=== PATIENT | male | born 1955 | race Asian ===

== ENCOUNTER 2016-10-31 08:32 | Inpatient (IN) | payer OTHER ==
[2016-10-31] VITALS (22 sets, daily range): BP systolic 95–140; BP diastolic 56–82; PULSE 71–86; RESP 16–27; Ht 165.1 cm; Wt 58.0 kg
[~2016-10-31] VITALS: Ht 165.1 cm; Wt 58.0 kg
[~2016-10-31 08:32] MED LIST: SOD CHLORIDE 0.9% 1,000 ML IV SCH
[2016-10-31 09:41] LABS: BASOPHILS % 0.4 % (0.0-2.0); EOSINOPHILS # 0.1 10^3/ul (0.0-0.5); EOSINOPHILS % 1.8 % (0.0-7.0); HEMATOCRIT 47.9 % (42.0-52.0); HEMOGLOBIN 15.4 g/dl (14.0-18.0); LYMPHOCYTES # 2.4 10^3/ul (0.8-2.9); LYMPHOCYTES % 34.6 % (15.0-51.0); MEAN CORPUSCULAR HEMOGLOBIN 28.5 pg (29.0-33.0); MEAN CORPUSCULAR HGB CONC 32.2 g/dl (32.0-37.0); MEAN CORPUSCULAR VOLUME 88.7 fl (82.0-101.0); MEAN PLATELET VOLUME 9.3 fl (7.4-10.4); MONOCYTE # 0.6 10^3/ul (0.3-0.9); MONOCYTES % 8.2 % (0.0-11.0); NEUTROPHILS % 54.6 % (39.0-77.0); PLATELET COUNT 173 10^3/UL (140-415); RED CELL DISTRIBUTION WIDTH 13.2 % (11.5-14.5); WHITE BLOOD COUNT 6.8 10^3/ul (4.8-10.8)
[2016-10-31] MEDS ORDERED: LIDOCAINE 1% (MDV) 20 ML INJ ONE (09:53)
[2016-10-31] MEDS ORDERED: IODIXANOL LOCM 100 ML BTL ONE (09:53)
[2016-10-31] MEDS ORDERED: FENTAnyl 50 MCG/ML VIAL ONE (09:53)
[2016-10-31] MEDS ORDERED: HEPARIN 1000 UNITS/ML 10 ML INJ ONE (09:53)
[2016-10-31] MEDS ORDERED: HEPARIN 1000 UNITS/NS (A-LINE) 1,000 ML ONE (09:53)
[2016-10-31] MEDS ORDERED: MIDAZOLAM 1 MG/ML 2 ML INJ ONE (09:53)
[2016-10-31] MEDS ORDERED: NITROGLYCERIN (IC) 100 MCG/ML INJ ONE (09:54)
[2016-10-31] MEDS ORDERED: VERAPAMIL 5 MG INJ ONE (09:54)
[2016-10-31 09:56] LABS: INR 0.91; PROTIME 12.2 Sec (12.2-14.2)
[2016-10-31 10:03] LABS: CALCIUM 9.4 mg/dl (8.4-10.2); CREATININE 0.82 mg/dl (0.61-1.24); POTASSIUM 4.6 mmol/L (3.5-5.1)
--- NOTE | 2016-10-31 11:10 | OPR ---
Date/Time of Note Date/Time of Note DATE: 10/31/16 TIME: 11:09 Operative Report Free Text/Dictation DATE OF PROCEDURE: 10/31/16 ASSISTANT DIRECTOR: Jeffrey Watson MD PROCEDURES PERFORMED: 1. Left heart catheterization. PREINTERVENTION DIAGNOSIS: 1. Shortness of breath, Positive Stress Echo POSTINTERVENTION DIAGNOSES: 1. Obstructive coronary artery disease with left main involvement SEDATION: Conscious sedation with fentanyl 50 mcg IV and Versed 2.5 mg IV. DESCRIPTION OF PROCEDURE: The patient placed on youth nutritional monitor, pulse oximetry and supplemental oxygen as necessary. The right groin wrist was prepped and draped in a sterile fashion and infiltrated with 1% lidocaine. Via the Seldinger technique, the right radial artery was accessed. A 5-Scottish sheath was inserted and through this the right coronary catheter and left coronary catheter and pigtail were advanced into the right coronary artery and left coronary artery and the left ventricle. Placement confirmed by fluoroscopy and hemodynamics. CATHETERIZATION FINDINGS: 1. Left main: distal 80-90% disease 2. LAD: Large caliber vessel with proximal 30-40% plaque 3. Circumflex: Medium caliber vessel mid 90-95% disease 4. Obtuse marginal1: small to medium caliber vessel with ostial 70% disease 5. Obtuse marginal2: small to medium caliber vessel with ostial 60-70% disease 5. RCA: Large dominant vessel with distal 60% plaque HEMODYNAMICS: LVEDP 12 mm Hg. No significant aortic valve gradient on pigtail pullback. TOTAL CONTRAST: 25cc FLUOROSCOPY TIME: 1.4 minutes. COMPLICATIONS: None. FINAL RESULTS: Multi-vessel obstructive coronary artery disease with left main involvement. RECOMMENDATIONS: 1. Admission for CABG evaluation (Dr. Oleary notified) 2. 2D echo 3. Carotid duplex 4. Check HgbA1c, Fasting lipids 5. ASA 81mg daily 6. Atorvastatin 40mg daily 7. Metoprolol 25mg BID JEFFREY WATSON Oct 31, 2016 11:10 balloon to nominal pressures x []. Repeat angiogram at this time revealed ERIS 3 flow. The stent was then placed across the lesion and successfully deployed at [] atmospheres. Post-stent dilatation was performed with the noncompliant balloon. Final coronary angiogram revealed adequate stent expansion, ERIS 3 flow, and no dissection. TOTAL CONTRAST: [] FLUOROSCOPY TIME: [] minutes. COMPLICATIONS: None. FINAL RESULTS: Successful balloon angioplasty and stent placement of the [] with drug-eluting stent []. Pre-intervention stenosis 99%, post-intervention stenosis less than 5%. RECOMMENDATIONS: 1. Continue aspirin 81 mg daily indefinitely. 2. Continue Plavix 75 mg daily for a minimum of 1 year. 3. [place] aggressive medical therapy with aspirin, statin, beta robe. JEFFREY WATSON Oct 31, 2016 11:10
--- NOTE | 2016-10-31 12:41 | CONS ---
DATE OF ADMISSION: 10/31/2016 DATE OF CONSULTATION: 10/31/2016 REASON FOR CONSULTATION: Evaluation for coronary artery bypass grafting. Thank you, Dr. Devries, for asking me to see this patient. HISTORY OF PRESENT ILLNESS: A 61-year-old male with a history of shortness of breath, admitted to undergo cardiac catheterization, which was done today, which shows 80 percent to 90 percent left main disease, 30 percent to 40 percent LAD disease, in addition to a 90 percent circumflex disease and a 50 percent to 60 percent right coronary artery disease, in addition to 60 percent to 70 percent disease in the obtuse marginal 1 and obtuse marginal 2. The patient currently does not have chest pain. PAST MEDICAL HISTORY: Hypertension, hyperlipidemia. MEDICATIONS: Include: 1. Metoprolol. 2. Atorvastatin. 3. Aspirin. PAST SURGICAL HISTORY: None. ALLERGIES: NONE. SOCIAL HISTORY: No smoking, drinking, or drug use. PHYSICAL EXAMINATION: VITAL SIGNS: Blood pressure is 110/60, pulse is 80, respirations 18. HEART: Regular rate and rhythm. No murmurs. ABDOMEN: Soft. EXTREMITIES: Warm. LABORATORY: Hemoglobin 15.4, white count 6.8, platelet count 173. Normal coagulation factors. A creatinine of 0.82. IMPRESSION: Coronary artery disease involving left main. RECOMMENDATIONS: Patient will need coronary artery bypass grafting. We will admit for observation. We will also get a CT, carotid duplex. Discussed with the patient and Dr. Devries. Dictated By: Hayden Oleary MD /laura/jennifer /Document#: [id number]
[2016-10-31] MEDS ORDERED: SOD CHLORIDE 0.9% 1,000 ML IV SCH (13:30)
--- NOTE | 2016-10-31 15:29 | RADRPT ---
Vent Rate: 81 bpm RR Interval: 0 msec VT Interval: 152 msec QRS Duration: 78 msec QT Interval: 370 msec QTC Interval: 429 msec P-R-T [place]: 72 - 80 - 93 degrees Sinus rhythm with occasional premature ventricular complexes ST abnormality, possible digitalis effect Abnormal ECG Electronically Signed By: Michael Alatorre [id number]
--- NOTE | 2016-10-31 16:51 | HP ---
Date/Time of Note Date/Time of Note DATE: 10/31/16 TIME: 16:50 Assessment/Plan VTE Prophylaxis VTE Prophylaxis Intervention: SCD's Lines/Catheters IV Catheter Type (from Nrsg): Peripheral IV Assessment/Plan Assessment/Plan 61 yo M with CAD admitted for CABG eval after [facility] today revealed sig L main disease PLAN cards/CT surg following TTE and carotid dopplers ordered statin, bb, antiplatelet agent (plavix as pt with alleged asa allergy) diet as per cards and CT surgery a1c, lipids with AM labs DVT prophx HPI/ROS Admit Date/Time Admit Date/Time Oct 31, 2016 at 11:41 Hx of Present Illness 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 Cath today as above. Pt currently without chest pain, SOB or leg swelling PMH/Family/Social Social History lives in the community Smoking Status: Never smoker Exam/Review of Systems Vital Signs Vitals Vital Signs Date Time Temp Pulse Resp B/P Pulse Ox O2 Delivery O2 Flow Rate FiO2 10/31/16 16:13 77 10/31/16 15:21 98.4 18 136/80 100 10/31/16 12:39 Room Air Exam Exam nad MMM EOMI lungs clear abd soft no rashes no le edema [facility] report reviewed Labs Result Diagram: 10/31/16 0930 10/31/16 0930 Medications Medications Current Medications Enoxaparin Sodium (Lovenox) 40 mg DAILY SC ; Start 11/01/16 at 09:00 GLENN PHAN MD Oct 31, 2016 16:51
[2016-10-31] MEDS ORDERED: NACL 0.9% 3 ML SYG IV SCH (17:00)
--- NOTE | 2016-10-31 17:45 | RADRPT ---
PROCEDURE: US carotid arteries. CLINICAL INDICATION: Preoperative for CABG. TECHNIQUE: Multiple sonographic images of the carotid arteries and vertebral arteries were obtaine d utilizing manzano scale, duplex, and color-flow imaging. The images were reviewed on a PACS workstati on. COMPARISON: No prior studies are available for comparison. FINDINGS: Evaluation of the right carotid bifurcation region reveals mild atherosclerotic disease. Evaluation of the left carotid bifurcation region reveals mild atherosclerotic disease. There is antegrade flow within the vertebral arteries bilaterally. RIGHT CAROTID MEASUREMENTS: Common Carotid [id number] (cm/sec) Internal Carotid Artery 79 (cm/sec) External Carotid Artery 108 (cm/sec) Vertebral Artery 58 (cm/sec) Internal Carotid/Common Carotid1.2 LEFT CAROTID MEASUREMENTS: Common Carotid [id number] (cm/sec) Internal Carotid Artery 87 (cm/sec) External Carotid Artery 86 (cm/sec) Vertebral Artery 76 (cm/sec) Internal Carotid/Common Carotid1.0 Validated velocity measurements with angiographic measurements. Velocity criteria are extrapolated f rom diameter data as defined by the Society of Radiologists in Ultrasound Consensus Conference. Radi ology 2003; 229;340-346. This study does indirectly reference the measurement of the distal ICA chloe meter as the denominator for stenosis measurement. IMPRESSION: 1. Less than 50% stenosis bilaterally in the internal carotid arteries. 2. Normal antegrade flow in the vertebral arteries bilaterally. RPTAT: QQ SRU Consensus Conference Criteria for the Diagnosis of Carotid Artery Stenosis* Degree of Stenosis, % ICA PSV, cm/sec Plaque Estimate, % ICA/CCA PSV Ratio Normal <125 None <2.0 <50 <125 <50 <2.0 50 69 125-230 >50 2.0-4.0 >70 but less than near occlusion >230 >50 <4.0 Near occlusion High, low, or undetectable Visible Variable Total occlusion Undetectable Visible, no detectable lumen Not applicable *Cartoid artery stenosis: manzano-scale and Doppler US diagnosis. Society of Radiologists in Ultrasound Consensus Conference. Radiology 2003; 229: 340-346 .Juma Ryder MD, Date Time Electronically viewed and signed by .Juma Ryder MD, on 10/31/2016 17:45 .R/
[2016-10-31] MEDS: ATORVASTATIN 40 MG TAB PO SCH (20:50)
[2016-10-31] MEDS: METOPROLOL 25 MG TAB PO SCH (20:50)
[2016-11-01] VITALS (12 sets, daily range): BP systolic 95–133; BP diastolic 54–71; PULSE 50–63; RESP 18–20
--- NOTE | 2016-11-01 08:23 | CONS ---
Date/Time of Note Date/Time of Note DATE: 11/01/16 TIME: 08:20 Assessment/Plan Assessment/Plan Chief Complaint/Hosp Course Impression: Obstructive coronary artery disease with left main involvement Positive stress echo Premature ventricular contractions Recommendation/plan: 1. CABG evaluation (Dr. Oleary notified) 2. 2D echo 3. Carotid duplex 4. Check HgbA1c, Fasting lipids 5. ASA 81mg daily (patient with questionable allergy; will give test dose in house) 6. NO PLAVIX prior to CABG (did not receive any dose, order d/c'd) 6. Atorvastatin 40mg daily 7. Metoprolol 25mg BID Problems: Consultation Date/Type/Reason Admit Date/Time Oct 31, 2016 at 11:41 Initial Consult Date Type of Consultation: Cardiology 24 HR Interval Summary Free Text/Dictation no chest pain or shortness of breath Exam/Review of Systems Vital Signs Vitals Vital Signs Date Time Temp Pulse Resp B/P Pulse Ox O2 Delivery O2 Flow Rate FiO2 11/01/16 04:42 97.9 20 129/71 100 11/01/16 04:09 50 10/31/16 12:39 Room Air Intake and Output 10/31/16 10/31/16 11/01/16 14:59 22:59 06:59 Intake Total 400 ml 450 ml Balance 400 ml 450 ml Exam Constitutional: alert, oriented, well developed Psych: nl mood/affect, no complaints Head: atraumatic, normocephalic Eyes: EOMI, PERRL, nl conjunctiva, nl lids, nl sclera ENMT: nl external ears & nose, nl lips & teeth, nl nasal mucosa & septum Neck: non-tender, supple Respiratory: clear to auscultation, normal air movement Cardiovascular: nl pulses, regular rate and rhythm Gastrointestinal: nl liver, spleen, non-tender, soft Musculoskeletal: nl extremities to inspection, nl gait and stance Extremities: normal pulses Neurological: DUDE RANCH MANAGER II-XII 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, nl mental status, nl speech, nl strength Skin: nl turgor, No rash or lesions Lymph: nl lymph nodes Results Result Diagram: 10/31/1630 10/31/1630 Results 24 hrs Laboratory Tests Test 10/31/16 09:30 White Blood Count 6.8 Red Blood Count 5.40 Hemoglobin 15.4 Hematocrit 47.9 Mean Corpuscular Volume 88.7 Mean Corpuscular Hemoglobin 28.5 L Mean Corpuscular Hemoglobin Concent 32.2 Red Cell Distribution Width 13.2 Platelet Count 173 Mean Platelet Volume 9.3 Neutrophils % 54.6 Lymphocytes % 34.6 Monocytes % 8.2 Eosinophils % 1.8 Basophils % 0.4 Nucleated Red Blood Cells % 0.0 Neutrophils # (Manual) 3.7 Lymphocytes # 2.4 Monocytes # 0.6 Eosinophils # 0.1 Basophils # 0.0 Nucleated Red Blood Cells # 0.0 Prothrombin Time 12.2 Prothrombin Time Ratio 1.0 INR International Normalized Ratio 0.91 Sodium Level 142 Potassium Level 4.6 Chloride Level 104 Carbon Dioxide Level 29 Anion Gap 14 Blood Urea Nitrogen 13 Creatinine 0.82 Glucose Level 93 Calcium Level 9.4 Medications Medications Current Medications Enoxaparin Sodium (Lovenox) 40 mg DAILY SC ; Start 11/01/16 at 09:00 Atorvastatin Calcium (Lipitor) 40 mg HS PO Last administered on 10/31/16 20:50 ; Admin Dose 40 MG; Start 10/31/16 at 21:00 Clopidogrel Bisulfate (plaVIX) 75 mg DAILY PO ; Start 11/01/16 at 09:00 Metoprolol Tartrate (Lopressor) 25 mg BID PO Last administered on 10/31/16 20: 50; Admin Dose 25 MG; Start 10/31/16 at 21:00 NEHEMIAS WATSON Nov 01, 2016 08:23
[2016-11-01 08:57] LABS: BASOPHILS % 0.6 % (0.0-2.0); EOSINOPHILS # 0.1 10^3/ul (0.0-0.5); EOSINOPHILS % 1.7 % (0.0-7.0); HEMATOCRIT 52.3 % (42.0-52.0); HEMOGLOBIN 16.3 g/dl (14.0-18.0); LYMPHOCYTES # 1.8 10^3/ul (0.8-2.9); LYMPHOCYTES % 27.4 % (15.0-51.0); MEAN CORPUSCULAR HEMOGLOBIN 28.2 pg (29.0-33.0); MEAN CORPUSCULAR HGB CONC 31.2 g/dl (32.0-37.0); MEAN CORPUSCULAR VOLUME 90.3 fl (82.0-101.0); MEAN PLATELET VOLUME 9.8 fl (7.4-10.4); MONOCYTE # 0.5 10^3/ul (0.3-0.9); MONOCYTES % 7.1 % (0.0-11.0); NEUTROPHILS % 62.9 % (39.0-77.0); PLATELET COUNT 154 10^3/UL (140-415); RED BLOOD COUNT 5.79 10^6/ul (4.70-6.10); RED CELL DISTRIBUTION WIDTH 13.6 % (11.5-14.5); WHITE BLOOD COUNT 6.6 10^3/ul (4.8-10.8)
[2016-11-01] MEDS ORDERED: METOPROLOL (XL) 25 MG TAB PO SCH (09:00)
[2016-11-01] MEDS ORDERED: ASPIRIN 81 MG TAB PO SCH (09:00)
[2016-11-01] MEDS ORDERED: CLOPIDOGREL 75 MG TAB PO SCH (09:00)
[2016-11-01 09:23] LABS: ALBUMIN 4.4 g/dl (3.3-4.9); ALBUMIN/GLOBULIN RATIO 1.25; CALCIUM 9.3 mg/dl (8.4-10.2); CHOL/HDL RATIO 3.3 RATIO; CREATININE 0.8 mg/dl (0.61-1.24); POTASSIUM 4.8 mmol/L (3.5-5.1); TOTAL PROTEIN 7.9 g/dl (6.1-8.1)
[2016-11-01] MEDS: ASPIRIN 81 MG TAB PO SCH (10:33)
[2016-11-01] MEDS: ENOXAPARIN 40 MG/0.4 ML SYG SC SCH (10:34)
[2016-11-01] MEDS: METOPROLOL 25 MG TAB PO SCH ×2 (10:34→20:46)
--- NOTE | 2016-11-01 14:39 | PN ---
Date/Time of Note Date/Time of Note DATE: 11/01/16 TIME: 14:36 Assessment/Plan VTE Prophylaxis VTE Prophylaxis Intervention: other Lines/Catheters IV [facility] Central line still needed: No Urinary Cath still in place: No Assessment/Plan Assessment/Plan IMPRESSION: Coronary artery disease involving left main. RECOMMENDATIONS: Patient will need coronary artery bypass grafting. We will admit for observation. Carotid dupplex 1. Less than 50% stenosis bilaterally in the internal carotid arteries. 2. Normal antegrade flow in the vertebral arteries bilaterally. Carotid dupplex Plan for CABG on Thursday Subjective 24 Hr Interval Summary Gastrointestinal: no complaints Genitourinary: no complaints Musculoskeletal: no complaints Skin: no complaints Exam/Review of Systems Vital Signs Vitals Vital Signs Date Time Temp Pulse Resp B/P Pulse Ox O2 Delivery O2 Flow Rate FiO2 11/01/16 12:15 54 11/01/16 12:00 97.7 20 133/67 96 10/31/16 12:39 Room Air Intake and Output 10/31/16 10/31/16 11/01/16 15:00 23:00 07:00 Intake Total 400 ml 450 ml Balance 400 ml 450 ml Exam ENMT: nl external ears & nose, nl lips & teeth, nl nasal mucosa & septum Neck: non-tender, supple Respiratory: clear to auscultation, normal air movement Cardiovascular: nl pulses, regular rate and rhythm Results Result Diagram: 11/01/16 0821 11/01/16 0819 Results 24 hrs Laboratory Tests Test 11/01/16 08:19 11/01/16 08:21 Sodium Level 141 Potassium Level 4.8 Chloride Level 105 Carbon Dioxide Level 28 Anion Gap 13 Blood Urea Nitrogen 15 Creatinine 0.80 Glucose Level 80 Hemoglobin A1c 5.5 Calcium Level 9.3 Total Bilirubin 1.0 Direct Bilirubin 0.00 Indirect Bilirubin 1.0 Aspartate Amino Transf (AST/SGOT) 39 Alanine Aminotransferase (ALT/SGPT) 34 Alkaline Phosphatase 51 Total Protein 7.9 Albumin 4.4 Globulin 3.50 H Albumin/Globulin Ratio 1.25 Triglycerides Level 64 Cholesterol Level 205 H LDL Cholesterol, Calculated 131 HDL Cholesterol 61 Cholesterol/HDL Ratio 3.3 White Blood Count 6.6 Red Blood Count 5.79 Hemoglobin 16.3 Hematocrit 52.3 H Mean Corpuscular Volume 90.3 Mean Corpuscular Hemoglobin 28.2 L Mean Corpuscular Hemoglobin Concent 31.2 L Red Cell Distribution Width 13.6 Platelet Count 154 Mean Platelet Volume 9.8 Neutrophils % 62.9 Lymphocytes % 27.4 Monocytes % 7.1 Eosinophils % 1.7 Basophils % 0.6 Nucleated Red Blood Cells % 0.0 Neutrophils # (Manual) 4.2 Lymphocytes # 1.8 Monocytes # 0.5 Eosinophils # 0.1 Basophils # 0.0 Nucleated Red Blood Cells # 0.0 Medications Medications Current Medications Enoxaparin Sodium (Lovenox) 40 mg DAILY SC Last administered on 11/01/16 10:34 ; Admin Dose 40 MG; Start 11/01/16 at 09:00 Atorvastatin Calcium (Lipitor) 40 mg HS PO Last administered on 10/31/16 20:50 ; Admin Dose 40 MG; Start 10/31/16 at 21:00 Metoprolol Tartrate (Lopressor) 25 mg BID PO Last administered on 11/01/16 10: 34; Admin Dose 25 MG; Start 10/31/16 at 21:00 Aspirin (Aspirin) 81 mg DAILY PO Last administered on 11/01/16 10:33; Admin Dose 81 MG; Start 11/01/16 at 09:00 SHLOMO HUGHES MD Nov 01, 2016 14:39
--- NOTE | 2016-11-01 15:19 | PN ---
Date/Time of Note Date/Time of Note DATE: 11/01/16 TIME: 15:17 Assessment/Plan VTE Prophylaxis VTE Prophylaxis Intervention: SCD's Lines/Catheters Urinary Cath still in place: No Assessment/Plan Assessment/Plan 61 yo M with CAD admitted for CABG eval after [facility] today revealed sig L main disease PLAN cards/CT surg following TTE ordered; carotid Doppler complete statin, bb, defer antiplatelet agent pre op as per cards re diet as per cards and CT surgery LDL 130s, a1c 5.5 DVT prophx CABG tentatively scheduled for Thursday Subjective 24 Hr Interval Summary Free Text/Dictation No complaints Exam/Review of Systems Vital Signs Vitals Vital Signs Date Time Temp Pulse Resp B/P Pulse Ox O2 Delivery O2 Flow Rate FiO2 11/01/16 12:15 54 11/01/16 12:00 97.7 20 133/67 96 10/31/16 12:39 Room Air Intake and Output 10/31/16 10/31/16 11/01/16 15:00 23:00 07:00 Intake Total 400 ml 450 ml Balance 400 ml 450 ml Exam no mrg lungs clear abd soft no rashes no edema EKG with PVCs Results Result Diagram: 11/01/16 0821 11/01/16 0819 Results 24 hrs Laboratory Tests Test 11/01/16 08:19 11/01/16 08:21 Sodium Level 141 Potassium Level 4.8 Chloride Level 105 Carbon Dioxide Level 28 Anion Gap 13 Blood Urea Nitrogen 15 Creatinine 0.80 Glucose Level 80 Hemoglobin A1c 5.5 Calcium Level 9.3 Total Bilirubin 1.0 Direct Bilirubin 0.00 Indirect Bilirubin 1.0 Aspartate Amino Transf (AST/SGOT) 39 Alanine Aminotransferase (ALT/SGPT) 34 Alkaline Phosphatase 51 Total Protein 7.9 Albumin 4.4 Globulin 3.50 H Albumin/Globulin Ratio 1.25 Triglycerides Level 64 Cholesterol Level 205 H LDL Cholesterol, Calculated 131 HDL Cholesterol 61 Cholesterol/HDL Ratio 3.3 White Blood Count 6.6 Red Blood Count 5.79 Hemoglobin 16.3 Hematocrit 52.3 H Mean Corpuscular Volume 90.3 Mean Corpuscular Hemoglobin 28.2 L Mean Corpuscular Hemoglobin Concent 31.2 L Red Cell Distribution Width 13.6 Platelet Count 154 Mean Platelet Volume 9.8 Neutrophils % 62.9 Lymphocytes % 27.4 Monocytes % 7.1 Eosinophils % 1.7 Basophils % 0.6 Nucleated Red Blood Cells % 0.0 Neutrophils # (Manual) 4.2 Lymphocytes # 1.8 Monocytes # 0.5 Eosinophils # 0.1 Basophils # 0.0 Nucleated Red Blood Cells # 0.0 Medications Medications Current Medications Enoxaparin Sodium (Lovenox) 40 mg DAILY SC Last administered on 11/01/16 10:34 ; Admin Dose 40 MG; Start 11/01/16 at 09:00 Atorvastatin Calcium (Lipitor) 40 mg HS PO Last administered on 10/31/16 20:50 ; Admin Dose 40 MG; Start 10/31/16 at 21:00 Metoprolol Tartrate (Lopressor) 25 mg BID PO Last administered on 11/01/16 10: 34; Admin Dose 25 MG; Start 10/31/16 at 21:00 Aspirin (Aspirin) 81 mg DAILY PO Last administered on 11/01/16 10:33; Admin Dose 81 MG; Start 11/01/16 at 09:00 GLENN PHAN MD Nov 01, 2016 15:19
[2016-11-01] MEDS: ATORVASTATIN 40 MG TAB PO SCH (20:46)
[2016-11-02] VITALS (11 sets, daily range): BP systolic 106–128; BP diastolic 58–78; PULSE 53–63; RESP 17–19
[2016-11-02 07:56] LABS: BASOPHILS % 0.6 % (0.0-2.0); EOSINOPHILS # 0.1 10^3/ul (0.0-0.5); HEMATOCRIT 51.9 % (42.0-52.0); HEMOGLOBIN 16.4 g/dl (14.0-18.0); LYMPHOCYTES # 2.4 10^3/ul (0.8-2.9); LYMPHOCYTES % 34.2 % (15.0-51.0); MEAN CORPUSCULAR HEMOGLOBIN 28.1 pg (29.0-33.0); MEAN CORPUSCULAR HGB CONC 31.6 g/dl (32.0-37.0); MEAN PLATELET VOLUME 9.5 fl (7.4-10.4); MONOCYTE # 0.5 10^3/ul (0.3-0.9); MONOCYTES % 6.5 % (0.0-11.0); NEUTROPHILS % 56.4 % (39.0-77.0); PLATELET COUNT 173 10^3/UL (140-415); RED BLOOD COUNT 5.83 10^6/ul (4.70-6.10); RED CELL DISTRIBUTION WIDTH 13.6 % (11.5-14.5)
[2016-11-02 08:18] LABS: ALBUMIN 4.4 g/dl (3.3-4.9); ALBUMIN/GLOBULIN RATIO 1.22; BILIRUBIN,INDIRECT 0.9 mg/dl (0-1.1); BILIRUBIN,TOTAL 0.9 mg/dl (0.2-1.3); CALCIUM 9.6 mg/dl (8.4-10.2); CREATININE 0.77 mg/dl (0.61-1.24); POTASSIUM 4.5 mmol/L (3.5-5.1)
[2016-11-02] MEDS: ENOXAPARIN 40 MG/0.4 ML SYG SC SCH (08:51)
[2016-11-02] MEDS: ASPIRIN 81 MG TAB PO SCH (08:52)
[2016-11-02] MEDS: METOPROLOL 25 MG TAB PO SCH ×2 (08:53→21:00)
--- NOTE | 2016-11-02 12:05 | CONS ---
Date/Time of Note Date/Time of Note DATE: 11/02/16 TIME: 12:03 Assessment/Plan Assessment/Plan Chief Complaint/Hosp Course Impression: Obstructive coronary artery disease with left main involvement Positive stress echo Abnormal EKG Premature ventricular contractions Recommendation/plan: 1. CABG evaluation; for OR Thursday per Dr. Oleary 2. ASA 81mg daily (not true allergy, tolerating fine) 3. Atorvastatin 40mg daily 4. Metoprolol 25mg BID Problems: Consultation Date/Type/Reason Admit Date/Time Oct 31, 2016 at 11:41 Type of Consultation: Cardiology 24 HR Interval Summary Free Text/Dictation no chest pain or shortness of breath Exam/Review of Systems Vital Signs Vitals Vital Signs Date Time Temp Pulse Resp B/P Pulse Ox O2 Delivery O2 Flow Rate FiO2 11/02/16 08:14 58 11/02/16 07:54 98.0 18 115/64 98 10/31/16 12:39 Room Air Intake and Output 11/01/16 11/01/16 11/02/16 15:00 23:00 07:00 Intake Total 1020 ml 60 ml Balance 1020 ml 60 ml Exam Constitutional: alert, oriented, well developed Psych: nl mood/affect, no complaints Head: atraumatic, normocephalic Eyes: EOMI, PERRL, nl conjunctiva, nl lids, nl sclera ENMT: nl external ears & nose, nl lips & teeth, nl nasal mucosa & septum Neck: non-tender, supple Respiratory: clear to auscultation, normal air movement Cardiovascular: nl pulses, regular rate and rhythm Gastrointestinal: nl liver, spleen, non-tender, soft Musculoskeletal: nl extremities to inspection, nl gait and stance Extremities: normal pulses Neurological: PROP DRAWER II-XII intact, nl mental status, nl speech, nl strength Skin: nl turgor, No rash or lesions Lymph: nl lymph nodes Results Result Diagram: 11/02/16 0730 11/02/16 0724 Results 24 hrs Laboratory Tests Test 11/02/16 07:24 11/02/16 07:30 Sodium Level 140 Potassium Level 4.5 Chloride Level 104 Carbon Dioxide Level 28 Anion Gap 13 Blood Urea Nitrogen 16 Creatinine 0.77 Glucose Level 78 Calcium Level 9.6 Total Bilirubin 0.9 Direct Bilirubin 0.00 Indirect Bilirubin 0.9 Aspartate Amino Transf (AST/SGOT) 30 Alanine Aminotransferase (ALT/SGPT) 40 Alkaline Phosphatase 60 Total Protein 8.0 Albumin 4.4 Globulin 3.60 H Albumin/Globulin Ratio 1.22 White Blood Count 7.0 Red Blood Count 5.83 Hemoglobin 16.4 Hematocrit 51.9 Mean Corpuscular Volume 89.0 Mean Corpuscular Hemoglobin 28.1 L Mean Corpuscular Hemoglobin Concent 31.6 L Red Cell Distribution Width 13.6 Platelet Count 173 Mean Platelet Volume 9.5 Neutrophils % 56.4 Lymphocytes % 34.2 Monocytes % 6.5 Eosinophils % 2.0 Basophils % 0.6 Nucleated Red Blood Cells % 0.0 Neutrophils # (Manual) 3.9 Lymphocytes # 2.4 Monocytes # 0.5 Eosinophils # 0.1 Basophils # 0.0 Nucleated Red Blood Cells # 0.0 Medications Medications Current Medications Enoxaparin Sodium (Lovenox) 40 mg DAILY SC Last administered on 11/01/16 10:34 ; Admin Dose 40 MG; Start 11/01/16 at 09:00 Atorvastatin Calcium (Lipitor) 40 mg HS PO Last administered on 11/01/16 20:46 ; Admin Dose 40 MG; Start 10/31/16 at 21:00 Metoprolol Tartrate (Lopressor) 25 mg BID PO Last administered on 11/02/16 08: 53; Admin Dose 25 MG; Start 10/31/16 at 21:00 Aspirin (Aspirin) 81 mg DAILY PO Last administered on 11/02/16 08:52; Admin Dose 81 MG; Start 11/01/16 at 09:00 NEHEMIAS WATSON Nov 02, 2016 12:05
--- NOTE | 2016-11-02 16:31 | PN ---
Date/Time of Note Date/Time of Note DATE: 11/02/16 TIME: 16:30 Assessment/Plan VTE Prophylaxis VTE Prophylaxis Intervention: SCD's Lines/Catheters IV Catheter Type (from Nrsg): Peripheral IV Urinary Cath still in place: No Assessment/Plan Assessment/Plan 61 yo M with CAD admitted for CABG eval after [facility] revealed sig L main disease PLAN cards/CT surg following TTE ordered; carotid Doppler complete statin, bb, asa diet as per cards and CT surgery a1c 5.5 DVT prophx CABG tentatively scheduled for Thursday Subjective 24 Hr Interval Summary Free Text/Dictation sitting in chair, no complaints Exam/Review of Systems Vital Signs Vitals Vital Signs Date Time Temp Pulse Resp B/P Pulse Ox O2 Delivery O2 Flow Rate FiO2 11/02/16 16:14 97.0 80 18 110/78 98 10/31/16 12:39 Room Air Intake and Output 11/01/16 11/01/16 11/02/16 15:00 23:00 07:00 Intake Total 1020 ml 60 ml Balance 1020 ml 60 ml Exam using his phone resp nonlabored no gross abd distension no rashes no edema Results Result Diagram: 11/02/16 0730 11/02/16 0724 Results 24 hrs Laboratory Tests Test 11/02/16 07:24 11/02/16 07:30 Sodium Level 140 Potassium Level 4.5 Chloride Level 104 Carbon Dioxide Level 28 Anion Gap 13 Blood Urea Nitrogen 16 Creatinine 0.77 Glucose Level 78 Calcium Level 9.6 Total Bilirubin 0.9 Direct Bilirubin 0.00 Indirect Bilirubin 0.9 Aspartate Amino Transf (AST/SGOT) 30 Alanine Aminotransferase (ALT/SGPT) 40 Alkaline Phosphatase 60 Total Protein 8.0 Albumin 4.4 Globulin 3.60 H Albumin/Globulin Ratio 1.22 White Blood Count 7.0 Red Blood Count 5.83 Hemoglobin 16.4 Hematocrit 51.9 Mean Corpuscular Volume 89.0 Mean Corpuscular Hemoglobin 28.1 L Mean Corpuscular Hemoglobin Concent 31.6 L Red Cell Distribution Width 13.6 Platelet Count 173 Mean Platelet Volume 9.5 Neutrophils % 56.4 Lymphocytes % 34.2 Monocytes % 6.5 Eosinophils % 2.0 Basophils % 0.6 Nucleated Red Blood Cells % 0.0 Neutrophils # (Manual) 3.9 Lymphocytes # 2.4 Monocytes # 0.5 Eosinophils # 0.1 Basophils # 0.0 Nucleated Red Blood Cells # 0.0 Medications Medications Current Medications Enoxaparin Sodium (Lovenox) 40 mg DAILY SC Last administered on 11/01/16 10:34 ; Admin Dose 40 MG; Start 11/01/16 at 09:00 Atorvastatin Calcium (Lipitor) 40 mg HS PO Last administered on 11/01/16 20:46 ; Admin Dose 40 MG; Start 10/31/16 at 21:00 Metoprolol Tartrate (Lopressor) 25 mg BID PO Last administered on 11/02/16 08: 53; Admin Dose 25 MG; Start 10/31/16 at 21:00 Aspirin (Aspirin) 81 mg DAILY PO Last administered on 11/02/16 08:52; Admin Dose 81 MG; Start 11/01/16 at 09:00 GLENN PHAN MD Nov 02, 2016 16:30
[2016-11-02] MEDS: ATORVASTATIN 40 MG TAB PO SCH (21:09)
[2016-11-03] VITALS (11 sets, daily range): BP systolic 96–127; BP diastolic 51–66; PULSE 54–96; RESP 17–20
[2016-11-03 07:45] LABS: BASOPHILS % 0.3 % (0.0-2.0); EOSINOPHILS # 0.2 10^3/ul (0.0-0.5); EOSINOPHILS % 2.7 % (0.0-7.0); HEMATOCRIT 47.9 % (42.0-52.0); HEMOGLOBIN 15.4 g/dl (14.0-18.0); LYMPHOCYTES # 1.7 10^3/ul (0.8-2.9); MEAN CORPUSCULAR HEMOGLOBIN 28.7 pg (29.0-33.0); MEAN CORPUSCULAR HGB CONC 32.2 g/dl (32.0-37.0); MEAN CORPUSCULAR VOLUME 89.2 fl (82.0-101.0); MEAN PLATELET VOLUME 10.2 fl (7.4-10.4); MONOCYTE # 0.5 10^3/ul (0.3-0.9); MONOCYTES % 7.6 % (0.0-11.0); NEUTROPHILS % 61.1 % (39.0-77.0); PLATELET COUNT 157 10^3/UL (140-415); RED BLOOD COUNT 5.37 10^6/ul (4.70-6.10); RED CELL DISTRIBUTION WIDTH 13.3 % (11.5-14.5)
[2016-11-03] MEDS: METOPROLOL 25 MG TAB PO SCH ×2 (08:22→20:37)
[2016-11-03] MEDS: ENOXAPARIN 40 MG/0.4 ML SYG SC SCH (08:23)
[2016-11-03 08:26] LABS: ALBUMIN/GLOBULIN RATIO 1.29; BILIRUBIN,INDIRECT 0.5 mg/dl (0-1.1); BILIRUBIN,TOTAL 0.5 mg/dl (0.2-1.3); CREATININE 0.91 mg/dl (0.61-1.24); POTASSIUM 4.7 mmol/L (3.5-5.1); TOTAL PROTEIN 7.1 g/dl (6.1-8.1)
[2016-11-03] MEDS: ASPIRIN 81 MG TAB PO SCH (08:29)
--- NOTE | 2016-11-03 15:54 | RADRPT ---
PROCEDURE: XR Chest. CLINICAL INDICATION: Preoperative. TECHNIQUE: Single frontal view. COMPARISON: None. FINDINGS: The lungs are clear. The heart size is normal. There is no pleural effusion. There is no pneumothorax. IMPRESSION: 1. Normal chest radiograph. RPTAT: QQ .Juma Ryder MD, Date Time Electronically viewed and signed by .Juma Ryder MD, on 11/03/2016 15:53 .R/
--- NOTE | 2016-11-03 16:53 | PN ---
Date/Time of Note Date/Time of Note DATE: 11/03/16 TIME: 16:46 Assessment/Plan VTE Prophylaxis VTE Prophylaxis Intervention: LMWH Lines/Catheters IV Catheter Type (from Nrs): Peripheral IV Urinary Cath still in place: No Assessment/Plan Chief Complaint/Hosp Course Assessment/Plan: 61 yo M with CAD admitted for CABG eval after LHC revealed sig L main disease PLAN: cards/CT surg following TTE ordered; carotid Doppler complete statin, bb, asa diet as per cards and CT surgery a1c 5.5 DVT prophx CABG scheduled for Thursday Problems: Exam/Review of Systems Vital Signs Vitals Vital Signs Date Time Temp Pulse Resp B/P Pulse Ox O2 Delivery O2 Flow Rate FiO2 11/03/16 16:15 75 11/03/16 16:11 97.7 20 127/60 100 10/31/16 12:39 Room Air Intake and Output 11/02/16 11/02/16 11/03/16 15:00 23:00 07:00 Intake Total 750 ml 320 ml Output Total 1000 ml 525 ml Balance -250 ml -205 ml Exam No acute distress resp nonlabored no gross abd distension no rashes no edema Results Result Diagram: 11/03/16 0655 11/03/16 0658 Results 24 hrs Laboratory Tests Test 11/03/16 06:55 11/03/16 06:58 White Blood Count 6.0 Red Blood Count 5.37 Hemoglobin 15.4 Hematocrit 47.9 Mean Corpuscular Volume 89.2 Mean Corpuscular Hemoglobin 28.7 L Mean Corpuscular Hemoglobin Concent 32.2 Red Cell Distribution Width 13.3 Platelet Count 157 Mean Platelet Volume 10.2 Neutrophils % 61.1 Lymphocytes % 28.0 Monocytes % 7.6 Eosinophils % 2.7 Basophils % 0.3 Nucleated Red Blood Cells % 0.0 Neutrophils # (Manual) 3.6 Lymphocytes # 1.7 Monocytes # 0.5 Eosinophils # 0.2 Basophils # 0.0 Nucleated Red Blood Cells # 0.0 Sodium Level 140 Potassium Level 4.7 Chloride Level 104 Carbon Dioxide Level 29 Anion Gap 12 Blood Urea Nitrogen 20 Creatinine 0.91 Glucose Level 82 Calcium Level 9.0 Total Bilirubin 0.5 Direct Bilirubin 0.00 Indirect Bilirubin 0.5 Aspartate Amino Transf (AST/SGOT) 28 Alanine Aminotransferase (ALT/SGPT) 37 Alkaline Phosphatase 45 Total Protein 7.1 Albumin 4.0 Globulin 3.10 Albumin/Globulin Ratio 1.29 Medications Medications Current Medications Enoxaparin Sodium (Lovenox) 40 mg DAILY SC Last administered on 11/01/16 10:34 ; Admin Dose 40 MG; Start 11/01/16 at 09:00 Atorvastatin Calcium (Lipitor) 40 mg HS PO Last administered on 11/02/16 21:09 ; Admin Dose 40 MG; Start 10/31/16 at 21:00 Metoprolol Tartrate (Lopressor) 25 mg BID PO Last administered on 11/02/16 08: 53; Admin Dose 25 MG; Start 10/31/16 at 21:00 Aspirin (Aspirin) 81 mg DAILY PO Last administered on 11/03/16 08:29; Admin Dose 81 MG; Start 11/01/16 at 09:00 ANGELO FARMER Nov 03, 2016 16:53
[2016-11-03] MEDS ORDERED: ACETAMINOPHEN 325 MG TAB PO PRN (17:00)
[2016-11-03] MEDS ORDERED: ONDANSETRON 4 MG INJ IV PRN (17:00)
[2016-11-03] MEDS: FAMOTIDINE 20 MG TAB PO SCH (17:31)
--- NOTE | 2016-11-03 18:23 | RADRPT ---
Echocardiogram Report Patient Name: LY BOWENS Gender: Male Date: 1955 Study Date: 01-Nov-2016 [place]: Jagdeep Chang [facility] Location: 5555 Ref. Physician: GLENN PHAN Quality: Adequate Procedures: Transthoracic echocardiogram with complete 2D, M-Mode, and doppler examination. Indications: Coronary Artery Disease. 2D/M Mode Doppler Measurement Value Normal Ranges Measurement Value Normal Ranges LVIDd 2D 4.4 3.5 - 5.6 cm AV Peak Marvel 1.2 m/sec LVIDs 2D 3.2 2.1 - 4.1 cm AV Peak PG 6.0 mmHg FS 2D 28.0 % AI Peak PG 25.0 mmHg LVPWd 2D 1.0 0.6 - 1.1 cm AI Peak Marvel 2.5 m/sec IVSd 2D 0.9 0.6 - 1.1 cm AI PHT 844.0 msec IVS/LVPW 2D 0.9 LVOT Peak Marvel 0.9 m/sec AoR Diam 2D 2.7 2.0 - 3.7 cm LVOT Peak PG 3.0 mmHg LA/Ao 2D 1 0 - 1 MV E Peak Marvel 0.8 m/sec EDV 2D 86.9 cm3 MV A Peak Marvel 0.7 m/sec ESV 2D 32.5 cm3 MV E/A 1.2 LA Dimen 2D 3.1 2.3 - 4.0 cm MV Decel Time 151 msec MV E/A 1.2 TR Peak Marvel 2.6 m/sec TR Peak PG 27.0 mmHg RVSP 35.0 mmHg Findings Left Ventricle: Lower limits of normal systolic function. Normal left ventricular cavity size. Normal left ventricular wall thickness. Ejection fraction is visually estimated at 50 %. Abnormal Diastolic Function. Right Ventricle: Normal right ventricular size. Normal right ventricular systolic function. Left Atrium: The left atrium is normal in size. Right Atrium: The right atrium is normal in size. Mitral Valve: Mild mitral leaflet calcification. Mild mitral annular calcification. Mild mitral valve regurgitation. Aortic Valve: Aortic sclerosis without stenosis. Mild aortic valve regurgitation. Tricuspid Valve: Normal appearance of the tricuspid valve. Estimated peak PA systolic pressure 35 mmHg. There is mild tricuspid regurgitation. Pulmonic Valve: Pulmonic valve not well visualized. There is trace pulmonic regurgitation. Pericardium: Normal pericardium with no significant pericardial effusion. Aorta: Normal aortic root. IVC: Normal size and poor respiratory collapse consistent with elevated right atrial pressure. Conclusions 1.Lower limits of normal systolic function. Normal left ventricular cavity size. Normal left ventricular wall thickness. Ejection fraction is visually estimated at 50 %. Abnormal Diastolic Function. 2.Mild mitral leaflet calcification. Mild mitral annular calcification. Mild mitral valve regurgitation. 3.Aortic sclerosis without stenosis. Mild aortic valve regurgitation. 4.Normal appearance of the tricuspid valve. Estimated peak PA systolic pressure 35 mmHg. There is mild tricuspid regurgitation. Electronically Signed By: Sen Robison 03-Nov-2016 18:23:18 -0700 Patient Name: LY BOWENS Study Date: 01-Nov-2016 [id number]
--- NOTE | 2016-11-03 19:45 | CONS ---
Date/Time of Note Date/Time of Note DATE: 11/03/16 TIME: 19:42 Consult Date/Type/Reason Admit Date/Time Oct 31, 2016 at 11:41 Initial Consult Date Type of Consultation: Cardiology Subjective CARDIOLOGY FOLLOW UP NOTE (covering for DR WATSON) . Discussed with the staff emergency was reviewed. Patient remains in sinus rhythm. He denies any chest pain or pressure to me at this point. Denies any shortness of breath made at this point. Denies any palpitation. Subjective: General: no acute distress. thin HEENT: NC/AT. pupils are equal. round. NECK: NO JVD. no stridor. CV: RRR. systolic murmur; no gallop or rubs. PULM: no wheezing or rhonchi. GI: SOFT, NT, ND, no rebound or guarding Extremity: trace B/L LE edema. no clubbing. neuro: awake and alert, OX3. Psych: calm and pleasant rectal: deferred : normal Objective Vital Signs Date Time Temp Pulse Resp B/P Pulse Ox O2 Delivery O2 Flow Rate FiO2 11/03/16 16:15 75 11/03/16 16:11 97.7 20 127/60 100 10/31/16 12:39 Room Air Intake and Output 11/02/16 11/02/16 11/03/16 15:00 23:00 07:00 Intake Total 750 ml 320 ml Output Total 1000 ml 525 ml Balance -250 ml -205 ml Results/Medications Result Diagram: 11/03/16 0655 11/03/16 0658 Results 24 hrs Laboratory Tests Test 11/03/16 06:55 11/03/16 06:58 White Blood Count 6.0 Red Blood Count 5.37 Hemoglobin 15.4 Hematocrit 47.9 Mean Corpuscular Volume 89.2 Mean Corpuscular Hemoglobin 28.7 L Mean Corpuscular Hemoglobin Concent 32.2 Red Cell Distribution Width 13.3 Platelet Count 157 Mean Platelet Volume 10.2 Neutrophils % 61.1 Lymphocytes % 28.0 Monocytes % 7.6 Eosinophils % 2.7 Basophils % 0.3 Nucleated Red Blood Cells % 0.0 Neutrophils # (Manual) 3.6 Lymphocytes # 1.7 Monocytes # 0.5 Eosinophils # 0.2 Basophils # 0.0 Nucleated Red Blood Cells # 0.0 Sodium Level 140 Potassium Level 4.7 Chloride Level 104 Carbon Dioxide Level 29 Anion Gap 12 Blood Urea Nitrogen 20 Creatinine 0.91 Glucose Level 82 Calcium Level 9.0 Total Bilirubin 0.5 Direct Bilirubin 0.00 Indirect Bilirubin 0.5 Aspartate Amino Transf (AST/SGOT) 28 Alanine Aminotransferase (ALT/SGPT) 37 Alkaline Phosphatase 45 Total Protein 7.1 Albumin 4.0 Globulin 3.10 Albumin/Globulin Ratio 1.29 Medications Current Medications Enoxaparin Sodium (Lovenox) 40 mg DAILY SC Last administered on 11/01/16 10:34 ; Admin Dose 40 MG; Start 11/01/16 at 09:00 Atorvastatin Calcium (Lipitor) 40 mg HS PO Last administered on 11/02/16 21:09 ; Admin Dose 40 MG; Start 10/31/16 at 21:00 Metoprolol Tartrate (Lopressor) 25 mg BID PO Last administered on 11/02/16 08: 53; Admin Dose 25 MG; Start 10/31/16 at 21:00 Aspirin (Aspirin) 81 mg DAILY PO Last administered on 11/03/16 08:29; Admin Dose 81 MG; Start 11/01/16 at 09:00 Famotidine (Pepcid) 20 mg DAILY PO Last administered on 11/03/16 17:31; Admin Dose 20 MG; Start 11/03/16 at 18:00 Acetaminophen (Tylenol Tab) 650 mg Q6H PRN PO PAIN AND OR ELEVATED TEMP; Start 11/03/16 at 17:00 Ondansetron HCl (Zofran Inj) 4 mg Q6H PRN IV NAUSEA AND/OR VOMITING; Start 01/09 at 17:00 Acetaminophen/ Hydrocodone Bitart 1 tab 1 tab Q6H PRN PO PAIN LEVEL 8-10; Start 11/03/16 at 17:00 Epinephrine 4 mg/ Dextrose 250 ml @ 0 mls/hr INTRA-OP IV ; Start 11/04/16 at 10: 00 Phenylephrine HCl 250 ml @ 0 mls/hr INTRA-OP IV ; Start 11/04/16 at 10:00 Insulin Human Regular/Sodium Chloride (Novolin-R/NS) 100 ml @ 0 mls/hr INTRA-OP IV ; Start 11/04/16 at 10:00 Assessment/Plan Chief Complaint/Hosp Course severe Obstructive coronary artery disease with left main involvement Positive stress echo Abnormal EKG Premature ventricular contractions HTN dsypnea Recommendation/plan: 1. awaiting CABG by Dr. Oleary 2. ASA 81mg daily 3. Atorvastatin 40mg daily 4. Metoprolol 25mg BID THANK YOU BEBETO JAMES MD [facility] Problems: BEBETO JAMES MD Nov 03, 2016 19:45
[2016-11-03] MEDS: ATORVASTATIN 40 MG TAB PO SCH (20:36)
[2016-11-04] VITALS (32 sets, daily range): BP systolic 64–132; BP diastolic 44–76; PULSE 50–181; RESP 14–25; TEMP 101.5–102
[2016-11-04] MEDS ORDERED: NITROGLYCERIN 50 MG/D5W 250 ML BTL ONE (07:00)
[2016-11-04] MEDS ORDERED: DOPamine-D5W 1.6 MG/ML 250 ML ONE (07:00)
[2016-11-04 07:41] LABS: BASOPHILS % 0.6 % (0.0-2.0); EOSINOPHILS # 0.2 10^3/ul (0.0-0.5); EOSINOPHILS % 2.8 % (0.0-7.0); HEMATOCRIT 50.1 % (42.0-52.0); HEMOGLOBIN 15.6 g/dl (14.0-18.0); LYMPHOCYTES # 1.8 10^3/ul (0.8-2.9); LYMPHOCYTES % 28.1 % (15.0-51.0); MEAN CORPUSCULAR HEMOGLOBIN 27.8 pg (29.0-33.0); MEAN CORPUSCULAR HGB CONC 31.1 g/dl (32.0-37.0); MEAN CORPUSCULAR VOLUME 89.3 fl (82.0-101.0); MEAN PLATELET VOLUME 10.1 fl (7.4-10.4); MONOCYTE # 0.5 10^3/ul (0.3-0.9); MONOCYTES % 7.8 % (0.0-11.0); NEUTROPHILS % 60.2 % (39.0-77.0); PLATELET COUNT 159 10^3/UL (140-415); RED BLOOD COUNT 5.61 10^6/ul (4.70-6.10); RED CELL DISTRIBUTION WIDTH 13.3 % (11.5-14.5); WHITE BLOOD COUNT 6.4 10^3/ul (4.8-10.8)
[2016-11-04 08:12] LABS: ALBUMIN 4.5 g/dl (3.3-4.9); ALBUMIN/GLOBULIN RATIO 1.25; BILIRUBIN,INDIRECT 0.8 mg/dl (0-1.1); BILIRUBIN,TOTAL 0.8 mg/dl (0.2-1.3); CALCIUM 9.8 mg/dl (8.4-10.2); CREATININE 0.92 mg/dl (0.61-1.24); POTASSIUM 4.9 mmol/L (3.5-5.1); TOTAL PROTEIN 8.1 g/dl (6.1-8.1)
[2016-11-04] MEDS ORDERED: GELATIN SIZE 100 SPONGE ONE (08:58)
[2016-11-04] MEDS ORDERED: VANCOMYCIN 1 GM INJ ONE (08:58)
[2016-11-04] MEDS ORDERED: SURGIFOAM POWDER 1 GM KIT ONE (08:58)
[2016-11-04] MEDS ORDERED: THROMBIN 5000 UNIT VIAL ONE (08:59)
[2016-11-04] MEDS ORDERED: HEPARIN 1000 UNITS/ML 10 ML INJ ONE ×5 (08:59→16:54)
[2016-11-04] MEDS ORDERED: PAPAVERINE 60 MG INJ ONE (08:59)
[2016-11-04] MEDS: FAMOTIDINE 20 MG TAB PO SCH (09:00)
[2016-11-04] MEDS: ASPIRIN 81 MG TAB PO SCH (09:00)
[2016-11-04] MEDS: ENOXAPARIN 40 MG/0.4 ML SYG SC SCH (09:00)
[2016-11-04] MEDS: METOPROLOL 25 MG TAB PO SCH ×2 (09:00→21:00)
--- NOTE | 2016-11-04 09:46 | PN ---
Date/Time of Note Date/Time of Note DATE: 11/04/16 TIME: 09:43 Assessment/Plan VTE Prophylaxis VTE Prophylaxis Intervention: LMWH Lines/Catheters IV Catheter Type (from Nrs): Saline Lock Urinary Cath still in place: No Assessment/Plan Chief Complaint/Hosp Course Assessment/Plan: 61 yo M with CAD admitted for CABG eval after LHC revealed sig L main disease PLAN: cards/CT surg following-for bypass surgery today, follow-up post operation recommendations statin, bb, asa diet as per cards and CT surgery a1c 5.5 DVT prophx Problems: Subjective 24 Hr Interval Summary Free Text/Dictation No acute events overnight, awaiting possible bypass surgery for later today. Exam/Review of Systems Vital Signs Vitals Vital Signs Date Time Temp Pulse Resp B/P Pulse Ox O2 Delivery O2 Flow Rate FiO2 11/04/16 08:52 64 11/04/16 07:48 98.6 18 132/67 100 10/31/16 12:39 Room Air Intake and Output 11/03/16 11/03/16 11/04/16 15:00 23:00 07:00 Intake Total 120 ml Balance 120 ml Exam No acute distress resp nonlabored no gross abd distension no rashes no edema Results Result Diagram: 11/04/16 0654 11/04/16 0654 Results 24 hrs Laboratory Tests Test 11/04/16 06:54 White Blood Count 6.4 Red Blood Count 5.61 Hemoglobin 15.6 Hematocrit 50.1 Mean Corpuscular Volume 89.3 Mean Corpuscular Hemoglobin 27.8 L Mean Corpuscular Hemoglobin Concent 31.1 L Red Cell Distribution Width 13.3 Platelet Count 159 Mean Platelet Volume 10.1 Neutrophils % 60.2 Lymphocytes % 28.1 Monocytes % 7.8 Eosinophils % 2.8 Basophils % 0.6 Nucleated Red Blood Cells % 0.0 Neutrophils # (Manual) 3.9 Lymphocytes # 1.8 Monocytes # 0.5 Eosinophils # 0.2 Basophils # 0.0 Nucleated Red Blood Cells # 0.0 Activated Partial Thromboplast Time 30.6 Sodium Level 142 Potassium Level 4.9 Chloride Level 103 Carbon Dioxide Level 32 H Anion Gap 12 Blood Urea Nitrogen 18 Creatinine 0.92 Glucose Level 90 Calcium Level 9.8 Total Bilirubin 0.8 Direct Bilirubin 0.00 Indirect Bilirubin 0.8 Aspartate Amino Transf (AST/SGOT) 40 Alanine Aminotransferase (ALT/SGPT) 51 Alkaline Phosphatase 48 Total Protein 8.1 Albumin 4.5 Globulin 3.60 H Albumin/Globulin Ratio 1.25 Medications Medications Current Medications Enoxaparin Sodium (Lovenox) 40 mg DAILY SC Last administered on 11/01/16 10:34 ; Admin Dose 40 MG; Start 11/01/16 at 09:00 Atorvastatin Calcium (Lipitor) 40 mg HS PO Last administered on 11/03/16 20:36 ; Admin Dose 40 MG; Start 10/31/16 at 21:00 Metoprolol Tartrate (Lopressor) 25 mg BID PO Last administered on 11/03/16 20: 37; Admin Dose 25 MG; Start 10/31/16 at 21:00 Aspirin (Aspirin) 81 mg DAILY PO Last administered on 11/03/16 08:29; Admin Dose 81 MG; Start 11/01/16 at 09:00 Famotidine (Pepcid) 20 mg DAILY PO Last administered on 11/03/16 17:31; Admin Dose 20 MG; Start 11/03/16 at 18:00 Acetaminophen (Tylenol Tab) 650 mg Q6H PRN PO PAIN AND OR ELEVATED TEMP; Start 11/03/16 at 17:00 Ondansetron HCl (Zofran Inj) 4 mg Q6H PRN IV NAUSEA AND/OR VOMITING; Start 01/09 at 17:00 Acetaminophen/ Hydrocodone Bitart 1 tab 1 tab Q6H PRN PO PAIN LEVEL 8-10; Start 11/03/16 at 17:00 Epinephrine 4 mg/ Dextrose 250 ml @ 0 mls/hr INTRA-OP IV ; Start 11/04/16 at 10: 00 Phenylephrine HCl 250 ml @ 0 mls/hr INTRA-OP IV ; Start 11/04/16 at 10:00 Insulin Human Regular/Sodium Chloride (Novolin-R/NS) 100 ml @ 0 mls/hr INTRA-OP IV ; Start 11/04/16 at 10:00 ANGELO FARMER Nov 04, 2016 09:46
[2016-11-04] MEDS ORDERED: PHENYLephrine 20MG IN 250 ML 250 ML IV SCH (10:00)
[2016-11-04] MEDS ORDERED: EPINEPHrine 4 MG in DEXTROSE 5% 246 ML IV SCH (10:00)
[2016-11-04] MEDS ORDERED: INSULIN HUMAN REGULAR 100 UNIT in SOD CHLORIDE 0.9% 99 ML IV SCH ×2 (10:00→23:30)
[2016-11-04] MEDS ORDERED: PHENYLephrine 10 MG INJ ONE ×3 (10:37→17:00)
[2016-11-04] MEDS ORDERED: ALBUMIN HUMAN 25% 300 ML ONE (10:38)
[2016-11-04] MEDS ORDERED: MANNITOL 25% 50 ML ONE (10:39)
[2016-11-04] MEDS ORDERED: AMINOCAPROIC ACID 5 GM INJ ONE ×5 (10:40→17:59)
[2016-11-04] MEDS ORDERED: MIDAZOLAM 5 ML ONE ×2 (10:41→12:38)
[2016-11-04] MEDS ORDERED: POTASSIUM CHLORIDE 40 MEQ INJ ONE ×2 (10:42→10:43)
[2016-11-04] MEDS ORDERED: LIDOCAINE 100 MG SYRINGE ONE ×2 (10:44→14:47)
[2016-11-04] MEDS ORDERED: NA BICARBONATE 8.4% 50 ML SYG ONE (10:44)
[2016-11-04] MEDS ORDERED: CA CHLORIDE 10% 10 ML SYRINGE ONE (10:45)
[2016-11-04] MEDS ORDERED: MAGNESIUM SULFATE (MG) 50% 10 ML INJ ONE (10:45)
[2016-11-04] MEDS ORDERED: PHENYLephrine (100 MCG/ML) 5ML SYG ONE ×4 (10:46→19:39)
[2016-11-04] MEDS ORDERED: CEFAZOLIN 1 GM INJ ONE ×2 (11:38→14:22)
[2016-11-04] MEDS ORDERED: MILRINONE 20MG in D5W 100 ML IV SCH (13:00)
[2016-11-04] MEDS ORDERED: PROTAMINE 250 MG INJ ONE ×2 (14:21→17:59)
[2016-11-04] MEDS ORDERED: FUROSEMIDE 20 MG INJ ONE (16:03)
[2016-11-04] MEDS ORDERED: THROMBIN(HUM PLAS)/FIBRINOG/CA 5 ML VIAL TOP ONE (16:33)
[2016-11-04] MEDS ORDERED: FACTOR VIIA 1 MG VIAL IV SCH ×2 (17:30)
[2016-11-04] MEDS ORDERED: ROCURONIUM 50 MG INJ ONE (19:14)
[2016-11-04] MEDS ORDERED: ETOMIDATE 20 MG INJ ONE (19:14)
[2016-11-04] MEDS ORDERED: LIDOCAINE 2% (SDV) 5 ML INJ ONE (19:14)
--- NOTE | 2016-11-04 19:28 | OPR ---
Date/Time of Note Date/Time of Note DATE: 11/04/16 TIME: 19:19 Operative Report Procedure Date: Nov 04, 2016 Preoperative Diagnosis Coronary artery disease Postoperative Diagnosis Same Operation Performed 1 ALLISON to LAD 2 saphenous vein graft to right coronary artery/PDA 3 saphenous vein graft to the diagonal branch of the LAD 4 after spending graft to the obtuse marginal branch of the circumflex 5 the scopic saphenous vein harvest from the left lower extremity 6 thymectomy 7 right coronary endarterectomy Surgeon: SHLOMO HUGHES MD Bulb Sorter: KENTRELL JEAN M.D. Anesthesia Type: general Estimated Blood Loss: other Transfusion Required: yes Specimen: none Grafts/Implants: none Tubes/Drains Chest tubes Complications: no Pt Condition Post Procedure: critical Indications Coronary artery disease Operative\Procedure Findings Dictated Procedure Description Patient was taken to the operating after induction of general anesthesia was prepped and draped in usual sterile fashion timeout was called antibiotics was given and I started Saphenous vein was harvested from the left thigh using endoscopic technique Left internal mammary artery was harvested using electrocautery and titanium clips after opening the sternum with a sternal saw after making the sternal incision from the sternal notch down to the xiphoid process Chest retractor was placed pericardium opened Mercury was done to gain access into the aorta Patient was fully heparinized cannulation sutures with 3-0 Prolene was applied to the distal ascending aorta mid ascending aorta body of the right atrium and right atrial appendage After adequate documentation of a CT aorta was cannulated followed by two-stage venous cannula antegrade and retrograde cardioplegia cannula Patient was placed on cardiomyopathy bypass aortic cross-clamp was applied Heart was arrested using antegrade and retrograde cardioplegia given every 15- 20 minutes supplemented by slush to the surface of the heart Cardiac procedure was also given through the vein grafts as they were being reconstructed We proceeded with distal anastomoses weeks which included the mammary to LAD saphenous vein graft to the right coronary artery/PDA saphenous vein graft to the first diagonal branch of the LAD and saphenous vein graft to obtuse marginal branch of the circumflex Sac to do coronary endarterectomy of the right coronary artery The proximal to graft which included the right coronary and the circumflex were done on the same cross-clamp The LAD graft was anastomosed end-to-side to the cyst to the obtuse marginal branch graft Katie removed the heart and the graft the area She had tremendous amount of bleeding and required multiple units of blood and packed RBCs FFP platelets and cryo Bleeding slowed down She came off cardiopulmonary bypass without any difficulties protamine given cannulas removed sutures tied and products given 2 chest tubes and 2 mediastinal tubes and 2 pleural tubes were placed brought out through lower stab was secured to skin using 2-0 silk suture After stopping the bleeding for a long time in getting the products the bleeding appeared to be under control Sternal was closed using the cable system [id number] Linea alba and the deep tissues were irrigated using antibiotic solution and closed in 2 layers of #0 Vicryl suture for the deep 2-0 Vicryl suture for subcu and 4-0 Monocryl suture for running subcuticular skin closure The leg was closed in a similar fashion And transported to the intensive care unit SHLOMO HUGHES MD Nov 04, 2016 19:28
[2016-11-04] MEDS: SOD CHLORIDE 0.9% 1,000 ML IV SCH (19:57)
[2016-11-04] MEDS ORDERED: NITROGLYCERIN 50 MG/D5W (PMX) 250 ML IV SCH (20:00)
[2016-11-04] MEDS ORDERED: ONDANSETRON 4 MG INJ IV PRN (20:00)
[2016-11-04] MEDS ORDERED: DOPamine-D5W 1.6 MG/ML 250 ML IV SCH (20:00)
[2016-11-04] MEDS ORDERED: DIPHENHYDRAMINE 50 MG INJ IV PRN (20:00)
[2016-11-04] MEDS: MILRINONE LACTATE 100 ML IV SCH (20:00)
[2016-11-04] MEDS ORDERED: morphine 2 MG INJ IV PRN (20:00)
[2016-11-04] MEDS ORDERED: LORAZEPAM 2 MG INJ IV PRN (20:00)
[2016-11-04] MEDS ORDERED: MEPERIDINE 25 MG INJ IV PRN (20:00)
[2016-11-04] MEDS ORDERED: EPHEDrine SULFATE 50 MG/5 ML SYG IV PRN (20:00)
[2016-11-04] MEDS ORDERED: hydrALAzine 20 MG INJ IV PRN (20:00)
[2016-11-04] MEDS ORDERED: morphine 4 MG/ML VIAL IV PRN (20:00)
[2016-11-04] MEDS ORDERED: LABETALOL HCL 20MG INJ IV PRN (20:00)
[2016-11-04] MEDS ORDERED: MIDAZOLAM 1 MG/ML 2 ML INJ IV PRN (20:00)
[2016-11-04 20:09] LABS: ABNORMAL IP MESSAGE 1; BASOPHILS % 0.2 % (0.0-2.0); EOSINOPHILS # 0.1 10^3/ul (0.0-0.5); EOSINOPHILS % 0.9 % (0.0-7.0); HEMATOCRIT 26.8 % (42.0-52.0); HEMOGLOBIN 8.7 g/dl (14.0-18.0); LYMPHOCYTES # 2.5 10^3/ul (0.8-2.9); LYMPHOCYTES % 20.8 % (15.0-51.0); MEAN CORPUSCULAR HEMOGLOBIN 28.6 pg (29.0-33.0); MEAN CORPUSCULAR HGB CONC 32.5 g/dl (32.0-37.0); MEAN CORPUSCULAR VOLUME 88.2 fl (82.0-101.0); MONOCYTES % 8.7 % (0.0-11.0); NEUTROPHILS % 68.7 % (39.0-77.0); PLATELET COUNT 89 10^3/UL (140-415); POSITIVE DIFF @See below; RED BLOOD COUNT 3.04 10^6/ul (4.70-6.10); RED CELL DISTRIBUTION WIDTH 13.3 % (11.5-14.5); WHITE BLOOD COUNT 11.9 10^3/ul (4.8-10.8)
[2016-11-04] MEDS ORDERED: morphine 4 MG/ML VIAL ONE (20:17)
--- NOTE | 2016-11-04 20:23 | RADRPT ---
PROCEDURE: XR Chest. CLINICAL INDICATION: Status post CABG TECHNIQUE: Single AP portable chest. COMPARISON: 11/03/2016 Chest x-ray FINDINGS: The cardiomediastinal silhouette is within normal limits of size. Mild prominence of pulmonary vascu larity. Kirby-Laverne catheter in satisfactory position. The surgical drains overlying the right and lef t thorax. Sternotomy wires in place. Pneumothorax. Endotracheal tube tip 8.7 cm above the selena. A therosclerotic calcification of the aorta. The lungs are clear without pleural effusion or focal co nsolidation. No pneumothorax. The osseous structures and soft tissues are unremarkable. IMPRESSION: 1. Postoperative changes compatible with CABG. Support devices in satisfactory position. Mild promin ence of the pulmonary vascularity. RPTAT:AAJJ Physician Tamy Date Time Electronically viewed and signed by Physician Tamy on 11/04/2016 20:23 BLAYNE/
[2016-11-04 20:32] LABS: PT RATIO 1.1
[2016-11-04 20:48] LABS: CALCIUM 8.1 mg/dl (8.4-10.2); CREATININE 0.99 mg/dl (0.61-1.24); PHOSPHORUS 5.2 mg/dl (2.5-4.9); POTASSIUM 3.7 mmol/L (3.5-5.1)
[2016-11-04] MEDS ORDERED: PROPOFOL 100 ML ONE (20:53)
[2016-11-04] MEDS: PROPOFOL 100 ML IV SCH (20:59)
[2016-11-04] MEDS: ATORVASTATIN 40 MG TAB PO SCH (21:00)
[2016-11-04 21:44] LABS: INR 1.03; PROTIME 13.5 Sec (12.2-14.2)
[2016-11-04] MEDS: POTASSIUM CHLORIDE 40 MEQ, CALCIUM CHLORIDE 10% 1 GM in DEXTROSE 5%-0.225% NACL 1,000 ML IV SCH (21:44)
[2016-11-04] MEDS: PHENYLephrine 20MG IN 250 ML 250 ML IV SCH ×2 (21:45→23:02)
[2016-11-04] MEDS ORDERED: ACETAMINOPHEN 650 MG SUPP PR PRN (22:00)
[2016-11-04] MEDS ORDERED: HYDROmorphONE 1 MG/ML SYG IV PRN (22:00)
[2016-11-04] MEDS: POTASSIUM CHLORIDE 50 ML IVPB PRN ×2 (22:14→23:32)
[2016-11-04] MEDS ORDERED: ACETAMINOPHEN 1000MG/100ML IV 100 ML IVPB ONE (22:30)
[2016-11-04] MEDS: ACCU-CHEK XX SCH (23:18)
[2016-11-04] MEDS ORDERED: DEXTROSE 50% 50 ML SYRINGE IV PRN ×2 (23:30)
[2016-11-04] MEDS: HYDROmorphONE 1 MG/ML SYG IV PRN (23:36)
[2016-11-05] VITALS (67 sets, daily range): BP systolic 73–116; BP diastolic 35–74; PULSE 90–131; RESP 12–34; TEMP 99.9–101.3
[2016-11-05] MEDS: ALBUMIN HUMAN 5% 250 ML IV PRN ×2 (00:01→00:55)
[2016-11-05] MEDS: PHENYLephrine 80 MG in DEXTROSE 5% 492 ML IV SCH ×2 (00:11→05:09)
[2016-11-05] MEDS: POTASSIUM CHLORIDE 50 ML IVPB PRN (00:24)
[2016-11-05] MEDS: MILRINONE LACTATE 100 ML IV SCH (00:26)
[2016-11-05] MEDS ORDERED: INSULIN ASPART [NOVOLOG] 3 ML PEN SC SCH (01:00)
[2016-11-05] MEDS: ACCU-CHEK XX SCH ×24 (01:05→23:13)
[2016-11-05 04:26] LABS: ABNORMAL IP MESSAGE 1; BASOPHILS % 0.2 % (0.0-2.0); HEMATOCRIT 27.6 % (42.0-52.0); HEMOGLOBIN 9.3 g/dl (14.0-18.0); LYMPHOCYTES # 0.4 10^3/ul (0.8-2.9); LYMPHOCYTES % 4.8 % (15.0-51.0); MEAN CORPUSCULAR HEMOGLOBIN 29.4 pg (29.0-33.0); MEAN CORPUSCULAR HGB CONC 33.7 g/dl (32.0-37.0); MEAN CORPUSCULAR VOLUME 87.3 fl (82.0-101.0); MEAN PLATELET VOLUME 9.3 fl (7.4-10.4); MONOCYTE # 0.7 10^3/ul (0.3-0.9); MONOCYTES % 8.4 % (0.0-11.0); NEUTROPHILS % 86.2 % (39.0-77.0); PLATELET COUNT 120 10^3/UL (140-415); POSITIVE DIFF @See below; RED BLOOD COUNT 3.16 10^6/ul (4.70-6.10); RED CELL DISTRIBUTION WIDTH 14.1 % (11.5-14.5); WHITE BLOOD COUNT 8.1 10^3/ul (4.8-10.8)
[2016-11-05 04:36] LABS: INR 1.04; PROTIME 13.6 Sec (12.2-14.2); PT RATIO 1.1
[2016-11-05 04:37] LABS: PARTIAL THROMBOPLASTIN TIME 37.7 Sec (25.0-35.0)
[2016-11-05 04:42] LABS: ALBUMIN 3.3 g/dl (3.3-4.9); ALBUMIN/GLOBULIN RATIO 1.5; CALCIUM 8.7 mg/dl (8.4-10.2); CREATININE 1.07 mg/dl (0.61-1.24); POTASSIUM 4.7 mmol/L (3.5-5.1); TOTAL PROTEIN 5.5 g/dl (6.1-8.1)
[2016-11-05] MEDS: MAGNESIUM SULFATE 1 GM/D5W 100 ML IVPB PRN ×2 (05:17→06:21)
[2016-11-05 05:26] LABS: AADO2 Arterial 77.3 mmHg (7.0-24.0); Arterial Base Excess -1.6 mmol/L (-3.0-3); Arterial COHb 0.2 % (0.0-3.0); Arterial Fraction of Oxyhgb 97.7 % (93.0-99.0); Arterial MetHb 0.4 % (0.0-1.5); Arterial Total Hemglobin 10.1 g/dl (12.0-18.0); MODE VENT - AC
--- NOTE | 2016-11-05 07:21 | CONS ---
Date/Time of Note Date/Time of Note DATE: 11/05/16 TIME: 07:13 Consult Date/Type/Reason Admit Date/Time Oct 31, 2016 at 11:41 Type of Consultation: Cardiology Subjective CARDIOLOGY / critical care FOLLOW UP NOTE (covering for DR WATSON) . Discussed with the staff and rhythm was reviewed. pt s/p CABG 11/04/16. HE is still intubated on vent. events noted. post op bleeding noted. pt also hypotensive pos op and on multiple drips/and on neosynephrine drip. pt remains in NSR/ sinus tachy. Subjective: General: intubated on vent. HEENT: NC/AT. pupils are equal. round. NECK: s/p R IJ PA catheter. no stridor. CV: RRR. systolic murmur; no gallop or rubs. PULM: no wheezing or rhonchi. chest : s/p sternotomy. s/p multiple chest tubes in place. GI: SOFT, NT, ND, no rebound or guarding Extremity: trace B/L LE edema. no clubbing. neuro: sedated Psych: calm and pleasant rectal: deferred ECG NSR ST elevation c/w pericarditis. Objective Vital Signs Date Time Temp Pulse Resp B/P Pulse Ox O2 Delivery O2 Flow Rate FiO2 11/05/16 06:00 101.1 99 14 95/35 100 11/05/16 05:30 30 Intake and Output 11/04/16 11/04/16 11/05/16 15:00 23:00 07:00 Intake Total 100 ml 5359.235 ml 2987.98 ml Output Total 3023 ml 1210 ml Balance 100 ml 2336.235 ml 1777.98 ml Results/Medications Result Diagram: 11/05/16 0400 11/05/16 0400 Results 24 hrs Laboratory Tests Test 11/04/16 19:28 11/04/16 19:42 11/04/16 19:49 11/04/16 20:00 Blood Gas Specimen Source Blood arterial Blood venous Arterial Blood Date Drawn 11/04/2016 8:12:48 PM 11/04/2016 9:18:06 PM Arterial Blood pH (Temp corrected) 7.356 7.318 L Arterial Blood pCO2 (Temp correct) 44.0 50.8 H Arterial Blood pO2 (Temp corrected) 274.6 H 33.5 *L Arterial Blood HCO3 24.1 25.5 Arterial Blood Base Excess -1.4 -1.0 Arterial Blood Oxygen Saturation 98.8 H 63.0 L Olvin Test N/A N/A Arterial Blood Gas Puncture Site A-Line VENOUS LINE Arterial Blood Carboxyhemoglobin 0.2 0.3 Arterial Blood Methemoglobin 0.7 0.6 Blood Gas A-a O2 Differential 177.2 H 193.3 Oxyhemoglobin Percent 97.9 62.4 L Total Hemoglobin 9.8 L 10.5 L Blood Gas Temperature 37.0 37.0 Blood Gas Respiration Rate 14.0 14.0 Blood Gas Actual Respiration Rate 24 22 Blood Gas Modality VENT - AC VENT - AC FiO2 70.0 40.0 Blood Gas Tidal Volume 550.0 550.0 Blood Gas Low PEEP Setting 5.0 5.0 Blood Gas Inspiratory Pressure 28.0 26.0 Blood Gas Notified Whom MG RTR Blood Gas Notified Time 11/04/2016 8:22:16 PM 11/04/2016 9:28:22 PM Mixed Venous Blood pH 7.318 L Mixed Venous Blood PCO2 50.8 Mixed Venous Blood PO2 33.5 Mixed Venous Blood HCO3 25.5 Mixed Venous Blood Base Excess -1.0 Mixed Venous Blood O2 Saturation 63.0 L Mixed Venous Blood Total Hemoglobin 10.5 Mixed Venous Blood Oxyhemoglobin 62.4 Mixed Venous Bld Carboxyhemoglobin 0.3 Mixed Venous Blood Methemoglobin 0.6 Bedside Glucose 115 White Blood Count 11.9 #H Red Blood Count 3.04 #L Hemoglobin 8.7 #L Hematocrit 26.8 #L Mean Corpuscular Volume 88.2 Mean Corpuscular Hemoglobin 28.6 L Mean Corpuscular Hemoglobin Concent 32.5 Red Cell Distribution Width 13.3 Platelet Count 89 #L Mean Platelet Volume 10.0 Neutrophils % 68.7 Lymphocytes % 20.8 Monocytes % 8.7 Eosinophils % 0.9 Basophils % 0.2 Nucleated Red Blood Cells % 0.0 Neutrophils # (Manual) 8.2 H Lymphocytes # 2.5 Monocytes # 1.0 H Eosinophils # 0.1 Basophils # 0.0 Nucleated Red Blood Cells # 0.0 Prothrombin Time 13.5 Prothrombin Time Ratio 1.1 INR International Normalized Ratio 1.03 Activated Partial Thromboplast Time 34.0 Sodium Level 143 Potassium Level 3.7 Chloride Level 113 H Carbon Dioxide Level 26 Anion Gap 8 Blood Urea Nitrogen 16 Creatinine 0.99 Glucose Level 105 Calcium Level 8.1 L Phosphorus Level 5.2 H Magnesium Level 2.0 Test 11/04/16 23:04 11/05/16 00:15 11/05/16 00:16 11/05/16 01:04 Bedside Glucose 135 164 176 Lactic Acid Level 2.5 *H Test 11/05/16 03:08 11/05/16 04:00 11/05/16 05:00 11/05/16 05:33 Bedside Glucose 166 161 White Blood Count 8.1 # Red Blood Count 3.16 L Hemoglobin 9.3 L Hematocrit 27.6 L Mean Corpuscular Volume 87.3 Mean Corpuscular Hemoglobin 29.4 Mean Corpuscular Hemoglobin Concent 33.7 Red Cell Distribution Width 14.1 Platelet Count 120 #L Mean Platelet Volume 9.3 Neutrophils % 86.2 H Lymphocytes % 4.8 L Monocytes % 8.4 Eosinophils % 0.0 Basophils % 0.2 Nucleated Red Blood Cells % 0.0 Neutrophils # (Manual) 6.9 Lymphocytes # 0.4 L Monocytes # 0.7 Eosinophils # 0.0 Basophils # 0.0 Nucleated Red Blood Cells # 0.0 Prothrombin Time 13.6 Prothrombin Time Ratio 1.1 INR International Normalized Ratio 1.04 Activated Partial Thromboplast Time 37.7 H Sodium Level 144 Potassium Level 4.7 Chloride Level 113 H Carbon Dioxide Level 24 Anion Gap 12 Blood Urea Nitrogen 15 Creatinine 1.07 Glucose Level 173 Lactic Acid Level 4.1 *H Calcium Level 8.7 Magnesium Level 1.9 Total Bilirubin 1.0 Direct Bilirubin 0.00 Indirect Bilirubin 1.0 Aspartate Amino Transf (AST/SGOT) 91 #H Alanine Aminotransferase (ALT/SGPT) 39 Alkaline Phosphatase 27 L Total Protein 5.5 #L Albumin 3.3 # Globulin 2.20 Albumin/Globulin Ratio 1.50 Blood Gas Specimen Source Blood arterial Arterial Blood Date Drawn 11/05/2016 5:10:23 AM Arterial Blood pH (Temp corrected) 7.356 Arterial Blood pCO2 (Temp correct) 43.8 Arterial Blood pO2 (Temp corrected) 157.5 H Arterial Blood HCO3 24.0 Arterial Blood Base Excess -1.6 Arterial Blood Oxygen Saturation 98.3 H Olvin Test N/A Arterial Blood Gas Puncture Site A-Line Arterial Blood Carboxyhemoglobin 0.2 Arterial Blood Methemoglobin 0.4 Blood Gas A-a O2 Differential 77.3 H Oxyhemoglobin Percent 97.7 Total Hemoglobin 10.1 L Blood Gas Temperature 37.0 Blood Gas Respiration Rate 14.0 Blood Gas Actual Respiration Rate 14 Blood Gas Modality VENT - AC FiO2 40.0 Blood Gas Tidal Volume 550.0 Blood Gas Low PEEP Setting 5.0 Blood Gas Inspiratory Pressure 19.0 Blood Gas Notified Whom MG Blood Gas Notified Time 11/05/2016 5:26:05 AM Lab Scanned Report BLOOD TRANSFUSION Test 11/05/16 06:59 Bedside Glucose 159 Medications Current Medications Enoxaparin Sodium (Lovenox) 40 mg DAILY SC Last administered on 11/01/16 10:34 ; Admin Dose 40 MG; Start 11/01/16 at 09:00 Atorvastatin Calcium (Lipitor) 40 mg HS PO Last administered on 11/03/16 20:36 ; Admin Dose 40 MG; Start 10/31/16 at 21:00 Metoprolol Tartrate (Lopressor) 25 mg BID PO Last administered on 11/03/16 20: 37; Admin Dose 25 MG; Start 10/31/16 at 21:00 Aspirin (Aspirin) 81 mg DAILY PO Last administered on 11/03/16 08:29; Admin Dose 81 MG; Start 11/01/16 at 09:00 Famotidine (Pepcid) 20 mg DAILY PO Last administered on 11/03/16 17:31; Admin Dose 20 MG; Start 11/03/16 at 18:00 Acetaminophen (Tylenol Tab) 650 mg Q6H PRN PO PAIN AND OR ELEVATED TEMP; Start 11/03/16 at 17:00 Ondansetron HCl (Zofran Inj) 4 mg Q6H PRN IV NAUSEA AND/OR VOMITING; Start 01/09 at 17:00 Acetaminophen/ Hydrocodone Bitart 1 tab 1 tab Q6H PRN PO PAIN LEVEL 8-10; Start 11/03/16 at 17:00 Epinephrine 4 mg/ Dextrose 250 ml @ 0 mls/hr INTRA-OP IV ; Start 11/04/16 at 10: 00 Potassium Chloride 40 meq/ Calcium Chloride 1 gm/Dextrose/ Sodium Chloride 1, 030 ml @ 60 mls/hr [id number] IV Last administered on 11/04/16 21:44; Admin Dose 60 MLS/HR; Start 11/04/16 at 19:28 Sodium Chloride 1,000 ml @ 10 mls/hr Q24H IV Last administered on 11/04/16 19 :57; Admin Dose 10 MLS/HR; Start 11/04/16 at 19:57 Milrinone Lactate 100 ml @ 4.785 mls/ hr TITRATE IV Last administered on 00:26; Admin Dose 13.05 MLS/HR; Start 11/04/16 at 20:00 Propofol (Diprivan) 100 ml @ 1.74 mls/hr Q12H IV Last administered on 20:59; Admin Dose 1.74 MLS/HR; Start 11/04/16 at 21:00 Hydromorphone HCl (Dilaudid) 0.2 mg Q15M PRN IV PAIN LEVEL 1-5; Start 11/04/16 at 22:00 Hydromorphone HCl (Dilaudid) 0.4 mg Q15M PRN IV PAIN LEVEL 6-10 Last administered on 11/04/16 23:36; Admin Dose 0.4 MG; Start 11/04/16 at 22:00 Hydromorphone HCl (Dilaudid) 0.2 mg Q1H PRN IV PAIN LEVEL 1-5; Start 11/04/16 at 22:00 Hydromorphone HCl (Dilaudid) 0.4 mg Q1H PRN IV PAIN LEVEL 6-10; Start 11/04/16 at 22:00 Acetaminophen 650 mg 650 mg Q3H PRN [place] ELEVATED TEMPERATURE; Start 11/04/16 at 22:00 Phenylephrine HCl 80 mg/Dextrose 500 ml @ 37.5 mls/hr TITRATE IV Last administered on 11/05/16 05:09; Admin Dose 112.5 MLS/HR; Start 11/04/16 at 23: 00 Magnesium Sulfate/ Dextrose (Magnesium Sulfate 1 Gm/D5W) 100 ml @ 100 mls/hr PRN PRN IVPB PENDING LAB VALUE Last administered on 11/05/16 06:21; Admin Dose 100 MLS/HR; Start 11/04/16 at 23:30 Diagnostic Test (Pha) (Accu-Chek) 1 ea Q1H XX Last administered on 11/05/16 07 :00; Admin Dose 1 EA; Start 11/04/16 at 23:30 Dextrose (D50w Syringe) 25 ml Q15M PRN IV Till BS 80 mg/dL or above x2; Start 11/04/16 at 23:30 Dextrose 50 ml 50 ml Q15M PRN IV Till BS 80 mg/dL or above x2; Start 11/04/16 at 23:30 Albumin Human 250 ml @ 500 mls/hr PRN PRN IV CVP< 8, OR SBP<90 Last administered on 11/05/16t 00:55; Admin Dose 500 MLS/HR; Start 11/05/16 at 00:00 Assessment/Plan Chief Complaint/Hosp Course severe Obstructive coronary artery disease with left main involvement and Positive stress echo: s/p CABG Abnormal EKG hypoxemic resp failure; intubated now hx of HTN: now hypoensive and in shock and on pressors dsypnea anemia Recommendation/plan: cont post op care cont pressors for now but wean off if able to cont chest tubes for now vent support. wean off if able to. cont ICU care more than 37 min of critical care time was spent in management and treatment of this critically ill pt excluding any procedures THANK YOU BEBETO JAMES MD [facility] Problems: BEBETO JAMES MD Nov 05, 2016 07:20
[2016-11-05 08:16] LABS: AADO2 Arterial 177.2 mmHg (7.0-24.0); Arterial Base Excess -1.4 mmol/L (-3.0-3); Arterial COHb 0.2 % (0.0-3.0); Arterial Fraction of Oxyhgb 97.9 % (93.0-99.0); Arterial HCO3 24.1 mmol/L (22.0-26.0); Arterial MetHb 0.7 % (0.0-1.5); Arterial Total Hemglobin 9.8 g/dl (12.0-18.0); MODE VENT - AC
[2016-11-05 08:16] LABS: MODE VENT - AC; MetHgb Mixed Venous 0.6 %; Mixed Venous COHb 0.3 %; Mixed Venous Fraction OxyHgb 62.4 %; Mixed Venous Total Hemglobin 10.5 g/dl; Sample Type BLMV
[2016-11-05] MEDS: PROPOFOL 100 ML IV SCH ×2 (09:00→20:03)
[2016-11-05] MEDS: ENOXAPARIN 40 MG/0.4 ML SYG SC SCH (09:00)
[2016-11-05] MEDS: METOPROLOL 25 MG TAB PO SCH ×2 (09:00→22:17)
--- NOTE | 2016-11-05 09:13 | PN ---
Date/Time of Note Date/Time of Note DATE: 11/05/16 TIME: 09:04 Assessment/Plan VTE Prophylaxis VTE Prophylaxis Intervention: contraindicated VTE Contraindication Reason: thrombocytopenia Lines/Catheters IV Catheter Type (from Nrs): A Line Urinary Cath still in place: Yes Reason Cath still needed: urinary retention Assessment/Plan Chief Complaint/Hosp Course Assessment/Plan: 61 yo M with CAD admitted for CABG eval after LHC revealed sig L main disease, POD # 1 CABG PLAN: 1. CV: cards/CT surg following-status post cardiac bypass surgery yesterday postop day #1 (see details below) -follow-up post operation recommendations -Continue to monitor drainage from 3 chest tubes, continue insulin drip and pressor support as recommended by cardiothoracic surgery team, follow-up their recommendations and CV recommendations, wean down as tolerated -For possible extubation later today, follow pulmonary recommendations. -Continue bb -Monitor platelet level (120) and for any signs of bleeding DVT prophx -contraindicated because of some mild thrombocytopenia Critical care time spent on patient care today equals 45 minutes. Problems: Subjective 24 Hr Interval Summary Free Text/Dictation Patient had CABG performed yesterday, presently intubated, on 2 pressor support , insulin drip. Has [address] as well, no acute events overnight. Exam/Review of Systems Vital Signs Vitals Vital Signs Date Time Temp Pulse Resp B/P Pulse Ox O2 Delivery O2 Flow Rate FiO2 11/05/16 08:20 30 11/05/16 08:15 94 16 111/51 100 11/05/16 07:30 101.1 Intake and Output 11/04/16 11/04/16 11/05/16 15:00 23:00 07:00 Intake Total 100 ml 5359.235 ml 3157.38 ml Output Total 3023 ml 1251 ml Balance 100 ml 2336.235 ml 1906.38 ml Exam No acute distress, intubated, lying in bed S1, S2 heard resp nonlabored, intubated no gross abd distension no rashes no edema Results Result Diagram: 11/05/16 0400 11/05/16 0400 Results 24 hrs Laboratory Tests Test 11/04/16 19:49 11/04/16 20:00 11/04/16 23:04 11/05/16 00:15 Bedside Glucose 115 135 White Blood Count 11.9 #H Red Blood Count 3.04 #L Hemoglobin 8.7 #L Hematocrit 26.8 #L Mean Corpuscular Volume 88.2 Mean Corpuscular Hemoglobin 28.6 L Mean Corpuscular Hemoglobin Concent 32.5 Red Cell Distribution Width 13.3 Platelet Count 89 #L Mean Platelet Volume 10.0 Neutrophils % 68.7 Lymphocytes % 20.8 Monocytes % 8.7 Eosinophils % 0.9 Basophils % 0.2 Nucleated Red Blood Cells % 0.0 Neutrophils # (Manual) 8.2 H Lymphocytes # 2.5 Monocytes # 1.0 H Eosinophils # 0.1 Basophils # 0.0 Nucleated Red Blood Cells # 0.0 Prothrombin Time 13.5 Prothrombin Time Ratio 1.1 INR International Normalized Ratio 1.03 Activated Partial Thromboplast Time 34.0 Sodium Level 143 Potassium Level 3.7 Chloride Level 113 H Carbon Dioxide Level 26 Anion Gap 8 Blood Urea Nitrogen 16 Creatinine 0.99 Glucose Level 105 Calcium Level 8.1 L Phosphorus Level 5.2 H Magnesium Level 2.0 Lactic Acid Level 2.5 *H Test 11/05/16 00:16 11/05/16 01:04 11/05/16 03:08 11/05/16 04:00 Bedside Glucose 164 176 166 White Blood Count 8.1 # Red Blood Count 3.16 L Hemoglobin 9.3 L Hematocrit 27.6 L Mean Corpuscular Volume 87.3 Mean Corpuscular Hemoglobin 29.4 Mean Corpuscular Hemoglobin Concent 33.7 Red Cell Distribution Width 14.1 Platelet Count 120 #L Mean Platelet Volume 9.3 Neutrophils % 86.2 H Lymphocytes % 4.8 L Monocytes % 8.4 Eosinophils % 0.0 Basophils % 0.2 Nucleated Red Blood Cells % 0.0 Neutrophils # (Manual) 6.9 Lymphocytes # 0.4 L Monocytes # 0.7 Eosinophils # 0.0 Basophils # 0.0 Nucleated Red Blood Cells # 0.0 Prothrombin Time 13.6 Prothrombin Time Ratio 1.1 INR International Normalized Ratio 1.04 Activated Partial Thromboplast Time 37.7 H Sodium Level 144 Potassium Level 4.7 Chloride Level 113 H Carbon Dioxide Level 24 Anion Gap 12 Blood Urea Nitrogen 15 Creatinine 1.07 Glucose Level 173 Lactic Acid Level 4.1 *H Calcium Level 8.7 Magnesium Level 1.9 Total Bilirubin 1.0 Direct Bilirubin 0.00 Indirect Bilirubin 1.0 Aspartate Amino Transf (AST/SGOT) 91 #H Alanine Aminotransferase (ALT/SGPT) 39 Alkaline Phosphatase 27 L Total Protein 5.5 #L Albumin 3.3 # Globulin 2.20 Albumin/Globulin Ratio 1.50 Test 11/05/16 05:00 11/05/16 05:33 11/05/16 06:59 11/05/16 08:07 Blood Gas Specimen Source Blood arterial Arterial Blood Date Drawn 11/05/2016 5:10:23 AM Arterial Blood pH (Temp corrected) 7.356 Arterial Blood pCO2 (Temp correct) 43.8 Arterial Blood pO2 (Temp corrected) 157.5 H Arterial Blood HCO3 24.0 Arterial Blood Base Excess -1.6 Arterial Blood Oxygen Saturation 98.3 H Olvin Test N/A Arterial Blood Gas Puncture Site A-Line Arterial Blood Carboxyhemoglobin 0.2 Arterial Blood Methemoglobin 0.4 Blood Gas A-a O2 Differential 77.3 H Oxyhemoglobin Percent 97.7 Total Hemoglobin 10.1 L Blood Gas Temperature 37.0 Blood Gas Respiration Rate 14.0 Blood Gas Actual Respiration Rate 14 Blood Gas Modality VENT - AC FiO2 40.0 Blood Gas Tidal Volume 550.0 Blood Gas Low PEEP Setting 5.0 Blood Gas Inspiratory Pressure 19.0 Blood Gas Notified Whom MG Blood Gas Notified Time 11/05/2016 5:26:05 AM Bedside Glucose 161 159 138 Lab Scanned Report BLOOD TRANSFUSION Test 11/05/16 08:11 11/05/16 08:13 Blood Gas Specimen Source Blood arterial BLMV Arterial Blood Date Drawn 11/04/2016 8:12:00 PM 11/04/2016 9:18:00 PM Arterial Blood pH (Temp corrected) 7.356 Arterial Blood pCO2 (Temp correct) 44.0 Arterial Blood pO2 (Temp corrected) 274.6 H Arterial Blood HCO3 24.1 Arterial Blood Base Excess -1.4 Arterial Blood Oxygen Saturation 98.8 H Olvin Test N/A N/A Arterial Blood Gas Puncture Site A-Line PUL ART LINE Arterial Blood Carboxyhemoglobin 0.2 Arterial Blood Methemoglobin 0.7 Blood Gas A-a O2 Differential 177.2 H 193.3 Oxyhemoglobin Percent 97.9 Total Hemoglobin 9.8 L Blood Gas Temperature 37.0 37.0 Blood Gas Respiration Rate 14.0 14.0 Blood Gas Actual Respiration Rate 24 22 Blood Gas Modality VENT - AC VENT - AC FiO2 70.0 40.0 Blood Gas Tidal Volume 550.0 550.0 Blood Gas Low PEEP Setting 5.0 5.0 Blood Gas Inspiratory Pressure 28.0 26.0 Blood Gas Notified Whom MG RTR Blood Gas Notified Time 11/04/2016 8:22:00 PM 11/04/2016 9:28:00 PM Mixed Venous Blood pH 7.318 L Mixed Venous Blood PCO2 50.8 Mixed Venous Blood PO2 33.5 Mixed Venous Blood HCO3 25.5 Mixed Venous Blood Base Excess -1.0 Mixed Venous Blood O2 Saturation 63.0 L Mixed Venous Blood Total Hemoglobin 10.5 Mixed Venous Blood Oxyhemoglobin 62.4 Mixed Venous Bld Carboxyhemoglobin 0.3 Mixed Venous Blood Methemoglobin 0.6 Medications Medications Current Medications Enoxaparin Sodium (Lovenox) 40 mg DAILY SC Last administered on 11/01/16 10:34 ; Admin Dose 40 MG; Start 11/01/16 at 09:00 Atorvastatin Calcium (Lipitor) 40 mg HS PO Last administered on 11/03/16 20:36 ; Admin Dose 40 MG; Start 10/31/16 at 21:00 Metoprolol Tartrate (Lopressor) 25 mg BID PO Last administered on 11/03/16 20: 37; Admin Dose 25 MG; Start 10/31/16 at 21:00 Aspirin (Aspirin) 81 mg DAILY PO Last administered on 11/03/16 08:29; Admin Dose 81 MG; Start 11/01/16 at 09:00 Famotidine (Pepcid) 20 mg DAILY PO Last administered on 11/03/16 17:31; Admin Dose 20 MG; Start 11/03/16 at 18:00 Acetaminophen (Tylenol Tab) 650 mg Q6H PRN PO PAIN AND OR ELEVATED TEMP; Start 11/03/16 at 17:00 Ondansetron HCl (Zofran Inj) 4 mg Q6H PRN IV NAUSEA AND/OR VOMITING; Start 01/09 at 17:00 Acetaminophen/ Hydrocodone Bitart 1 tab 1 tab Q6H PRN PO PAIN LEVEL 8-10; Start 11/03/16 at 17:00 Epinephrine 4 mg/ Dextrose 250 ml @ 0 mls/hr INTRA-OP IV ; Start 11/04/16 at 10: 00 Potassium Chloride 40 meq/ Calcium Chloride 1 gm/Dextrose/ Sodium Chloride 1, 030 ml @ 60 mls/hr [id number] IV Last administered on 11/04/16 21:44; Admin Dose 60 MLS/HR; Start 11/04/16 at 19:28 Sodium Chloride 1,000 ml @ 10 mls/hr Q24H IV Last administered on 11/04/16 19 :57; Admin Dose 10 MLS/HR; Start 11/04/16 at 19:57 Milrinone Lactate 100 ml @ 4.785 mls/ hr TITRATE IV Last administered on 00:26; Admin Dose 13.05 MLS/HR; Start 11/04/16 at 20:00 Propofol (Diprivan) 100 ml @ 1.74 mls/hr Q12H IV Last administered on 20:59; Admin Dose 1.74 MLS/HR; Start 11/04/16 at 21:00 Hydromorphone HCl (Dilaudid) 0.2 mg Q15M PRN IV PAIN LEVEL 1-5; Start 11/04/16 at 22:00 Hydromorphone HCl (Dilaudid) 0.4 mg Q15M PRN IV PAIN LEVEL 6-10 Last administered on 11/04/16 23:36; Admin Dose 0.4 MG; Start 11/04/16 at 22:00 Hydromorphone HCl (Dilaudid) 0.2 mg Q1H PRN IV PAIN LEVEL 1-5; Start 11/04/16 at 22:00 Hydromorphone HCl (Dilaudid) 0.4 mg Q1H PRN IV PAIN LEVEL 6-10; Start 11/04/16 at 22:00 Acetaminophen 650 mg 650 mg Q3H PRN [place] ELEVATED TEMPERATURE; Start 11/04/16 at 22:00 Phenylephrine HCl 80 mg/Dextrose 500 ml @ 37.5 mls/hr TITRATE IV Last administered on 11/05/16 05:09; Admin Dose 112.5 MLS/HR; Start 11/04/16 at 23: 00 Magnesium Sulfate/ Dextrose (Magnesium Sulfate 1 Gm/D5W) 100 ml @ 100 mls/hr PRN PRN IVPB PENDING LAB VALUE Last administered on 11/05/16 06:21; Admin Dose 100 MLS/HR; Start 11/04/16 at 23:30 Diagnostic Test (Pha) (Accu-Chek) 1 ea Q1H XX Last administered on 11/05/16 07 :00; Admin Dose 1 EA; Start 11/04/16 at 23:30 Dextrose (D50w Syringe) 25 ml Q15M PRN IV Till BS 80 mg/dL or above x2; Start 11/04/16 at 23:30 Dextrose 50 ml 50 ml Q15M PRN IV Till BS 80 mg/dL or above x2; Start 11/04/16 at 23:30 Albumin Human 250 ml @ 500 mls/hr PRN PRN IV CVP< 8, OR SBP<90 Last administered on 11/05/16 00:55; Admin Dose 500 MLS/HR; Start 11/05/16 at 00:00 Procedures Procedures CABG (11/04/16): Operation Performed 1 ALLISON to LAD 2 saphenous vein graft to right coronary artery/PDA 3 saphenous vein graft to the diagonal branch of the LAD 4 after spending graft to the obtuse marginal branch of the circumflex 5 the scopic saphenous vein harvest from the left lower extremity 6 thymectomy 7 right coronary endarterectomy 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
[2016-11-05 09:40] LABS: AADO2 Arterial 48.5 mmHg (7.0-24.0); Arterial Base Excess -0.7 mmol/L (-3.0-3); Arterial COHb 0.2 % (0.0-3.0); Arterial Fraction of Oxyhgb 97.2 % (93.0-99.0); Arterial HCO3 23.8 mmol/L (22.0-26.0); Arterial MetHb 0.3 % (0.0-1.5); Arterial Total Hemglobin 10.2 g/dl (12.0-18.0); Blood Gas PS 10; MODE VENT - CPAP
--- NOTE | 2016-11-05 09:54 | CONS ---
Date/Time of Note Date/Time of Note DATE: 11/05/16 TIME: 09:49 Assessment/Plan Assessment/Plan Additional Assessment/Plan Chest x-ray was reviewed from last evening which is totally clear. Patient currently on CPAP pressure support 10, 30% FiO2. PEEP of 5. Patient currently on phenylephrine drip at 18 mics per minute, dopamine at 3 mics per kilogram per minute. Has been off sedation. Assessment recommendations; 1. Patient admitted for elective CABG after undergoing coronary angiogram revealing left main disease. 2. Postop bleed from chest tube with interval improvement, without any further bleed currently. 3. Mild hypotension. 4. History of hypertension. Patient's ABG is quite adequate and patient is meeting criteria for extubation. We will go ahead and extubate the patient. Meanwhile continue current supportive care. Consultation Date/Type/Reason Admit Date/Time Oct 31, 2016 at 11:41 Date of Consultation: Nov 05, 2016 Type of Consultation: Pulmonary/critical care Reason for Consultation Pulmonary consultation requested for evaluation of postop ventilator management. Patient underwent CABG surgery last evening. History of presenting any; patient is a 61-year-old male who was admitted for elective CABG. Patient was having chest pain underwent coronary angiogram which revealed left main disease which was not amenable to angioplasty. CABG was recommended which was performed last evening without incident. By the time I saw the patient the patient already is on CPAP mode and exhibiting good weaning parameters and he is completely awake and alert. He denies any shortness of breath, chest pain. Past medical history; 1. Patient with history of hypertension. Medications; reviewed. Allergies; aspirin. Social history, family histories are not available. Occupation history; not available. Review of systems; limited review of systems could be obtained as the patient is orally intubated. Patient denies any chest pain, any shortness of breath, any abdominal pain, any nausea or vomiting. General exam; elderly male, orally intubated, awake and alert. Currently in no distress. Gastrointestinal: no complaints Genitourinary: no complaints Musculoskeletal: no complaints Skin: no complaints Psychological: nl mood/affect, no complaints Social History Smoking Status: Never smoker Exam/Review of Systems Vital Signs Vitals Vital Signs Date Time Temp Pulse Resp B/P Pulse Ox O2 Delivery O2 Flow Rate FiO2 11/05/16 09:30 100.8 94 26 111/50 100 11/05/16 08:20 30 Intake and Output 11/04/16 11/04/16 11/05/16 15:00 23:00 07:00 Intake Total 100 ml 5359.235 ml 3157.38 ml Output Total 3023 ml 1251 ml Balance 100 ml 2336.235 ml 1906.38 ml Exam HEENT exam; supple neck, no JVD. No lymphadenopathy. Midline trachea. No thyromegaly. Is edentulous. Orally intubated. Pupils are equal and reactive to light. Chest exam; dressing applied over sternum. Chest tubes are in place. No active bleeding seen. Lungs are clear to auscultation bilaterally. S1-S2 audible, no murmurs. Regular rhythm. Abdomen exam; soft, no organomegaly. Nontender. Nondistended. Bowel sounds audible. Extremity exam; dressing applied over left lower extremity. Pulses 1+ bilaterally. No clubbing. No edema. [employer] exam; no focal deficit. Results Result Diagram: 11/05/16 0400 11/05/16 0400 Results 24 hrs Laboratory Tests Test 11/04/16 19:49 11/04/16 20:00 11/04/16 23:04 11/05/16 00:15 Bedside Glucose 115 135 White Blood Count 11.9 #H Red Blood Count 3.04 #L Hemoglobin 8.7 #L Hematocrit 26.8 #L Mean Corpuscular Volume 88.2 Mean Corpuscular Hemoglobin 28.6 L Mean Corpuscular Hemoglobin Concent 32.5 Red Cell Distribution Width 13.3 Platelet Count 89 #L Mean Platelet Volume 10.0 Neutrophils % 68.7 Lymphocytes % 20.8 Monocytes % 8.7 Eosinophils % 0.9 Basophils % 0.2 Nucleated Red Blood Cells % 0.0 Neutrophils # (Manual) 8.2 H Lymphocytes # 2.5 Monocytes # 1.0 H Eosinophils # 0.1 Basophils # 0.0 Nucleated Red Blood Cells # 0.0 Prothrombin Time 13.5 Prothrombin Time Ratio 1.1 INR International Normalized Ratio 1.03 Activated Partial Thromboplast Time 34.0 Sodium Level 143 Potassium Level 3.7 Chloride Level 113 H Carbon Dioxide Level 26 Anion Gap 8 Blood Urea Nitrogen 16 Creatinine 0.99 Glucose Level 105 Calcium Level 8.1 L Phosphorus Level 5.2 H Magnesium Level 2.0 Lactic Acid Level 2.5 *H Test 11/05/16 00:16 11/05/16 01:04 11/05/16 03:08 11/05/16 04:00 Bedside Glucose 164 176 166 White Blood Count 8.1 # Red Blood Count 3.16 L Hemoglobin 9.3 L Hematocrit 27.6 L Mean Corpuscular Volume 87.3 Mean Corpuscular Hemoglobin 29.4 Mean Corpuscular Hemoglobin Concent 33.7 Red Cell Distribution Width 14.1 Platelet Count 120 #L Mean Platelet Volume 9.3 Neutrophils % 86.2 H Lymphocytes % 4.8 L Monocytes % 8.4 Eosinophils % 0.0 Basophils % 0.2 Nucleated Red Blood Cells % 0.0 Neutrophils # (Manual) 6.9 Lymphocytes # 0.4 L Monocytes # 0.7 Eosinophils # 0.0 Basophils # 0.0 Nucleated Red Blood Cells # 0.0 Prothrombin Time 13.6 Prothrombin Time Ratio 1.1 INR International Normalized Ratio 1.04 Activated Partial Thromboplast Time 37.7 H Sodium Level 144 Potassium Level 4.7 Chloride Level 113 H Carbon Dioxide Level 24 Anion Gap 12 Blood Urea Nitrogen 15 Creatinine 1.07 Glucose Level 173 Lactic Acid Level 4.1 *H Calcium Level 8.7 Magnesium Level 1.9 Total Bilirubin 1.0 Direct Bilirubin 0.00 Indirect Bilirubin 1.0 Aspartate Amino Transf (AST/SGOT) 91 #H Alanine Aminotransferase (ALT/SGPT) 39 Alkaline Phosphatase 27 L Total Protein 5.5 #L Albumin 3.3 # Globulin 2.20 Albumin/Globulin Ratio 1.50 Test 11/05/16 05:00 11/05/16 05:33 11/05/16 06:59 11/05/16 08:07 Blood Gas Specimen Source Blood arterial Arterial Blood Date Drawn 11/05/2016 5:10:23 AM Arterial Blood pH (Temp corrected) 7.356 Arterial Blood pCO2 (Temp correct) 43.8 Arterial Blood pO2 (Temp corrected) 157.5 H Arterial Blood HCO3 24.0 Arterial Blood Base Excess -1.6 Arterial Blood Oxygen Saturation 98.3 H Olvin Test N/A Arterial Blood Gas Puncture Site A-Line Arterial Blood Carboxyhemoglobin 0.2 Arterial Blood Methemoglobin 0.4 Blood Gas A-a O2 Differential 77.3 H Oxyhemoglobin Percent 97.7 Total Hemoglobin 10.1 L Blood Gas Temperature 37.0 Blood Gas Respiration Rate 14.0 Blood Gas Actual Respiration Rate 14 Blood Gas Modality VENT - AC FiO2 40.0 Blood Gas Tidal Volume 550.0 Blood Gas Low PEEP Setting 5.0 Blood Gas Inspiratory Pressure 19.0 Blood Gas Notified Whom MG Blood Gas Notified Time 11/05/2016 5:26:05 AM Bedside Glucose 161 159 138 Lab Scanned Report BLOOD TRANSFUSION Test 11/05/16 08:11 11/05/16 08:13 11/05/16 09:20 Blood Gas Specimen Source Blood arterial BLMV Blood arterial Arterial Blood Date Drawn 11/04/2016 8:12:00 PM 11/04/2016 9:18:00 PM 11/05/2016 9:25:02 AM Arterial Blood pH (Temp corrected) 7.356 7.411 Arterial Blood pCO2 (Temp correct) 44.0 38.3 Arterial Blood pO2 (Temp corrected) 274.6 H 120.4 H Arterial Blood HCO3 24.1 23.8 Arterial Blood Base Excess -1.4 -0.7 Arterial Blood Oxygen Saturation 98.8 H 97.7 Olvin Test N/A N/A N/A Arterial Blood Gas Puncture Site A-Line PUL ART LINE A-Line Arterial Blood Carboxyhemoglobin 0.2 0.2 Arterial Blood Methemoglobin 0.7 0.3 Blood Gas A-a O2 Differential 177.2 H 193.3 48.5 H Oxyhemoglobin Percent 97.9 97.2 Total Hemoglobin 9.8 L 10.2 L Blood Gas Temperature 37.0 37.0 37.0 Blood Gas Respiration Rate 14.0 14.0 Blood Gas Actual Respiration Rate 24 22 22 Blood Gas Modality VENT - AC VENT - AC VENT - CPAP FiO2 70.0 40.0 30.0 Blood Gas Tidal Volume 550.0 550.0 Blood Gas Low PEEP Setting 5.0 5.0 5.0 Blood Gas Inspiratory Pressure 28.0 26.0 Blood Gas Notified Whom MG RTR JLD Blood Gas Notified Time 11/04/2016 8:22:00 PM 11/04/2016 9:28:00 PM 11/05/2016 9:40:55 AM Mixed Venous Blood pH 7.318 L Mixed Venous Blood PCO2 50.8 Mixed Venous Blood PO2 33.5 Mixed Venous Blood HCO3 25.5 Mixed Venous Blood Base Excess -1.0 Mixed Venous Blood O2 Saturation 63.0 L Mixed Venous Blood Total Hemoglobin 10.5 Mixed Venous Blood Oxyhemoglobin 62.4 Mixed Venous Bld Carboxyhemoglobin 0.3 Mixed Venous Blood Methemoglobin 0.6 Blood Gas Pressure Support 10 Medications Medications Current Medications Enoxaparin Sodium (Lovenox) 40 mg DAILY SC Last administered on 11/01/16 10:34 ; Admin Dose 40 MG; Start 11/01/16 at 09:00 Atorvastatin Calcium (Lipitor) 40 mg HS PO Last administered on 11/03/16 20:36 ; Admin Dose 40 MG; Start 10/31/16 at 21:00 Metoprolol Tartrate (Lopressor) 25 mg BID PO Last administered on 11/03/16 20: 37; Admin Dose 25 MG; Start 10/31/16 at 21:00 Aspirin (Aspirin) 81 mg DAILY PO Last administered on 11/03/16 08:29; Admin Dose 81 MG; Start 11/01/16 at 09:00 Famotidine (Pepcid) 20 mg DAILY PO Last administered on 11/03/16 17:31; Admin Dose 20 MG; Start 11/03/16 at 18:00 Acetaminophen (Tylenol Tab) 650 mg Q6H PRN PO PAIN AND OR ELEVATED TEMP; Start 11/03/16 at 17:00 Ondansetron HCl (Zofran Inj) 4 mg Q6H PRN IV NAUSEA AND/OR VOMITING; Start 01/09 at 17:00 Acetaminophen/ Hydrocodone Bitart 1 tab 1 tab Q6H PRN PO PAIN LEVEL 8-10; Start 11/03/16 at 17:00 Epinephrine 4 mg/ Dextrose 250 ml @ 0 mls/hr INTRA-OP IV ; Start 11/04/16 at 10: 00 Potassium Chloride 40 meq/ Calcium Chloride 1 gm/Dextrose/ Sodium Chloride 1, 030 ml @ 60 mls/hr [id number] IV Last administered on 11/04/16 21:44; Admin Dose 60 MLS/HR; Start 11/04/16 at 19:28 Sodium Chloride 1,000 ml @ 10 mls/hr Q24H IV Last administered on 11/04/16 19 :57; Admin Dose 10 MLS/HR; Start 11/04/16 at 19:57 Milrinone Lactate 100 ml @ 4.785 mls/ hr TITRATE IV Last administered on 00:26; Admin Dose 13.05 MLS/HR; Start 11/04/16 at 20:00 Propofol (Diprivan) 100 ml @ 1.74 mls/hr Q12H IV Last administered on 20:59; Admin Dose 1.74 MLS/HR; Start 11/04/16 at 21:00 Hydromorphone HCl (Dilaudid) 0.2 mg Q15M PRN IV PAIN LEVEL 1-5; Start 11/04/16 at 22:00 Hydromorphone HCl (Dilaudid) 0.4 mg Q15M PRN IV PAIN LEVEL 6-10 Last administered on 11/04/16 23:36; Admin Dose 0.4 MG; Start 11/04/16 at 22:00 Hydromorphone HCl (Dilaudid) 0.2 mg Q1H PRN IV PAIN LEVEL 1-5; Start 11/04/16 at 22:00 Hydromorphone HCl (Dilaudid) 0.4 mg Q1H PRN IV PAIN LEVEL 6-10; Start 11/04/16 at 22:00 Acetaminophen 650 mg 650 mg Q3H PRN [place] ELEVATED TEMPERATURE; Start 11/04/16 at 22:00 Phenylephrine HCl 80 mg/Dextrose 500 ml @ 37.5 mls/hr TITRATE IV Last administered on 11/05/16 05:09; Admin Dose 112.5 MLS/HR; Start 11/04/16 at 23: 00 Magnesium Sulfate/ Dextrose (Magnesium Sulfate 1 Gm/D5W) 100 ml @ 100 mls/hr PRN PRN IVPB PENDING LAB VALUE Last administered on 11/05/16 06:21; Admin Dose 100 MLS/HR; Start 11/04/16 at 23:30 Diagnostic Test (Pha) (Accu-Chek) 1 ea Q1H XX Last administered on 11/05/16 07 :00; Admin Dose 1 EA; Start 11/04/16 at 23:30 Dextrose (D50w Syringe) 25 ml Q15M PRN IV Till BS 80 mg/dL or above x2; Start 11/04/16 at 23:30 Dextrose 50 ml 50 ml Q15M PRN IV Till BS 80 mg/dL or above x2; Start 11/04/16 at 23:30 Albumin Human 250 ml @ 500 mls/hr PRN PRN IV CVP< 8, OR SBP<90 Last administered on 11/05/16 00:55; Admin Dose 500 MLS/HR; Start 11/05/16 at 00:00 KIMBERLY ARELLANO Nov 05, 2016 09:54
--- NOTE | 2016-11-05 10:11 | RADRPT ---
PROCEDURE: XR Chest. CLINICAL INDICATION: Status post open heart surgery. TECHNIQUE: A single AP view of the chest was obtained. COMPARISON: Chest x-ray dated 11/04/2016 FINDINGS: There are postoperative changes with sternotomy wires. The endotracheal tube tip is approximately 3 .7 cm above the selena. There is a [place] catheter from a right internal jugular approach with ti p in the region of the right ventricular outflow tract. There is a right chest tube and mediastinal drains in place. No focal airspace opacity, pleural effusion or pneumothorax identified. There is mild bibasilar atel ectasis. The cardiomediastinal silhouette is mildly enlarged. Calcifications are seen within the a ortic arch. The osseous structures are unremarkable. IMPRESSION: 1. Mild bibasilar atelectasis. Overall, no significant interval change. 2. Expected post cardiac surgery changes. 3. Mild cardiomegaly and aortic atherosclerosis. 4. Tubes and lines, as described above. RPTAT: .Violeta Ruth MD, MD Date Time Electronically viewed and signed by .Violeta Ruth MD, on 11/05/2016 10:11 .G/
--- NOTE | 2016-11-05 11:47 | PN ---
Date/Time of Note Date/Time of Note DATE: 11/05/16 TIME: 11:45 Assessment/Plan VTE Prophylaxis VTE Prophylaxis Intervention: other Lines/Catheters IV Catheter Type (from Nrs): Central line still needed: No Urinary Cath still in place: No Assessment/Plan Chief Complaint/Hosp Course SP CABG Extubated will DC Lines will ambulate pulm toilet Problems: Subjective 24 Hr Interval Summary Gastrointestinal: no complaints Genitourinary: no complaints Musculoskeletal: no complaints Skin: no complaints Neurologic: no complaints Exam/Review of Systems Vital Signs Vitals Vital Signs Date Time Temp Pulse Resp B/P Pulse Ox O2 Delivery O2 Flow Rate FiO2 11/05/16 09:30 100.8 94 26 111/50 100 11/05/16 08:20 30 Intake and Output 11/04/16 11/04/16 11/05/16 15:00 23:00 07:00 Intake Total 100 ml 5359.235 ml 3157.38 ml Output Total 3023 ml 1251 ml Balance 100 ml 2336.235 ml 1906.38 ml Exam ENMT: nl external ears & nose, nl lips & teeth, nl nasal mucosa & septum Neck: non-tender, supple Respiratory: clear to auscultation, normal air movement Cardiovascular: nl pulses, regular rate and rhythm Results Result Diagram: 11/05/16 0400 11/05/16 0400 Results 24 hrs Laboratory Tests Test 11/04/16 19:49 11/04/16 20:00 11/04/16 23:04 11/05/16 00:15 Bedside Glucose 115 135 White Blood Count 11.9 #H Red Blood Count 3.04 #L Hemoglobin 8.7 #L Hematocrit 26.8 #L Mean Corpuscular Volume 88.2 Mean Corpuscular Hemoglobin 28.6 L Mean Corpuscular Hemoglobin Concent 32.5 Red Cell Distribution Width 13.3 Platelet Count 89 #L Mean Platelet Volume 10.0 Neutrophils % 68.7 Lymphocytes % 20.8 Monocytes % 8.7 Eosinophils % 0.9 Basophils % 0.2 Nucleated Red Blood Cells % 0.0 Neutrophils # (Manual) 8.2 H Lymphocytes # 2.5 Monocytes # 1.0 H Eosinophils # 0.1 Basophils # 0.0 Nucleated Red Blood Cells # 0.0 Prothrombin Time 13.5 Prothrombin Time Ratio 1.1 INR International Normalized Ratio 1.03 Activated Partial Thromboplast Time 34.0 Sodium Level 143 Potassium Level 3.7 Chloride Level 113 H Carbon Dioxide Level 26 Anion Gap 8 Blood Urea Nitrogen 16 Creatinine 0.99 Glucose Level 105 Calcium Level 8.1 L Phosphorus Level 5.2 H Magnesium Level 2.0 Lactic Acid Level 2.5 *H Test 11/05/16 00:16 11/05/16 01:04 11/05/16 03:08 11/05/16 04:00 Bedside Glucose 164 176 166 White Blood Count 8.1 # Red Blood Count 3.16 L Hemoglobin 9.3 L Hematocrit 27.6 L Mean Corpuscular Volume 87.3 Mean Corpuscular Hemoglobin 29.4 Mean Corpuscular Hemoglobin Concent 33.7 Red Cell Distribution Width 14.1 Platelet Count 120 #L Mean Platelet Volume 9.3 Neutrophils % 86.2 H Lymphocytes % 4.8 L Monocytes % 8.4 Eosinophils % 0.0 Basophils % 0.2 Nucleated Red Blood Cells % 0.0 Neutrophils # (Manual) 6.9 Lymphocytes # 0.4 L Monocytes # 0.7 Eosinophils # 0.0 Basophils # 0.0 Nucleated Red Blood Cells # 0.0 Prothrombin Time 13.6 Prothrombin Time Ratio 1.1 INR International Normalized Ratio 1.04 Activated Partial Thromboplast Time 37.7 H Sodium Level 144 Potassium Level 4.7 Chloride Level 113 H Carbon Dioxide Level 24 Anion Gap 12 Blood Urea Nitrogen 15 Creatinine 1.07 Glucose Level 173 Lactic Acid Level 4.1 *H Calcium Level 8.7 Magnesium Level 1.9 Total Bilirubin 1.0 Direct Bilirubin 0.00 Indirect Bilirubin 1.0 Aspartate Amino Transf (AST/SGOT) 91 #H Alanine Aminotransferase (ALT/SGPT) 39 Alkaline Phosphatase 27 L Total Protein 5.5 #L Albumin 3.3 # Globulin 2.20 Albumin/Globulin Ratio 1.50 Test 11/05/16 05:00 11/05/16 05:33 11/05/16 06:59 11/05/16 08:07 Blood Gas Specimen Source Blood arterial Arterial Blood Date Drawn 11/05/2016 5:10:23 AM Arterial Blood pH (Temp corrected) 7.356 Arterial Blood pCO2 (Temp correct) 43.8 Arterial Blood pO2 (Temp corrected) 157.5 H Arterial Blood HCO3 24.0 Arterial Blood Base Excess -1.6 Arterial Blood Oxygen Saturation 98.3 H Olvin Test N/A Arterial Blood Gas Puncture Site A-Line Arterial Blood Carboxyhemoglobin 0.2 Arterial Blood Methemoglobin 0.4 Blood Gas A-a O2 Differential 77.3 H Oxyhemoglobin Percent 97.7 Total Hemoglobin 10.1 L Blood Gas Temperature 37.0 Blood Gas Respiration Rate 14.0 Blood Gas Actual Respiration Rate 14 Blood Gas Modality VENT - AC FiO2 40.0 Blood Gas Tidal Volume 550.0 Blood Gas Low PEEP Setting 5.0 Blood Gas Inspiratory Pressure 19.0 Blood Gas Notified Whom MG Blood Gas Notified Time 11/05/2016 5:26:05 AM Bedside Glucose 161 159 138 Lab Scanned Report BLOOD TRANSFUSION Test 11/05/16 08:11 11/05/16 08:13 11/05/16 09:20 11/05/16 10:09 Blood Gas Specimen Source Blood arterial BLMV Blood arterial Arterial Blood Date Drawn 11/04/2016 8:12:00 PM 11/04/2016 9:18:00 PM 11/05/2016 9:25:02 AM Arterial Blood pH (Temp corrected) 7.356 7.411 Arterial Blood pCO2 (Temp correct) 44.0 38.3 Arterial Blood pO2 (Temp corrected) 274.6 H 120.4 H Arterial Blood HCO3 24.1 23.8 Arterial Blood Base Excess -1.4 -0.7 Arterial Blood Oxygen Saturation 98.8 H 97.7 Olvin Test N/A N/A N/A Arterial Blood Gas Puncture Site A-Line PUL ART LINE A-Line Arterial Blood Carboxyhemoglobin 0.2 0.2 Arterial Blood Methemoglobin 0.7 0.3 Blood Gas A-a O2 Differential 177.2 H 193.3 48.5 H Oxyhemoglobin Percent 97.9 97.2 Total Hemoglobin 9.8 L 10.2 L Blood Gas Temperature 37.0 37.0 37.0 Blood Gas Respiration Rate 14.0 14.0 Blood Gas Actual Respiration Rate 24 22 22 Blood Gas Modality VENT - AC VENT - AC VENT - CPAP FiO2 70.0 40.0 30.0 Blood Gas Tidal Volume 550.0 550.0 Blood Gas Low PEEP Setting 5.0 5.0 5.0 Blood Gas Inspiratory Pressure 28.0 26.0 Blood Gas Notified Whom MG RTR JLD Blood Gas Notified Time 11/04/2016 8:22:00 PM 11/04/2016 9:28:00 PM 11/05/2016 9:40:55 AM Mixed Venous Blood pH 7.318 L Mixed Venous Blood PCO2 50.8 Mixed Venous Blood PO2 33.5 Mixed Venous Blood HCO3 25.5 Mixed Venous Blood Base Excess -1.0 Mixed Venous Blood O2 Saturation 63.0 L Mixed Venous Blood Total Hemoglobin 10.5 Mixed Venous Blood Oxyhemoglobin 62.4 Mixed Venous Bld Carboxyhemoglobin 0.3 Mixed Venous Blood Methemoglobin 0.6 Blood Gas Pressure Support 10 Bedside Glucose 106 Test 11/05/16 11:11 Bedside Glucose 105 Medications Medications Current Medications Enoxaparin Sodium (Lovenox) 40 mg DAILY SC Last administered on 11/01/16 10:34 ; Admin Dose 40 MG; Start 11/01/16 at 09:00 Atorvastatin Calcium (Lipitor) 40 mg HS PO Last administered on 11/03/16 20:36 ; Admin Dose 40 MG; Start 10/31/16 at 21:00 Metoprolol Tartrate (Lopressor) 25 mg BID PO Last administered on 11/03/16 20: 37; Admin Dose 25 MG; Start 10/31/16 at 21:00 Aspirin (Aspirin) 81 mg DAILY PO Last administered on 11/03/16 08:29; Admin Dose 81 MG; Start 11/01/16 at 09:00 Famotidine (Pepcid) 20 mg DAILY PO Last administered on 11/03/16 17:31; Admin Dose 20 MG; Start 11/03/16 at 18:00 Acetaminophen (Tylenol Tab) 650 mg Q6H PRN PO PAIN AND OR ELEVATED TEMP; Start 11/03/16 at 17:00 Ondansetron HCl (Zofran Inj) 4 mg Q6H PRN IV NAUSEA AND/OR VOMITING; Start 01/09 at 17:00 Acetaminophen/ Hydrocodone Bitart 1 tab 1 tab Q6H PRN PO PAIN LEVEL 8-10; Start 11/03/16 at 17:00 Epinephrine 4 mg/ Dextrose 250 ml @ 0 mls/hr INTRA-OP IV ; Start 11/04/16 at 10: 00 Potassium Chloride 40 meq/ Calcium Chloride 1 gm/Dextrose/ Sodium Chloride 1, 030 ml @ 60 mls/hr [id number] IV Last administered on 11/04/16 21:44; Admin Dose 60 MLS/HR; Start 11/04/16 at 19:28 Sodium Chloride 1,000 ml @ 10 mls/hr Q24H IV Last administered on 11/04/16 19 :57; Admin Dose 10 MLS/HR; Start 11/04/16 at 19:57 Milrinone Lactate 100 ml @ 4.785 mls/ hr TITRATE IV Last administered on 00:26; Admin Dose 13.05 MLS/HR; Start 11/04/16 at 20:00 Propofol (Diprivan) 100 ml @ 1.74 mls/hr Q12H IV Last administered on 20:59; Admin Dose 1.74 MLS/HR; Start 11/04/16 at 21:00 Hydromorphone HCl (Dilaudid) 0.2 mg Q15M PRN IV PAIN LEVEL 1-5; Start 11/04/16 at 22:00 Hydromorphone HCl (Dilaudid) 0.4 mg Q15M PRN IV PAIN LEVEL 6-10 Last administered on 11/04/16 23:36; Admin Dose 0.4 MG; Start 11/04/16 at 22:00 Hydromorphone HCl (Dilaudid) 0.2 mg Q1H PRN IV PAIN LEVEL 1-5; Start 11/04/16 at 22:00 Hydromorphone HCl (Dilaudid) 0.4 mg Q1H PRN IV PAIN LEVEL 6-10; Start 11/04/16 at 22:00 Acetaminophen 650 mg 650 mg Q3H PRN [place] ELEVATED TEMPERATURE; Start 11/04/16 at 22:00 Phenylephrine HCl 80 mg/Dextrose 500 ml @ 37.5 mls/hr TITRATE IV Last administered on 11/05/16 05:09; Admin Dose 112.5 MLS/HR; Start 11/04/16 at 23: 00 Magnesium Sulfate/ Dextrose (Magnesium Sulfate 1 Gm/D5W) 100 ml @ 100 mls/hr PRN PRN IVPB PENDING LAB VALUE Last administered on 11/05/16 06:21; Admin Dose 100 MLS/HR; Start 11/04/16 at 23:30 Diagnostic Test (Pha) (Accu-Chek) 1 ea Q1H XX Last administered on 11/05/16 07 :00; Admin Dose 1 EA; Start 11/04/16 at 23:30 Dextrose (D50w Syringe) 25 ml Q15M PRN IV Till BS 80 mg/dL or above x2; Start 11/04/16 at 23:30 Dextrose 50 ml 50 ml Q15M PRN IV Till BS 80 mg/dL or above x2; Start 11/04/16 at 23:30 Albumin Human 250 ml @ 500 mls/hr PRN PRN IV CVP< 8, OR SBP<90 Last administered on 11/05/16t 00:55; Admin Dose 500 MLS/HR; Start 11/05/16 at 00:00 SHLOMO HUGHES MD Nov 05, 2016 11:47
[2016-11-05] MEDS: POTASSIUM CHLORIDE 40 MEQ, CALCIUM CHLORIDE 10% 1 GM in DEXTROSE 5%-0.225% NACL 1,000 ML IV SCH (12:38)
[2016-11-05] MEDS: FAMOTIDINE 20 MG TAB PO SCH (13:13)
[2016-11-05] MEDS: ASPIRIN 81 MG TAB PO SCH (13:16)
[2016-11-05] MEDS: HYDROCODONE/APAP (5/325) TAB PO PRN ×2 (13:28→18:28)
[2016-11-05] MEDS: SOD CHLORIDE 0.9% 1,000 ML IV SCH (19:57)
[2016-11-05] MEDS: ATORVASTATIN 40 MG TAB PO SCH (22:17)
[2016-11-06] VITALS (24 sets, daily range): BP systolic 96–126; BP diastolic 58–83; PULSE 81–104; RESP 10–40
[2016-11-06] MEDS: ACCU-CHEK XX SCH ×10 (00:30→12:15)
[2016-11-06] MEDS: HYDROCODONE/APAP (5/325) TAB PO PRN (02:09)
[2016-11-06 05:24] LABS: ABNORMAL IP MESSAGE 1; BASOPHILS % 0.2 % (0.0-2.0); EOSINOPHILS % 0.1 % (0.0-7.0); HEMOGLOBIN 8.2 g/dl (14.0-18.0); LYMPHOCYTES # 0.7 10^3/ul (0.8-2.9); LYMPHOCYTES % 7.5 % (15.0-51.0); MEAN CORPUSCULAR HEMOGLOBIN 28.7 pg (29.0-33.0); MEAN CORPUSCULAR HGB CONC 32.8 g/dl (32.0-37.0); MEAN CORPUSCULAR VOLUME 87.4 fl (82.0-101.0); MONOCYTE # 0.7 10^3/ul (0.3-0.9); MONOCYTES % 7.4 % (0.0-11.0); NEUTROPHIL # 8.1 10^3/ul (1.6-7.5); NEUTROPHILS % 84.2 % (39.0-77.0); NUCLEATED RED BLOOD CELLS% 0.2 /100WBC (0.0-0.0); PLATELET COUNT 79 10^3/UL (140-415); POSITIVE DIFF @See below; RED BLOOD COUNT 2.86 10^6/ul (4.70-6.10); RED CELL DISTRIBUTION WIDTH 14.4 % (11.5-14.5); WHITE BLOOD COUNT 9.6 10^3/ul (4.8-10.8)
[2016-11-06 05:35] LABS: ALBUMIN 3.1 g/dl (3.3-4.9); ALBUMIN/GLOBULIN RATIO 1.24; BILIRUBIN,INDIRECT 0.9 mg/dl (0-1.1); BILIRUBIN,TOTAL 0.9 mg/dl (0.2-1.3); CALCIUM 8.7 mg/dl (8.4-10.2); CREATININE 0.78 mg/dl (0.61-1.24); POTASSIUM 4.7 mmol/L (3.5-5.1); TOTAL PROTEIN 5.6 g/dl (6.1-8.1)
[2016-11-06 05:45] LABS: MAGNESIUM 2.2 mg/dl (1.7-2.5)
[2016-11-06 06:02] LABS: CK-MB 8.46 ng/ml (0.0-2.4)
[2016-11-06 06:03] LABS: TROPONIN-I 2.84 ng/ml (0.00-0.12)
--- NOTE | 2016-11-06 07:38 | CONS ---
Date/Time of Note Date/Time of Note DATE: 11/06/16 TIME: 07:31 Consult Date/Type/Reason Admit Date/Time Oct 31, 2016 at 11:41 Type of Consultation: cardiolpgy Subjective CARDIOLOGY / critical care FOLLOW UP NOTE (covering for DR WATSON) . Discussed with the staff and rhythm was reviewed. pt remains in NSR D/W Dr Oleary. pt s/p CABG 11/04/16. HE is extubated he is off of pressors now and in ICU. pt remains in NSR/ sinus tachy. Subjective: General: NO acute distress HEENT: NC/AT. pupils are equal. round. NECK: s/p R IJ catheter. no stridor. CV: RRR. systolic murmur; no gallop or rubs. PULM: no wheezing or rhonchi. chest : s/p sternotomy. s/p multiple chest tubes in place. GI: SOFT, NT, ND, no rebound or guarding Extremity: trace B/L LE edema. no clubbing. neuro: awake and alert. responds appropriately Psych: calm and pleasant rectal: deferred ECG NSR ST elevation c/w pericarditis. CXR 11/05/16: IMPRESSION: 1. Mild bibasilar atelectasis. Overall, no significant interval change. 2. Expected post cardiac surgery changes. 3. Mild cardiomegaly and aortic atherosclerosis. 4. Tubes and lines, as described above. Objective Vital Signs Date Time Temp Pulse Resp B/P Pulse Ox O2 Delivery O2 Flow Rate FiO2 11/06/16 06:00 85 20 103/59 100 Nasal Cannula 2.0 11/06/16 04:00 99.0 11/06/16 03:25 27 Intake and Output 11/05/16 11/05/16 11/06/16 15:00 23:00 07:00 Intake Total 1109.54 ml 512.4 ml 4.5 ml Output Total 738 ml 901 ml 500 ml Balance 371.54 ml -388.6 ml -495.5 ml Results/Medications Result Diagram: 11/06/16 0449 11/06/16 0455 Results 24 hrs Laboratory Tests Test 11/05/16 08:07 11/05/16 08:11 11/05/16 08:13 11/05/16 09:20 Bedside Glucose 138 Blood Gas Specimen Source Blood arterial BLMV Blood arterial Arterial Blood Date Drawn 11/04/2016 8:12:00 PM 11/04/2016 9:18:00 PM 11/05/2016 9:25:02 AM Arterial Blood pH (Temp corrected) 7.356 7.411 Arterial Blood pCO2 (Temp correct) 44.0 38.3 Arterial Blood pO2 (Temp corrected) 274.6 H 120.4 H Arterial Blood HCO3 24.1 23.8 Arterial Blood Base Excess -1.4 -0.7 Arterial Blood Oxygen Saturation 98.8 H 97.7 Olvin Test N/A N/A N/A Arterial Blood Gas Puncture Site A-Line PUL ART LINE A-Line Arterial Blood Carboxyhemoglobin 0.2 0.2 Arterial Blood Methemoglobin 0.7 0.3 Blood Gas A-a O2 Differential 177.2 H 193.3 48.5 H Oxyhemoglobin Percent 97.9 97.2 Total Hemoglobin 9.8 L 10.2 L Blood Gas Temperature 37.0 37.0 37.0 Blood Gas Respiration Rate 14.0 14.0 Blood Gas Actual Respiration Rate 24 22 22 Blood Gas Modality VENT - AC VENT - AC VENT - CPAP FiO2 70.0 40.0 30.0 Blood Gas Tidal Volume 550.0 550.0 Blood Gas Low PEEP Setting 5.0 5.0 5.0 Blood Gas Inspiratory Pressure 28.0 26.0 Blood Gas Notified Whom MG RTR JLD Blood Gas Notified Time 11/04/2016 8:22:00 PM 11/04/2016 9:28:00 PM 11/05/2016 9:40:55 AM Mixed Venous Blood pH 7.318 L Mixed Venous Blood PCO2 50.8 Mixed Venous Blood PO2 33.5 Mixed Venous Blood HCO3 25.5 Mixed Venous Blood Base Excess -1.0 Mixed Venous Blood O2 Saturation 63.0 L Mixed Venous Blood Total Hemoglobin 10.5 Mixed Venous Blood Oxyhemoglobin 62.4 Mixed Venous Bld Carboxyhemoglobin 0.3 Mixed Venous Blood Methemoglobin 0.6 Blood Gas Pressure Support 10 Test 11/05/16 10:09 11/05/16 11:11 11/05/16 12:16 11/05/16 12:25 Bedside Glucose 106 105 110 Lactic Acid Level 1.3 Test 11/05/16 14:44 11/05/16 16:45 11/05/16 18:03 11/05/16 18:14 Bedside Glucose 99 101 100 Hematocrit 27.3 L Test 11/05/16 22:20 11/06/16 00:00 11/06/16 01:58 11/06/16 04:29 Bedside Glucose 113 118 120 113 Test 11/06/16 04:49 11/06/16 04:55 11/06/16 05:08 11/06/16 06:12 White Blood Count 9.6 Red Blood Count 2.86 L Hemoglobin 8.2 L Hematocrit 25.0 L Mean Corpuscular Volume 87.4 Mean Corpuscular Hemoglobin 28.7 L Mean Corpuscular Hemoglobin Concent 32.8 Red Cell Distribution Width 14.4 Platelet Count 79 #L Mean Platelet Volume 11.0 H Neutrophils % 84.2 H Lymphocytes % 7.5 L Monocytes % 7.4 Eosinophils % 0.1 Basophils % 0.2 Nucleated Red Blood Cells % 0.2 H Neutrophils # 8.1 H Lymphocytes # 0.7 L Monocytes # 0.7 Eosinophils # 0.0 Basophils # 0.0 Nucleated Red Blood Cells # 0.0 Sodium Level 140 Potassium Level 4.7 Chloride Level 106 Carbon Dioxide Level 29 Anion Gap 10 Blood Urea Nitrogen 16 Creatinine 0.78 Glucose Level 108 # Calcium Level 8.7 Magnesium Level 2.2 Total Bilirubin 0.9 Direct Bilirubin 0.00 Indirect Bilirubin 0.9 Aspartate Amino Transf (AST/SGOT) 94 H Alanine Aminotransferase (ALT/SGPT) 45 Alkaline Phosphatase 34 L Creatine Kinase 2827 H Creatine Kinase Index 0.3 Creatinine Kinase MB (Mass) 8.46 H Troponin I 2.840 *H B-Type Natriuretic Peptide 2140 H Total Protein 5.6 L Albumin 3.1 L Globulin 2.50 Albumin/Globulin Ratio 1.24 Lab Scanned Report BLOOD TRANSFUSION Bedside Glucose 110 Medications Current Medications Enoxaparin Sodium (Lovenox) 40 mg DAILY SC Last administered on 11/01/16 10:34 ; Admin Dose 40 MG; Start 11/01/16 at 09:00 Atorvastatin Calcium (Lipitor) 40 mg HS PO Last administered on 11/05/16 22:17 ; Admin Dose 40 MG; Start 10/31/16 at 21:00 Metoprolol Tartrate (Lopressor) 25 mg BID PO Last administered on 11/05/16 22: 17; Admin Dose 25 MG; Start 10/31/16 at 21:00 Aspirin (Aspirin) 81 mg DAILY PO Last administered on 11/05/16 13:16; Admin Dose 81 MG; Start 11/01/16 at 09:00 Famotidine (Pepcid) 20 mg DAILY PO Last administered on 11/05/16 13:13; Admin Dose 20 MG; Start 11/03/16 at 18:00 Acetaminophen (Tylenol Tab) 650 mg Q6H PRN PO PAIN AND OR ELEVATED TEMP; Start 11/03/16 at 17:00 Ondansetron HCl (Zofran Inj) 4 mg Q6H PRN IV NAUSEA AND/OR VOMITING; Start 01/09 at 17:00 Acetaminophen/ Hydrocodone Bitart 1 tab 1 tab Q6H PRN PO PAIN LEVEL 8-10 Last administered on 11/06/16 02:09; Admin Dose 1 TAB; Start 11/03/16 at 17:00 Sodium Chloride (NS) 1,000 ml @ 10 mls/hr Q24H IV Last administered on 19:57; Admin Dose 10 MLS/HR; Start 11/04/16 at 19:57 Hydromorphone HCl (Dilaudid) 0.2 mg Q15M PRN IV PAIN LEVEL 1-5; Start 11/04/16 at 22:00 Hydromorphone HCl (Dilaudid) 0.4 mg Q15M PRN IV PAIN LEVEL 6-10 Last administered on 11/04/16 23:36; Admin Dose 0.4 MG; Start 11/04/16 at 22:00 Hydromorphone HCl (Dilaudid) 0.2 mg Q1H PRN IV PAIN LEVEL 1-5; Start 11/04/16 at 22:00 Hydromorphone HCl (Dilaudid) 0.4 mg Q1H PRN IV PAIN LEVEL 6-10; Start 11/04/16 at 22:00 Acetaminophen 650 mg 650 mg Q3H PRN [place] ELEVATED TEMPERATURE; Start 11/04/16 at 22:00 Magnesium Sulfate/ Dextrose (Magnesium Sulfate 1 Gm/D5W) 100 ml @ 100 mls/hr PRN PRN IVPB PENDING LAB VALUE Last administered on 11/05/16 06:21; Admin Dose 100 MLS/HR; Start 11/04/16 at 23:30 Dextrose (D50w Syringe) 25 ml Q15M PRN IV Till BS 80 mg/dL or above x2; Start 11/04/16 at 23:30 Dextrose 50 ml 50 ml Q15M PRN IV Till BS 80 mg/dL or above x2; Start 11/04/16 at 23:30 Albumin Human 250 ml @ 500 mls/hr PRN PRN IV CVP< 8, OR SBP<90 Last administered on 11/05/16 00:55; Admin Dose 500 MLS/HR; Start 11/05/16 at 00:00 Diagnostic Test (Pha) (Accu-Chek) 1 ea Q1H XX Last administered on 11/06/16 06 :14; Admin Dose 1 EA; Start 11/06/16 at 06:00 Assessment/Plan Chief Complaint/Hosp Course Assessment: severe Obstructive coronary artery disease with left main involvement and Positive stress echo: s/p CABG Abnormal EKG hypoxemic resp failure; Extubated now hx of HTN: anemia DM: on insulin drip now Recommendation/plan: cont post op care off of pressors cont chest tubes for now to be managed per CT surgery. ASA STATIN betablocker as tolerated. monitor H/H and transfuse prn cont ICU care more than 36 min of critical care time was spent in management and treatment of this critically ill pt, excluding any procedures THANK YOU BEBETO JAMES MD [facility] Problems: BEBETO JAMES MD Nov 06, 2016 07:38
--- NOTE | 2016-11-06 08:43 | RADRPT ---
PROCEDURE: XR Chest. CLINICAL INDICATION: Postop CABG follow-up. TECHNIQUE: Single AP portable chest. COMPARISON: 11/04/2016 Chest x-ray FINDINGS: The cardiac silhouette is mildly enlarged with mild vascular congestion. Sternotomy wires, bilateral chest tube and drainage catheters are in stable position. The endotracheal tube has been removed. T he right IJ [place] catheter has been removed with the sheath remaining in place. Atherosclerotic calcification of the aorta. The lungs are clear without pleural effusion or focal consolidation. N o pneumothorax. The osseous structures and soft tissues are unremarkable. IMPRESSION: 1. Cardiomegaly and minimal vascular congestion. 2. Sternotomy wires and and chest U/drainage catheters in place. 3. The endotracheal tube and [place] catheter have been removed with the right IJ the sheath neena ining in place. RPTAT:AAJJ Physician Tamy Date Time Electronically viewed and signed by Physician Tamy on 11/06/2016 08:42 BLAYNE/
[2016-11-06] MEDS: FAMOTIDINE 20 MG TAB PO SCH (09:08)
[2016-11-06] MEDS: METOPROLOL 25 MG TAB PO SCH ×2 (09:09→20:49)
[2016-11-06] MEDS: ASPIRIN 81 MG TAB PO SCH (09:09)
--- NOTE | 2016-11-06 09:57 | PN ---
Date/Time of Note Date/Time of Note DATE: 11/06/16 TIME: 09:49 Assessment/Plan VTE Prophylaxis VTE Prophylaxis Intervention: contraindicated VTE Contraindication Reason: thrombocytopenia Lines/Catheters IV Catheter Type (from Nrs): Saline Lock Urinary Cath still in place: Yes Reason Cath still needed: urinary retention Assessment/Plan Chief Complaint/Hosp Course Assessment/Plan: 61 yo M with severe CAD admitted for CABG eval after LHC revealed sig L main disease, POD # 2 CABG PLAN: 1. CV: cards/CT surg following-status post cardiac bypass surgery yesterday postop day # 2 (see details below) for severe CAD -follow-up post operation recommendations -Continue to monitor drainage from 3 chest tubes, continue insulin drip and pressor support as recommended by cardiothoracic surgery team, follow-up their recommendations and CV recommendations, wean down as tolerated -follow pulmonary recommendations. -Continue bb -Platelets lower today (120 ->79), will hold Lovenox for now, monitor for any signs of bleeding (none presently) DVT prophx -contraindicated because of some mild thrombocytopenia Critical care time spent on patient care today equals 40 minutes. Problems: Subjective 24 Hr Interval Summary Free Text/Dictation Patient still on insulin drip, off pressor support now and extubated yesterday as well. Still with chest tubes. No acute events overnight. Exam/Review of Systems Vital Signs Vitals Vital Signs Date Time Temp Pulse Resp B/P Pulse Ox O2 Delivery O2 Flow Rate FiO2 11/06/16 09:00 87 38 99/83 100 Nasal Cannula 2.0 11/06/16 08:00 98.9 11/06/16 03:25 27 Intake and Output 11/05/16 11/05/16 11/06/16 15:00 23:00 07:00 Intake Total 1109.54 ml 512.4 ml 5.0 ml Output Total 738 ml 901 ml 500 ml Balance 371.54 ml -388.6 ml -495.0 ml Exam No acute distress,lying in bed S1, S2 heard, chest tubes in place resp nonlabored no gross abd distension no rashes no edema Results Result Diagram: 11/06/16 0449 11/06/16 0455 Results 24 hrs Laboratory Tests Test 11/05/16 10:09 11/05/16 11:11 11/05/16 12:16 11/05/16 12:25 Bedside Glucose 106 105 110 Lactic Acid Level 1.3 Test 11/05/16 14:44 11/05/16 16:45 11/05/16 18:03 11/05/16 18:14 Bedside Glucose 99 101 100 Hematocrit 27.3 L Test 11/05/16 22:20 11/06/16 00:00 11/06/16 01:58 11/06/16 04:29 Bedside Glucose 113 118 120 113 Test 11/06/16 04:49 11/06/16 04:55 11/06/16 05:08 11/06/16 06:12 White Blood Count 9.6 Red Blood Count 2.86 L Hemoglobin 8.2 L Hematocrit 25.0 L Mean Corpuscular Volume 87.4 Mean Corpuscular Hemoglobin 28.7 L Mean Corpuscular Hemoglobin Concent 32.8 Red Cell Distribution Width 14.4 Platelet Count 79 #L Mean Platelet Volume 11.0 H Neutrophils % 84.2 H Lymphocytes % 7.5 L Monocytes % 7.4 Eosinophils % 0.1 Basophils % 0.2 Nucleated Red Blood Cells % 0.2 H Neutrophils # 8.1 H Lymphocytes # 0.7 L Monocytes # 0.7 Eosinophils # 0.0 Basophils # 0.0 Nucleated Red Blood Cells # 0.0 Sodium Level 140 Potassium Level 4.7 Chloride Level 106 Carbon Dioxide Level 29 Anion Gap 10 Blood Urea Nitrogen 16 Creatinine 0.78 Glucose Level 108 # Calcium Level 8.7 Magnesium Level 2.2 Total Bilirubin 0.9 Direct Bilirubin 0.00 Indirect Bilirubin 0.9 Aspartate Amino Transf (AST/SGOT) 94 H Alanine Aminotransferase (ALT/SGPT) 45 Alkaline Phosphatase 34 L Creatine Kinase 2827 H Creatine Kinase Index 0.3 Creatinine Kinase MB (Mass) 8.46 H Troponin I 2.840 *H B-Type Natriuretic Peptide 2140 H Total Protein 5.6 L Albumin 3.1 L Globulin 2.50 Albumin/Globulin Ratio 1.24 Lab Scanned Report BLOOD TRANSFUSION Bedside Glucose 110 Test 11/06/16 07:53 Bedside Glucose 113 Medications Medications Current Medications Enoxaparin Sodium (Lovenox) 40 mg DAILY SC Last administered on 11/01/16 10:34 ; Admin Dose 40 MG; Start 11/01/16 at 09:00 Atorvastatin Calcium (Lipitor) 40 mg HS PO Last administered on 11/05/16 22:17 ; Admin Dose 40 MG; Start 10/31/16 at 21:00 Metoprolol Tartrate (Lopressor) 25 mg BID PO Last administered on 11/06/16 09: 09; Admin Dose 25 MG; Start 10/31/16 at 21:00 Aspirin (Aspirin) 81 mg DAILY PO Last administered on 11/06/16 09:09; Admin Dose 81 MG; Start 11/01/16 at 09:00 Famotidine (Pepcid) 20 mg DAILY PO Last administered on 11/06/16 09:08; Admin Dose 20 MG; Start 11/03/16 at 18:00 Acetaminophen (Tylenol Tab) 650 mg Q6H PRN PO PAIN AND OR ELEVATED TEMP; Start 11/03/16 at 17:00 Ondansetron HCl (Zofran Inj) 4 mg Q6H PRN IV NAUSEA AND/OR VOMITING; Start 01/09 at 17:00 Acetaminophen/ Hydrocodone Bitart 1 tab 1 tab Q6H PRN PO PAIN LEVEL 8-10 Last administered on 11/06/16 02:09; Admin Dose 1 TAB; Start 11/03/16 at 17:00 Sodium Chloride (NS) 1,000 ml @ 10 mls/hr Q24H IV Last administered on 19:57; Admin Dose 10 MLS/HR; Start 11/04/16 at 19:57 Hydromorphone HCl (Dilaudid) 0.2 mg Q15M PRN IV PAIN LEVEL 1-5; Start 11/04/16 at 22:00 Hydromorphone HCl (Dilaudid) 0.4 mg Q15M PRN IV PAIN LEVEL 6-10 Last administered on 11/04/16 23:36; Admin Dose 0.4 MG; Start 11/04/16 at 22:00 Hydromorphone HCl (Dilaudid) 0.2 mg Q1H PRN IV PAIN LEVEL 1-5; Start 11/04/16 at 22:00 Hydromorphone HCl (Dilaudid) 0.4 mg Q1H PRN IV PAIN LEVEL 6-10; Start 11/04/16 at 22:00 Acetaminophen 650 mg 650 mg Q3H PRN [place] ELEVATED TEMPERATURE; Start 11/04/16 at 22:00 Magnesium Sulfate/ Dextrose (Magnesium Sulfate 1 Gm/D5W) 100 ml @ 100 mls/hr PRN PRN IVPB PENDING LAB VALUE Last administered on 11/05/16 06:21; Admin Dose 100 MLS/HR; Start 11/04/16 at 23:30 Dextrose (D50w Syringe) 25 ml Q15M PRN IV Till BS 80 mg/dL or above x2; Start 11/04/16 at 23:30 Dextrose 50 ml 50 ml Q15M PRN IV Till BS 80 mg/dL or above x2; Start 11/04/16 at 23:30 Albumin Human 250 ml @ 500 mls/hr PRN PRN IV CVP< 8, OR SBP<90 Last administered on 11/05/16 00:55; Admin Dose 500 MLS/HR; Start 11/05/16 at 00:00 Diagnostic Test (Pha) (Accu-Chek) 1 ea Q1H XX Last administered on 11/06/16 08 :06; Admin Dose 1 EA; Start 11/06/16 at 06:00 ANGELO FARMER Nov 06, 2016 09:57
--- NOTE | 2016-11-06 10:25 | CONS ---
Date/Time of Note Date/Time of Note DATE: 11/06/16 TIME: 10:23 Assessment/Plan Assessment/Plan Additional Assessment/Plan Chest x-ray was reviewed from today which is essentially clear. Assessment and recommendations; 1. Patient status post CABG doing very well postop. Extubated yesterday morning. 2. Anemia. 3. Thrombocytopenia. 4. Diabetes, patient currently on insulin drip at 1.5 U/h. 5. Hypotension with interval resolution. Patient off pressor support. Continue current treatment. Monitor platelet count. Continue to hold anticoagulation. Consultation Date/Type/Reason Admit Date/Time Oct 31, 2016 at 11:41 Initial Consult Date 11/05/16 Type of Consultation: Pulmonary/critical care 24 HR Interval Summary Free Text/Dictation Patient condition stable. He was successfully extubated yesterday morning. Denies any chest pain, abdominal pain, nausea or vomiting. Complains of mild shortness of breath. General exam; elderly male, awake and alert. Currently in no distress. Exam/Review of Systems Vital Signs Vitals Vital Signs Date Time Temp Pulse Resp B/P Pulse Ox O2 Delivery O2 Flow Rate FiO2 11/06/16 09:00 87 38 99/83 100 Nasal Cannula 2.0 11/06/16 08:00 98.9 11/06/16 03:25 27 Intake and Output 11/05/16 11/05/16 11/06/16 15:00 23:00 07:00 Intake Total 1109.54 ml 512.4 ml 5.0 ml Output Total 738 ml 901 ml 500 ml Balance 371.54 ml -388.6 ml -495.0 ml Exam HEENT exam; supple neck, no JVD. No lymphadenopathy. Midline trachea. No thyromegaly. Patient has fair dentition. Pupils are small bilaterally. Chest exam; clear to auscultation. S1-S2 audible, no murmurs. Regular rhythm. There is a dressing applied over the sternum. Bilateral chest tubes are in place. Abdomen exam; soft, no organomegaly. Bowel sounds audible. Nondistended. Nontender. Extremity exam; no peripheral edema. Pulses 1+ bilaterally. [employer] exam; no focal deficit. Results Result Diagram: 11/06/16 0449 11/06/16 0455 Results 24 hrs Laboratory Tests Test 11/05/16 11:11 11/05/16 12:16 11/05/16 12:25 11/05/16 14:44 Bedside Glucose 105 110 99 Lactic Acid Level 1.3 Test 11/05/16 16:45 11/05/16 18:03 11/05/16 18:14 11/05/16 22:20 Bedside Glucose 101 100 113 Hematocrit 27.3 L Test 11/06/16 00:00 11/06/16 01:58 11/06/16 04:29 11/06/16 04:49 Bedside Glucose 118 120 113 White Blood Count 9.6 Red Blood Count 2.86 L Hemoglobin 8.2 L Hematocrit 25.0 L Mean Corpuscular Volume 87.4 Mean Corpuscular Hemoglobin 28.7 L Mean Corpuscular Hemoglobin Concent 32.8 Red Cell Distribution Width 14.4 Platelet Count 79 #L Mean Platelet Volume 11.0 H Neutrophils % 84.2 H Lymphocytes % 7.5 L Monocytes % 7.4 Eosinophils % 0.1 Basophils % 0.2 Nucleated Red Blood Cells % 0.2 H Neutrophils # 8.1 H Lymphocytes # 0.7 L Monocytes # 0.7 Eosinophils # 0.0 Basophils # 0.0 Nucleated Red Blood Cells # 0.0 Test 11/06/16 04:55 11/06/16 05:08 11/06/16 06:12 11/06/16 07:53 Sodium Level 140 Potassium Level 4.7 Chloride Level 106 Carbon Dioxide Level 29 Anion Gap 10 Blood Urea Nitrogen 16 Creatinine 0.78 Glucose Level 108 # Calcium Level 8.7 Magnesium Level 2.2 Total Bilirubin 0.9 Direct Bilirubin 0.00 Indirect Bilirubin 0.9 Aspartate Amino Transf (AST/SGOT) 94 H Alanine Aminotransferase (ALT/SGPT) 45 Alkaline Phosphatase 34 L Creatine Kinase 2827 H Creatine Kinase Index 0.3 Creatinine Kinase MB (Mass) 8.46 H Troponin I 2.840 *H B-Type Natriuretic Peptide 2140 H Total Protein 5.6 L Albumin 3.1 L Globulin 2.50 Albumin/Globulin Ratio 1.24 Lab Scanned Report BLOOD TRANSFUSION Bedside Glucose 110 113 Medications Medications Current Medications Enoxaparin Sodium (Lovenox) 40 mg DAILY SC Last administered on 11/01/16 10:34 ; Admin Dose 40 MG; Start 11/01/16 at 09:00; Status Future Hold Atorvastatin Calcium (Lipitor) 40 mg HS PO Last administered on 11/05/16 22:17 ; Admin Dose 40 MG; Start 10/31/16 at 21:00 Metoprolol Tartrate (Lopressor) 25 mg BID PO Last administered on 11/06/16 09: 09; Admin Dose 25 MG; Start 10/31/16 at 21:00 Aspirin (Aspirin) 81 mg DAILY PO Last administered on 11/06/16 09:09; Admin Dose 81 MG; Start 11/01/16 at 09:00 Famotidine (Pepcid) 20 mg DAILY PO Last administered on 11/06/16 09:08; Admin Dose 20 MG; Start 11/03/16 at 18:00 Acetaminophen (Tylenol Tab) 650 mg Q6H PRN PO PAIN AND OR ELEVATED TEMP; Start 11/03/16 at 17:00 Ondansetron HCl (Zofran Inj) 4 mg Q6H PRN IV NAUSEA AND/OR VOMITING; Start 01/09 at 17:00 Acetaminophen/ Hydrocodone Bitart 1 tab 1 tab Q6H PRN PO PAIN LEVEL 8-10 Last administered on 11/06/16 02:09; Admin Dose 1 TAB; Start 11/03/16 at 17:00 Sodium Chloride (NS) 1,000 ml @ 10 mls/hr Q24H IV Last administered on 19:57; Admin Dose 10 MLS/HR; Start 11/04/16 at 19:57 Hydromorphone HCl (Dilaudid) 0.2 mg Q15M PRN IV PAIN LEVEL 1-5; Start 11/04/16 at 22:00 Hydromorphone HCl (Dilaudid) 0.4 mg Q15M PRN IV PAIN LEVEL 6-10 Last administered on 11/04/16 23:36; Admin Dose 0.4 MG; Start 11/04/16 at 22:00 Hydromorphone HCl (Dilaudid) 0.2 mg Q1H PRN IV PAIN LEVEL 1-5; Start 11/04/16 at 22:00 Hydromorphone HCl (Dilaudid) 0.4 mg Q1H PRN IV PAIN LEVEL 6-10; Start 11/04/16 at 22:00 Acetaminophen 650 mg 650 mg Q3H PRN [place] ELEVATED TEMPERATURE; Start 11/04/16 at 22:00 Magnesium Sulfate/ Dextrose (Magnesium Sulfate 1 Gm/D5W) 100 ml @ 100 mls/hr PRN PRN IVPB PENDING LAB VALUE Last administered on 11/05/16 06:21; Admin Dose 100 MLS/HR; Start 11/04/16 at 23:30 Dextrose (D50w Syringe) 25 ml Q15M PRN IV Till BS 80 mg/dL or above x2; Start 11/04/16 at 23:30 Dextrose 50 ml 50 ml Q15M PRN IV Till BS 80 mg/dL or above x2; Start 11/04/16 at 23:30 Albumin Human 250 ml @ 500 mls/hr PRN PRN IV CVP< 8, OR SBP<90 Last administered on 11/05/16 00:55; Admin Dose 500 MLS/HR; Start 11/05/16 at 00:00 Diagnostic Test (Pha) (Accu-Chek) 1 ea Q1H XX Last administered on 11/06/16 08 :06; Admin Dose 1 EA; Start 11/06/16 at 06:00 KIMBERLY ARELLANO Nov 06, 2016 10:25
--- NOTE | 2016-11-06 11:08 | RADRPT ---
Vent Rate: 62 bpm RR Interval: 0 msec [place] Interval: 154 msec QRS Duration: 86 msec QT Interval: 418 msec QTC Interval: 424 msec P-R-T [place]: 78 - 81 - 85 degrees Sinus rhythm with occasional premature ventricular complexes Cannot rule out Anterior infarct , age undetermined Abnormal ECG Electronically Signed By: Flip Fowler [phone]
--- NOTE | 2016-11-06 11:12 | RADRPT ---
Vent Rate: 95 bpm RR Interval: 0 msec AR Interval: 144 msec QRS Duration: 82 msec QT Interval: 330 msec QTC Interval: 414 msec P-R-T [place]: 65 - 79 - 74 degrees Normal sinus rhythm Early repolarization Normal ECG Electronically Signed By: Flip Fowler [id number]
--- NOTE | 2016-11-06 12:22 | PN ---
Date/Time of Note Date/Time of Note DATE: 11/06/16 TIME: 12:21 Assessment/Plan Lines/Catheters IV Catheter Type (from Nrsg): Saline Lock Coy in Place (from Nrsg): Yes Assessment/Plan Chief Complaint/Hosp Course SP CABG Extubated DC Coy continue CT one more day will ambulate pulm toilet Problems: Subjective 24 Hr Interval Summary Constitutional: improved Pain Control: mild Exam/Review of Systems Vital Signs Vitals Vital Signs Date Time Temp Pulse Resp B/P Pulse Ox O2 Delivery O2 Flow Rate FiO2 11/06/16 11:00 82 21 101/65 100 Nasal Cannula 2.0 11/06/16 08:00 98.9 11/06/16 03:25 27 Intake and Output 11/05/16 11/05/16 11/06/16 15:00 23:00 07:00 Intake Total 1109.54 ml 512.4 ml 5.0 ml Output Total 738 ml 901 ml 500 ml Balance 371.54 ml -388.6 ml -495.0 ml Exam Neck: non-tender, supple Respiratory: clear to auscultation, normal air movement Cardiovascular: nl pulses, regular rate and rhythm Gastrointestinal: nl liver, spleen, non-tender, soft Results Result Diagram: 11/06/16 0449 11/06/16 0455 SHLOMO HUGHES MD Nov 06, 2016 12:22
[2016-11-06] MEDS ORDERED: DEXTROSE 50% 50 ML SYRINGE IV PRN ×2 (14:30)
[2016-11-06] MEDS ORDERED: GLUCOSE GEL 15 GRAM TUBE PO PRN ×2 (14:30)
[2016-11-06] MEDS ORDERED: GLUCOSE GEL 15 GRAM TUBE BUCCAL PRN (14:30)
[2016-11-06] MEDS ORDERED: GLUCAGON 1 MG INJ IM PRN (14:30)
[2016-11-06] MEDS: INSULIN ASPART [NOVOLOG] 3 ML PEN SC SCH ×2 (17:35→20:40)
[2016-11-06] MEDS: SOD CHLORIDE 0.9% 1,000 ML IV SCH (19:57)
[2016-11-06] MEDS: HYDROmorphONE 1 MG/ML SYG IV PRN (20:16)
[2016-11-06] MEDS: ATORVASTATIN 40 MG TAB PO SCH (20:48)
[2016-11-06] MEDS: INSULIN GLARGINE [LANtus] 3 ML PEN SC SCH (20:51)
[2016-11-07] VITALS (23 sets, daily range): BP systolic 92–121; BP diastolic 59–85; PULSE 69–103; RESP 13–31
[2016-11-07] MEDS: ACCU-CHEK XX SCH ×2 (02:00)
[2016-11-07] MEDS: HYDROmorphONE 1 MG/ML SYG IV PRN ×2 (04:15→22:15)
[2016-11-07 06:49] LABS: BASOPHILS % 0.3 % (0.0-2.0); EOSINOPHILS # 0.1 10^3/ul (0.0-0.5); EOSINOPHILS % 0.6 % (0.0-7.0); LYMPHOCYTES # 1.2 10^3/ul (0.8-2.9); LYMPHOCYTES % 11.1 % (15.0-51.0); MEAN CORPUSCULAR HEMOGLOBIN 29.3 pg (29.0-33.0); MEAN CORPUSCULAR HGB CONC 32.1 g/dl (32.0-37.0); MEAN CORPUSCULAR VOLUME 91.2 fl (82.0-101.0); MEAN PLATELET VOLUME 10.9 fl (7.4-10.4); MONOCYTE # 0.9 10^3/ul (0.3-0.9); MONOCYTES % 8.1 % (0.0-11.0); NEUTROPHIL # 8.4 10^3/ul (1.6-7.5); NEUTROPHILS % 79.1 % (39.0-77.0); NUCLEATED RED BLOOD CELLS # 0.1 10^3/ul (0.0-0.0); NUCLEATED RED BLOOD CELLS% 0.7 /100WBC (0.0-0.0); PLATELET COUNT 101 10^3/UL (140-415); RED BLOOD COUNT 3.07 10^6/ul (4.70-6.10); RED CELL DISTRIBUTION WIDTH 13.8 % (11.5-14.5); WHITE BLOOD COUNT 10.6 10^3/ul (4.8-10.8)
[2016-11-07 07:14] LABS: MAGNESIUM 2.1 mg/dl (1.7-2.5); PHOSPHORUS 3.1 mg/dl (2.5-4.9)
[2016-11-07 07:16] LABS: ALBUMIN 3.5 g/dl (3.3-4.9); ALBUMIN/GLOBULIN RATIO 1.25; BILIRUBIN,INDIRECT 0.9 mg/dl (0-1.1); BILIRUBIN,TOTAL 0.9 mg/dl (0.2-1.3); CALCIUM 9.1 mg/dl (8.4-10.2); CREATININE 0.78 mg/dl (0.61-1.24); TOTAL PROTEIN 6.3 g/dl (6.1-8.1)
[2016-11-07] MEDS: INSULIN ASPART [NOVOLOG] 3 ML PEN SC SCH ×4 (07:35→20:44)
--- NOTE | 2016-11-07 07:51 | CONS ---
Date/Time of Note Date/Time of Note DATE: 11/07/16 TIME: 07:48 Consult Date/Type/Reason Admit Date/Time Oct 31, 2016 at 11:41 Type of Consultation: Pulmonary/critical care Subjective CARDIOLOGY / critical care FOLLOW UP NOTE (covering for DR WATSON) . Discussed with the staff and rhythm was reviewed. pt remains in NSR. NO AFIB pt s/p CABG 11/04/16. HE is extubated he is off of pressors now and in ICU. pt remains in NSR/ sinus tachy. HE has mild chest wall tenderness only Subjective: General: NO acute distress HEENT: NC/AT. pupils are equal. round. NECK:. no stridor. CV: RRR. systolic murmur; no gallop or rubs. PULM: no wheezing or rhonchi. chest : s/p sternotomy. s/p multiple chest tubes in place. GI: SOFT, NT, ND, no rebound or guarding Extremity: trace B/L LE edema. no clubbing. neuro: awake and alert. responds appropriately Psych: calm and pleasant rectal: deferred ECG NSR ST elevation c/w pericarditis. CXR 11/05/16: IMPRESSION: 1. Mild bibasilar atelectasis. Overall, no significant interval change. 2. Expected post cardiac surgery changes. 3. Mild cardiomegaly and aortic atherosclerosis. 4. Tubes and lines, as described above. CXR 11/06: 1. Cardiomegaly and minimal vascular congestion. 2. Sternotomy wires and and chest U/drainage catheters in place. 3. The endotracheal tube and [place] catheter have been removed with the right IJ the sheath remaining in place. Objective Vital Signs Date Time Temp Pulse Resp B/P Pulse Ox O2 Delivery O2 Flow Rate FiO2 11/07/16 07:00 91 13 102/79 100 Nasal Cannula 3.0 11/07/16 06:11 27 11/07/16 06:00 98.0 Intake and Output 11/06/16 11/06/16 11/07/16 15:00 23:00 07:00 Intake Total 682.5 ml 320 ml 260 ml Output Total 457 ml 540 ml 160 ml Balance 225.5 ml -220 ml 100 ml Results/Medications Result Diagram: 11/07/16 0553 11/07/16 0553 Results 24 hrs Laboratory Tests Test 11/06/16 07:53 11/06/16 10:28 11/06/16 12:09 11/06/16 17:50 Bedside Glucose 113 146 122 117 Test 11/06/16 20:36 11/07/16 05:53 Bedside Glucose 147 White Blood Count 10.6 Red Blood Count 3.07 L Hemoglobin 9.0 L Hematocrit 28.0 L Mean Corpuscular Volume 91.2 Mean Corpuscular Hemoglobin 29.3 Mean Corpuscular Hemoglobin Concent 32.1 Red Cell Distribution Width 13.8 Platelet Count 101 #L Mean Platelet Volume 10.9 H Neutrophils % 79.1 H Lymphocytes % 11.1 L Monocytes % 8.1 Eosinophils % 0.6 Basophils % 0.3 Nucleated Red Blood Cells % 0.7 H Neutrophils # 8.4 H Lymphocytes # 1.2 Monocytes # 0.9 Eosinophils # 0.1 Basophils # 0.0 Nucleated Red Blood Cells # 0.1 H Sodium Level 138 Potassium Level 5.0 Chloride Level 104 Carbon Dioxide Level 28 Anion Gap 11 Blood Urea Nitrogen 23 H Creatinine 0.78 Glucose Level 133 Calcium Level 9.1 Phosphorus Level 3.1 Magnesium Level 2.1 Total Bilirubin 0.9 Direct Bilirubin 0.00 Indirect Bilirubin 0.9 Aspartate Amino Transf (AST/SGOT) 70 H Alanine Aminotransferase (ALT/SGPT) 46 Alkaline Phosphatase 46 Total Protein 6.3 Albumin 3.5 Globulin 2.80 Albumin/Globulin Ratio 1.25 Medications Current Medications Atorvastatin Calcium (Lipitor) 40 mg HS PO Last administered on 11/06/16 20:48 ; Admin Dose 40 MG; Start 10/31/16 at 21:00 Metoprolol Tartrate (Lopressor) 25 mg BID PO Last administered on 11/06/16 20: 49; Admin Dose 25 MG; Start 10/31/16 at 21:00 Aspirin (Aspirin) 81 mg DAILY PO Last administered on 11/06/16 09:09; Admin Dose 81 MG; Start 11/01/16 at 09:00 Famotidine (Pepcid) 20 mg DAILY PO Last administered on 11/06/16 09:08; Admin Dose 20 MG; Start 11/03/16 at 18:00 Acetaminophen (Tylenol Tab) 650 mg Q6H PRN PO PAIN AND OR ELEVATED TEMP; Start 11/03/16 at 17:00 Ondansetron HCl (Zofran Inj) 4 mg Q6H PRN IV NAUSEA AND/OR VOMITING; Start 01/09 at 17:00 Acetaminophen/ Hydrocodone Bitart 1 tab 1 tab Q6H PRN PO PAIN LEVEL 8-10 Last administered on 11/06/16 02:09; Admin Dose 1 TAB; Start 11/03/16 at 17:00 Sodium Chloride (NS) 1,000 ml @ 10 mls/hr Q24H IV Last administered on 19:57; Admin Dose 10 MLS/HR; Start 11/04/16 at 19:57 Hydromorphone HCl (Dilaudid) 0.2 mg Q15M PRN IV PAIN LEVEL 1-5; Start 11/04/16 at 22:00 Hydromorphone HCl (Dilaudid) 0.4 mg Q15M PRN IV PAIN LEVEL 6-10 Last administered on 11/07/16 04:15; Admin Dose 0.4 MG; Start 11/04/16 at 22:00 Hydromorphone HCl (Dilaudid) 0.2 mg Q1H PRN IV PAIN LEVEL 1-5; Start 11/04/16 at 22:00 Hydromorphone HCl (Dilaudid) 0.4 mg Q1H PRN IV PAIN LEVEL 6-10; Start 11/04/16 at 22:00 Acetaminophen 650 mg 650 mg Q3H PRN [place] ELEVATED TEMPERATURE; Start 11/04/16 at 22:00 Magnesium Sulfate/ Dextrose (Magnesium Sulfate 1 Gm/D5W) 100 ml @ 100 mls/hr PRN PRN IVPB PENDING LAB VALUE Last administered on 11/05/16 06:21; Admin Dose 100 MLS/HR; Start 11/04/16 at 23:30 Diagnostic Test (Pha) (Accu-Chek) 1 ea 02 XX ; Start 11/07/16 at 02:00 Insulin Glargine (Lantus) 10 unit HS SC Last administered on 11/06/16 20:51; Admin Dose 10 UNIT; Start 11/06/16 at 21:00 Diagnostic Test (Pha) (Accu-Chek) 1 ea 02 XX ; Start 11/07/16 at 02:00 Miscellaneous Information 1 ea NOTE XX ; Start 11/06/16 at 14:30 Glucose (Glutose) 15 gm Q15M PRN PO DECREASED GLUCOSE; Start 11/06/16 at 14:30 Glucose (Glutose) 22.5 gm Q15M PRN PO DECREASED GLUCOSE; Start 11/06/16 at 14: 30 Dextrose (D50w Syringe) 25 ml Q15M PRN IV DECREASED GLUCOSE; Start 11/06/16 at 14:30 Dextrose (D50w Syringe) 50 ml Q15M PRN IV DECREASED GLUCOSE; Start 11/06/16 at 14:30 Glucagon (Glucagen) 1 mg Q15M PRN IM DECREASED GLUCOSE; Start 11/06/16 at 14:30 Glucose (Glutose) 15 gm Q15M PRN BUCCAL DECREASED GLUCOSE; Start 11/06/16 at 14 :30 Enoxaparin Sodium (Lovenox) 40 mg DAILY SC ; Start 11/07/16 at 09:00 Assessment/Plan Chief Complaint/Hosp Course Assessment: severe Obstructive coronary artery disease with left main involvement and Positive stress echo: s/p CABG Abnormal EKG s/p post op hypoxemic resp failure; Extubated now hx of HTN: anemia DM: on insulin Recommendation/plan: cont post op care off of pressors cont chest tubes for now to be managed per CT surgery. ASA STATIN betablocker as tolerated. monitor H/H and transfuse prn cont ICU care more than 35 min of critical care time was spent in management and treatment of this critically ill pt, excluding any procedures THANK YOU BEBETO JAMES MD [facility] Problems: BEBETO JAMES MD Nov 07, 2016 07:51
[2016-11-07] MEDS: ASPIRIN 81 MG TAB PO SCH (08:26)
[2016-11-07] MEDS: FAMOTIDINE 20 MG TAB PO SCH (08:26)
[2016-11-07] MEDS: METOPROLOL 25 MG TAB PO SCH ×2 (08:28→20:35)
--- NOTE | 2016-11-07 08:37 | CONS ---
Date/Time of Note Date/Time of Note DATE: 11/07/16 TIME: 08:35 Assessment/Plan Assessment/Plan Additional Assessment/Plan Assessment and recommendations; 1. Patient status post CABG surgery doing very well. 2. Episode of hypotension postop, with interval resolution. Patient off any pressor support. 3. Mild anemia and thrombocytopenia. 4. Diabetes. Continue current treatment. Consultation Date/Type/Reason Admit Date/Time Oct 31, 2016 at 11:41 Initial Consult Date 11/05/16 Type of Consultation: Pulmonary/critical care 24 HR Interval Summary Free Text/Dictation Patient's condition is stable. Remains awake and alert. Denies any shortness of breath, chest pain. General exam; elderly male, awake and alert. Currently in no distress. Exam/Review of Systems Vital Signs Vitals Vital Signs Date Time Temp Pulse Resp B/P Pulse Ox O2 Delivery O2 Flow Rate FiO2 11/07/16 07:00 91 13 102/79 100 Nasal Cannula 3.0 11/07/16 06:11 27 11/07/16 06:00 98.0 Intake and Output 11/06/16 11/06/16 11/07/16 15:00 23:00 07:00 Intake Total 682.5 ml 320 ml 260 ml Output Total 457 ml 540 ml 160 ml Balance 225.5 ml -220 ml 100 ml Exam HEENT exam; supple neck, no JVD. No lymphadenopathy. Midline trachea. No thyromegaly. Pharynx is clear. Patient has fair dentition. Chest exam; clear to auscultation. S1-S2 audible, no murmurs. Regular rhythm. Dressing applied over sternum. Bilateral chest tubes are in place. Abdomen exam; soft, no organomegaly. Nontender. Bowel sounds audible. Extremity exam; no peripheral edema. Pulses 1+ bilaterally. [employer] exam; no focal deficit. Results Result Diagram: 11/07/16 0553 11/07/16 0553 Results 24 hrs Laboratory Tests Test 11/06/16 10:28 11/06/16 12:09 11/06/16 17:50 11/06/16 20:36 Bedside Glucose 146 122 117 147 Test 11/07/16 05:53 11/07/16 07:55 White Blood Count 10.6 Red Blood Count 3.07 L Hemoglobin 9.0 L Hematocrit 28.0 L Mean Corpuscular Volume 91.2 Mean Corpuscular Hemoglobin 29.3 Mean Corpuscular Hemoglobin Concent 32.1 Red Cell Distribution Width 13.8 Platelet Count 101 #L Mean Platelet Volume 10.9 H Neutrophils % 79.1 H Lymphocytes % 11.1 L Monocytes % 8.1 Eosinophils % 0.6 Basophils % 0.3 Nucleated Red Blood Cells % 0.7 H Neutrophils # 8.4 H Lymphocytes # 1.2 Monocytes # 0.9 Eosinophils # 0.1 Basophils # 0.0 Nucleated Red Blood Cells # 0.1 H Sodium Level 138 Potassium Level 5.0 Chloride Level 104 Carbon Dioxide Level 28 Anion Gap 11 Blood Urea Nitrogen 23 H Creatinine 0.78 Glucose Level 133 Calcium Level 9.1 Phosphorus Level 3.1 Magnesium Level 2.1 Total Bilirubin 0.9 Direct Bilirubin 0.00 Indirect Bilirubin 0.9 Aspartate Amino Transf (AST/SGOT) 70 H Alanine Aminotransferase (ALT/SGPT) 46 Alkaline Phosphatase 46 Total Protein 6.3 Albumin 3.5 Globulin 2.80 Albumin/Globulin Ratio 1.25 Bedside Glucose 132 Medications Medications Current Medications Atorvastatin Calcium (Lipitor) 40 mg HS PO Last administered on 11/06/16 20:48 ; Admin Dose 40 MG; Start 10/31/16 at 21:00 Metoprolol Tartrate (Lopressor) 25 mg BID PO Last administered on 11/07/16 08: 28; Admin Dose 25 MG; Start 10/31/16 at 21:00 Aspirin (Aspirin) 81 mg DAILY PO Last administered on 11/07/16 08:26; Admin Dose 81 MG; Start 11/01/16 at 09:00 Famotidine (Pepcid) 20 mg DAILY PO Last administered on 11/07/16 08:26; Admin Dose 20 MG; Start 11/03/16 at 18:00 Acetaminophen (Tylenol Tab) 650 mg Q6H PRN PO PAIN AND OR ELEVATED TEMP; Start 11/03/16 at 17:00 Ondansetron HCl (Zofran Inj) 4 mg Q6H PRN IV NAUSEA AND/OR VOMITING; Start 01/09 at 17:00 Acetaminophen/ Hydrocodone Bitart 1 tab 1 tab Q6H PRN PO PAIN LEVEL 8-10 Last administered on 11/06/16 02:09; Admin Dose 1 TAB; Start 11/03/16 at 17:00 Sodium Chloride (NS) 1,000 ml @ 10 mls/hr Q24H IV Last administered on 19:57; Admin Dose 10 MLS/HR; Start 11/04/16 at 19:57 Hydromorphone HCl (Dilaudid) 0.2 mg Q15M PRN IV PAIN LEVEL 1-5; Start 11/04/16 at 22:00 Hydromorphone HCl (Dilaudid) 0.4 mg Q15M PRN IV PAIN LEVEL 6-10 Last administered on 11/07/16 04:15; Admin Dose 0.4 MG; Start 11/04/16 at 22:00 Hydromorphone HCl (Dilaudid) 0.2 mg Q1H PRN IV PAIN LEVEL 1-5; Start 11/04/16 at 22:00 Hydromorphone HCl (Dilaudid) 0.4 mg Q1H PRN IV PAIN LEVEL 6-10; Start 11/04/16 at 22:00 Acetaminophen 650 mg 650 mg Q3H PRN [place] ELEVATED TEMPERATURE; Start 11/04/16 at 22:00 Magnesium Sulfate/ Dextrose (Magnesium Sulfate 1 Gm/D5W) 100 ml @ 100 mls/hr PRN PRN IVPB PENDING LAB VALUE Last administered on 11/05/16 06:21; Admin Dose 100 MLS/HR; Start 11/04/16 at 23:30 Diagnostic Test (Pha) (Accu-Chek) 1 ea 02 XX ; Start 11/07/16 at 02:00 Insulin Glargine (Lantus) 10 unit HS SC Last administered on 11/06/16 20:51; Admin Dose 10 UNIT; Start 11/06/16 at 21:00 Diagnostic Test (Pha) (Accu-Chek) 1 ea 02 XX ; Start 11/07/16 at 02:00 Miscellaneous Information 1 ea NOTE XX ; Start 11/06/16 at 14:30 Glucose (Glutose) 15 gm Q15M PRN PO DECREASED GLUCOSE; Start 11/06/16 at 14:30 Glucose (Glutose) 22.5 gm Q15M PRN PO DECREASED GLUCOSE; Start 11/06/16 at 14: 30 Dextrose (D50w Syringe) 25 ml Q15M PRN IV DECREASED GLUCOSE; Start 11/06/16 at 14:30 Dextrose (D50w Syringe) 50 ml Q15M PRN IV DECREASED GLUCOSE; Start 11/06/16 at 14:30 Glucagon (Glucagen) 1 mg Q15M PRN IM DECREASED GLUCOSE; Start 11/06/16 at 14:30 Glucose (Glutose) 15 gm Q15M PRN BUCCAL DECREASED GLUCOSE; Start 11/06/16 at 14 :30 Enoxaparin Sodium (Lovenox) 40 mg DAILY SC ; Start 11/07/16 at 09:00 KIMBERLY ARELLANO Nov 07, 2016 08:37
--- NOTE | 2016-11-07 08:37 | RADRPT ---
PROCEDURE: XR Chest. CLINICAL INDICATION: Chest tube follow-up TECHNIQUE: AP Portable chest. COMPARISON: 11/06/2016 FINDINGS: The right IJ sheath has been removed. Mediastinal drains and bilateral chest tubes remain in place. The cardiomediastinal silhouette is normal.The aortic arch is calcified. Sternotomy wires and medi astinal clips are visualized. No pneumothorax or pneumothorax is seen. Retrocardiac density is seen. There is mild right basilar atelectasis. The osseous structures are intact. IMPRESSION: Interval removal of the right IJ sheath. Bilateral chest tubes and mediastinal drains in place. Retrocardiac density, likely atelectasis. Physician Pedro Date Time Electronically viewed and signed by Physician Pedro on 11/07/2016 08:37 CS/
--- NOTE | 2016-11-07 09:47 | PN ---
Date/Time of Note Date/Time of Note DATE: 11/07/16 TIME: 09:40 Assessment/Plan VTE Prophylaxis VTE Prophylaxis Intervention: LMWH Lines/Catheters IV Catheter Type (from [facility]): Saline Lock Urinary Cath still in place: No Assessment/Plan Chief Complaint/Hosp Course Assessment/Plan: 61 yo M with severe CAD admitted for CABG eval after LHC revealed sig L main disease, POD # 3 CABG PLAN: 1. CV: cards/CT surg following-status post cardiac bypass surgery yesterday postop day # 3 (see details below) for severe CAD -follow-up post operation recommendations -Continue to monitor drainage from 3 chest tubes, continue insulin drip and pressor support as recommended by cardiothoracic surgery team, follow-up their recommendations and CV recommendations, wean down as tolerated -follow pulmonary recommendations. -Continue bb - for mild thrombocytopenia, monitor for any signs of bleeding (none presently) DVT prophx -contraindicated because of some mild thrombocytopenia Critical care time spent on patient care today equals 40 minutes. Problems: Subjective 24 Hr Interval Summary Free Text/Dictation Patient work with physical therapy presently, has some mild chest pain, otherwise no acute events overnight. Seen by cardiology team and pulmonary team this morning. Exam/Review of Systems Vital Signs Vitals Vital Signs Date Time Temp Pulse Resp B/P Pulse Ox O2 Delivery O2 Flow Rate FiO2 11/07/16 08:00 Nasal Cannula 2.0 11/07/16 07:00 91 13 102/79 100 11/07/16 06:11 27 11/07/16 06:00 98.0 Intake and Output 11/06/16 11/06/16 11/07/16 15:00 23:00 07:00 Intake Total 682.5 ml 320 ml 260 ml Output Total 457 ml 540 ml 160 ml Balance 225.5 ml -220 ml 100 ml Exam No acute distress,lying in bed S1, S2 heard, chest tubes in place resp nonlabored no gross abd distension no rashes no edema Results Result Diagram: 11/07/16 0553 11/07/16 0553 Results 24 hrs Laboratory Tests Test 11/06/16 10:28 11/06/16 12:09 11/06/16 17:50 11/06/16 20:36 Bedside Glucose 146 122 117 147 Test 11/07/16 05:53 11/07/16 07:55 White Blood Count 10.6 Red Blood Count 3.07 L Hemoglobin 9.0 L Hematocrit 28.0 L Mean Corpuscular Volume 91.2 Mean Corpuscular Hemoglobin 29.3 Mean Corpuscular Hemoglobin Concent 32.1 Red Cell Distribution Width 13.8 Platelet Count 101 #L Mean Platelet Volume 10.9 H Neutrophils % 79.1 H Lymphocytes % 11.1 L Monocytes % 8.1 Eosinophils % 0.6 Basophils % 0.3 Nucleated Red Blood Cells % 0.7 H Neutrophils # 8.4 H Lymphocytes # 1.2 Monocytes # 0.9 Eosinophils # 0.1 Basophils # 0.0 Nucleated Red Blood Cells # 0.1 H Sodium Level 138 Potassium Level 5.0 Chloride Level 104 Carbon Dioxide Level 28 Anion Gap 11 Blood Urea Nitrogen 23 H Creatinine 0.78 Glucose Level 133 Calcium Level 9.1 Phosphorus Level 3.1 Magnesium Level 2.1 Total Bilirubin 0.9 Direct Bilirubin 0.00 Indirect Bilirubin 0.9 Aspartate Amino Transf (AST/SGOT) 70 H Alanine Aminotransferase (ALT/SGPT) 46 Alkaline Phosphatase 46 Total Protein 6.3 Albumin 3.5 Globulin 2.80 Albumin/Globulin Ratio 1.25 Bedside Glucose 132 Medications Medications Current Medications Atorvastatin Calcium (Lipitor) 40 mg HS PO Last administered on 11/06/16 20:48 ; Admin Dose 40 MG; Start 10/31/16 at 21:00 Metoprolol Tartrate (Lopressor) 25 mg BID PO Last administered on 11/07/16 08: 28; Admin Dose 25 MG; Start 10/31/16 at 21:00 Aspirin (Aspirin) 81 mg DAILY PO Last administered on 11/07/16 08:26; Admin Dose 81 MG; Start 11/01/16 at 09:00 Famotidine (Pepcid) 20 mg DAILY PO Last administered on 11/07/16 08:26; Admin Dose 20 MG; Start 11/03/16 at 18:00 Acetaminophen (Tylenol Tab) 650 mg Q6H PRN PO PAIN AND OR ELEVATED TEMP; Start 11/03/16 at 17:00 Ondansetron HCl (Zofran Inj) 4 mg Q6H PRN IV NAUSEA AND/OR VOMITING; Start 01/09 at 17:00 Acetaminophen/ Hydrocodone Bitart 1 tab 1 tab Q6H PRN PO PAIN LEVEL 8-10 Last administered on 11/06/16 02:09; Admin Dose 1 TAB; Start 11/03/16 at 17:00 Sodium Chloride (NS) 1,000 ml @ 10 mls/hr Q24H IV Last administered on 19:57; Admin Dose 10 MLS/HR; Start 11/04/16 at 19:57 Hydromorphone HCl (Dilaudid) 0.2 mg Q15M PRN IV PAIN LEVEL 1-5; Start 11/04/16 at 22:00 Hydromorphone HCl (Dilaudid) 0.4 mg Q15M PRN IV PAIN LEVEL 6-10 Last administered on 11/07/16 04:15; Admin Dose 0.4 MG; Start 11/04/16 at 22:00 Hydromorphone HCl (Dilaudid) 0.2 mg Q1H PRN IV PAIN LEVEL 1-5; Start 11/04/16 at 22:00 Hydromorphone HCl (Dilaudid) 0.4 mg Q1H PRN IV PAIN LEVEL 6-10; Start 11/04/16 at 22:00 Acetaminophen 650 mg 650 mg Q3H PRN [place] ELEVATED TEMPERATURE; Start 11/04/16 at 22:00 Magnesium Sulfate/ Dextrose (Magnesium Sulfate 1 Gm/D5W) 100 ml @ 100 mls/hr PRN PRN IVPB PENDING LAB VALUE Last administered on 11/05/16 06:21; Admin Dose 100 MLS/HR; Start 11/04/16 at 23:30 Diagnostic Test (Pha) (Accu-Chek) 1 ea 02 XX ; Start 11/07/16 at 02:00 Insulin Glargine (Lantus) 10 unit HS SC Last administered on 11/06/16 20:51; Admin Dose 10 UNIT; Start 11/06/16 at 21:00 Diagnostic Test (Pha) (Accu-Chek) 1 ea 02 XX ; Start 11/07/16 at 02:00 Miscellaneous Information 1 ea NOTE XX ; Start 11/06/16 at 14:30 Glucose (Glutose) 15 gm Q15M PRN PO DECREASED GLUCOSE; Start 11/06/16 at 14:30 Glucose (Glutose) 22.5 gm Q15M PRN PO DECREASED GLUCOSE; Start 11/06/16 at 14: 30 Dextrose (D50w Syringe) 25 ml Q15M PRN IV DECREASED GLUCOSE; Start 11/06/16 at 14:30 Dextrose (D50w Syringe) 50 ml Q15M PRN IV DECREASED GLUCOSE; Start 11/06/16 at 14:30 Glucagon (Glucagen) 1 mg Q15M PRN IM DECREASED GLUCOSE; Start 11/06/16 at 14:30 Glucose (Glutose) 15 gm Q15M PRN BUCCAL DECREASED GLUCOSE; Start 11/06/16 at 14 :30 Enoxaparin Sodium (Lovenox) 40 mg DAILY SC ; Start 11/07/16 at 09:00 ANGELO FARMER Nov 07, 2016 09:47
[2016-11-07] MEDS: ENOXAPARIN 40 MG/0.4 ML SYG SC SCH (09:58)
--- NOTE | 2016-11-07 10:57 | PN ---
Date/Time of Note Date/Time of Note DATE: 11/07/16 TIME: 10:57 Assessment/Plan Lines/Catheters IV [facility] (from [facility]): Saline Lock Coy in Place (from Nrs): No Assessment/Plan Chief Complaint/Hosp Course SP CABG Extubated CT 240 cc last shift continue CT one more day will ambulate pulm toilet Problems: Subjective 24 Hr Interval Summary Constitutional: improved Exam/Review of Systems Vital Signs Vitals Vital Signs Date Time Temp Pulse Resp B/P Pulse Ox O2 Delivery O2 Flow Rate FiO2 11/07/16 10:00 92 31 116/76 100 Nasal Cannula 2.0 11/07/16 08:00 98.4 11/07/16 06:11 27 Intake and Output 11/06/16 11/06/16 11/07/16 15:00 23:00 07:00 Intake Total 682.5 ml 320 ml 260 ml Output Total 457 ml 540 ml 160 ml Balance 225.5 ml -220 ml 100 ml Exam Neck: non-tender, supple Respiratory: clear to auscultation, normal air movement Cardiovascular: nl pulses, regular rate and rhythm Gastrointestinal: nl liver, spleen, non-tender, soft Results Result Diagram: 11/07/16 0553 11/07/16 0553 SHLOMO HUGHES MD Nov 07, 2016 10:57
[2016-11-07] MEDS: SOD CHLORIDE 0.9% 1,000 ML IV SCH (19:57)
[2016-11-07] MEDS: ATORVASTATIN 40 MG TAB PO SCH (20:33)
[2016-11-07] MEDS: HYDROCODONE/APAP (5/325) TAB PO PRN (20:33)
[2016-11-07] MEDS: INSULIN GLARGINE [LANtus] 3 ML PEN SC SCH (20:41)
[2016-11-08] VITALS (22 sets, daily range): BP systolic 96–122; BP diastolic 52–74; PULSE 66–93; RESP 12–25
[2016-11-08] MEDS: ACCU-CHEK XX SCH ×2 (02:00)
--- NOTE | 2016-11-08 07:30 | RADRPT ---
PROCEDURE: XR Chest. CLINICAL INDICATION: Shortness of breath. Postop. TECHNIQUE: Single frontal view. COMPARISON: 11/07/2016. FINDINGS: There are sternal wires and mediastinal clips. 2 mediastinal drains and bilateral chest tubes are al so noted. There is mild left basilar atelectasis. The lungs are otherwise clear. The heart size is normal. There is no pleural effusion. There is no pneumothorax. IMPRESSION: 1. Postoperative changes. 2. Mild left basilar atelectasis. 3. No change from 11/07/2016. RPTAT: QQ .Juma Ryder MD, MD Date Time Electronically viewed and signed by .Juma Ryder MD, MD on 11/08/2016 07:29 .R/
[2016-11-08] MEDS: INSULIN ASPART [NOVOLOG] 3 ML PEN SC SCH ×5 (07:35→20:51)
[2016-11-08] MEDS: METOPROLOL 25 MG TAB PO SCH ×2 (08:32→20:51)
[2016-11-08 08:39] LABS: BASOPHILS % 0.3 % (0.0-2.0); EOSINOPHILS # 0.1 10^3/ul (0.0-0.5); EOSINOPHILS % 1.5 % (0.0-7.0); HEMATOCRIT 28.2 % (42.0-52.0); HEMOGLOBIN 8.9 g/dl (14.0-18.0); LYMPHOCYTES # 1.3 10^3/ul (0.8-2.9); LYMPHOCYTES % 13.4 % (15.0-51.0); MEAN CORPUSCULAR HEMOGLOBIN 28.6 pg (29.0-33.0); MEAN CORPUSCULAR HGB CONC 31.6 g/dl (32.0-37.0); MEAN CORPUSCULAR VOLUME 90.7 fl (82.0-101.0); MEAN PLATELET VOLUME 10.9 fl (7.4-10.4); MONOCYTE # 0.9 10^3/ul (0.3-0.9); MONOCYTES % 9.7 % (0.0-11.0); NEUTROPHIL # 6.9 10^3/ul (1.6-7.5); NUCLEATED RED BLOOD CELLS # 0.2 10^3/ul (0.0-0.0); NUCLEATED RED BLOOD CELLS% 1.8 /100WBC (0.0-0.0); PLATELET COUNT 135 10^3/UL (140-415); RED BLOOD COUNT 3.11 10^6/ul (4.70-6.10); RED CELL DISTRIBUTION WIDTH 13.5 % (11.5-14.5); WHITE BLOOD COUNT 9.4 10^3/ul (4.8-10.8)
--- NOTE | 2016-11-08 08:59 | CONS ---
Date/Time of Note Date/Time of Note DATE: 11/08/16 TIME: 08:57 Consult Date/Type/Reason Admit Date/Time Oct 31, 2016 at 11:41 Type of Consultation: CARDIOLOGY Subjective CARDIOLOGY / critical care FOLLOW UP NOTE (covering for DR WATSON) . Discussed with the staff and rhythm was reviewed. pt remains in NSR. NO AFIB pt s/p CABG 11/04/16. HE is extubated he is off of pressors now and in ICU. pt remains in NSR/ sinus tachy. he still has chest tubes in place. HE has mild chest wall tenderness only Subjective: General: NO acute distress HEENT: NC/AT. pupils are equal. round. NECK:. no stridor. CV: RRR. systolic murmur; no gallop or rubs. PULM: no wheezing or rhonchi. chest : s/p sternotomy. s/p multiple chest tubes in place. GI: SOFT, NT, ND, no rebound or guarding Extremity: trace B/L LE edema. no clubbing. neuro: awake and alert. responds appropriately Psych: calm and pleasant rectal: deferred ECG NSR ST elevation c/w pericarditis. CXR 11/05/16: IMPRESSION: 1. Mild bibasilar atelectasis. Overall, no significant interval change. 2. Expected post cardiac surgery changes. 3. Mild cardiomegaly and aortic atherosclerosis. 4. Tubes and lines, as described above. CXR 11/06: 1. Cardiomegaly and minimal vascular congestion. 2. Sternotomy wires and and chest U/drainage catheters in place. 3. The endotracheal tube and [place] catheter have been removed with the right IJ the sheath remaining in place. Objective Vital Signs Date Time Temp Pulse Resp B/P Pulse Ox O2 Delivery O2 Flow Rate FiO2 11/08/16 08:00 79 13 101/62 100 Nasal Cannula 11/08/16 04:00 97.6 11/07/16 23:50 2.0 11/07/16 06:11 27 Intake and Output 11/07/16 11/07/16 11/08/16 15:00 23:00 07:00 Intake Total 610 ml 400 ml Output Total 540 ml 70 ml 130 ml Balance 70 ml 330 ml -130 ml Results/Medications Result Diagram: 11/08/16 0800 11/07/16 0553 Results 24 hrs Laboratory Tests Test 11/07/16 12:00 11/07/16 17:31 11/07/16 20:32 11/08/16 08:00 Bedside Glucose 122 100 120 White Blood Count 9.4 Red Blood Count 3.11 L Hemoglobin 8.9 L Hematocrit 28.2 L Mean Corpuscular Volume 90.7 Mean Corpuscular Hemoglobin 28.6 L Mean Corpuscular Hemoglobin Concent 31.6 L Red Cell Distribution Width 13.5 Platelet Count 135 #L Mean Platelet Volume 10.9 H Neutrophils % 74.0 Lymphocytes % 13.4 L Monocytes % 9.7 Eosinophils % 1.5 Basophils % 0.3 Nucleated Red Blood Cells % 1.8 H Neutrophils # 6.9 Lymphocytes # 1.3 Monocytes # 0.9 Eosinophils # 0.1 Basophils # 0.0 Nucleated Red Blood Cells # 0.2 H Test 11/08/16 08:07 Bedside Glucose 70 Medications Current Medications Atorvastatin Calcium (Lipitor) 40 mg HS PO Last administered on 11/07/16 20:33 ; Admin Dose 40 MG; Start 10/31/16 at 21:00 Metoprolol Tartrate (Lopressor) 25 mg BID PO Last administered on 11/07/16 20: 35; Admin Dose 25 MG; Start 10/31/16 at 21:00 Aspirin (Aspirin) 81 mg DAILY PO Last administered on 11/07/16 08:26; Admin Dose 81 MG; Start 11/01/16 at 09:00 Famotidine (Pepcid) 20 mg DAILY PO Last administered on 11/07/16 08:26; Admin Dose 20 MG; Start 11/03/16 at 18:00 Acetaminophen (Tylenol Tab) 650 mg Q6H PRN PO PAIN AND OR ELEVATED TEMP; Start 11/03/16 at 17:00 Ondansetron HCl (Zofran Inj) 4 mg Q6H PRN IV NAUSEA AND/OR VOMITING Last administered on 11/07/16 22:14; Admin Dose 4 MG; Start 11/03/16 at 17:00 Acetaminophen/ Hydrocodone Bitart ([place] (5/325)) 1 tab Q6H PRN PO PAIN LEVEL 8 -10 Last administered on 11/07/16 20:33; Admin Dose 1 TAB; Start 11/03/16 at 17 :00 Hydromorphone HCl (Dilaudid) 0.2 mg Q15M PRN IV PAIN LEVEL 1-5 Last administered on 11/07/16 22:15; Admin Dose 0.2 MG; Start 11/04/16 at 22:00 Hydromorphone HCl (Dilaudid) 0.4 mg Q15M PRN IV PAIN LEVEL 6-10 Last administered on 11/07/16 04:15; Admin Dose 0.4 MG; Start 11/04/16 at 22:00 Hydromorphone HCl (Dilaudid) 0.2 mg Q1H PRN IV PAIN LEVEL 1-5; Start 11/04/16 at 22:00 Hydromorphone HCl (Dilaudid) 0.4 mg Q1H PRN IV PAIN LEVEL 6-10; Start 11/04/16 at 22:00 Acetaminophen 650 mg 650 mg Q3H PRN [place] ELEVATED TEMPERATURE; Start 11/04/16 at 22:00 Magnesium Sulfate/ Dextrose (Magnesium Sulfate 1 Gm/D5W) 100 ml @ 100 mls/hr PRN PRN IVPB PENDING LAB VALUE Last administered on 11/05/16 06:21; Admin Dose 100 MLS/HR; Start 11/04/16 at 23:30 Diagnostic Test (Pha) (Accu-Chek) 1 ea 02 XX ; Start 11/07/16 at 02:00 Insulin Glargine (Lantus) 10 unit HS SC Last administered on 11/07/16 20:41; Admin Dose 10 UNIT; Start 11/06/16 at 21:00 Diagnostic Test (Pha) (Accu-Chek) 1 ea 02 XX ; Start 11/07/16 at 02:00 Miscellaneous Information 1 ea NOTE XX ; Start 11/06/16 at 14:30 Glucose (Glutose) 15 gm Q15M PRN PO DECREASED GLUCOSE; Start 11/06/16 at 14:30 Glucose (Glutose) 22.5 gm Q15M PRN PO DECREASED GLUCOSE; Start 11/06/16 at 14: 30 Dextrose (D50w Syringe) 25 ml Q15M PRN IV DECREASED GLUCOSE; Start 11/06/16 at 14:30 Dextrose (D50w Syringe) 50 ml Q15M PRN IV DECREASED GLUCOSE; Start 11/06/16 at 14:30 Glucagon (Glucagen) 1 mg Q15M PRN IM DECREASED GLUCOSE; Start 11/06/16 at 14:30 Glucose (Glutose) 15 gm Q15M PRN BUCCAL DECREASED GLUCOSE; Start 11/06/16 at 14 :30 Enoxaparin Sodium (Lovenox) 40 mg DAILY SC Last administered on 11/07/16t 09:58 ; Admin Dose 40 MG; Start 11/07/16 at 09:00 Assessment/Plan Chief Complaint/Hosp Course Assessment: severe Obstructive coronary artery disease with left main involvement and Positive stress echo: s/p CABG Abnormal EKG s/p post op hypoxemic resp failure; Extubated now hx of HTN: anemia DM: on insulin Recommendation/plan: cont post op care off of pressors will monitor. cont chest tubes for now to be managed/ removed per CT surgery. cont ASA STATIN betablocker as tolerated. monitor H/H and transfuse prn cont ICU care more than 36 min of critical care time was spent in management and treatment of this critically ill pt, excluding any procedures THANK YOU BEBETO JAMES MD [facility] Problems: BEBETO JAMES MD Nov 08, 2016 08:59
[2016-11-08 09:02] LABS: CALCIUM 8.6 mg/dl (8.4-10.2); CREATININE 0.71 mg/dl (0.61-1.24); PHOSPHORUS 3.2 mg/dl (2.5-4.9); POTASSIUM 4.1 mmol/L (3.5-5.1)
[2016-11-08] MEDS: FAMOTIDINE 20 MG TAB PO SCH (09:04)
[2016-11-08] MEDS: ASPIRIN 81 MG TAB PO SCH (09:04)
[2016-11-08] MEDS: ENOXAPARIN 40 MG/0.4 ML SYG SC SCH (09:05)
[2016-11-08] MEDS: HYDROmorphONE 1 MG/ML SYG IV PRN ×3 (11:30→21:57)
--- NOTE | 2016-11-08 11:44 | PN ---
Date/Time of Note Date/Time of Note DATE: 11/08/16 TIME: 11:35 Assessment/Plan Lines/Catheters IV Catheter Type (from Nrsg): Saline Lock Subjective 24 Hr Interval Summary Constitutional: ambulates, no complaints Feeding: advancing diet Pain Control: well controlled Detailed Summary Respiratory: other, No shortness of breath Cardiovascular: no complaints Exam/Review of Systems Vital Signs Vitals Vital Signs Date Time Temp Pulse Resp B/P Pulse Ox O2 Delivery O2 Flow Rate FiO2 11/08/16 10:00 82 20 111/68 100 Nasal Cannula 11/08/16 08:00 98.4 11/07/16 23:50 2.0 11/07/16 06:11 27 Intake and Output 11/07/16 11/07/16 11/08/16 15:00 23:00 07:00 Intake Total 610 ml 400 ml Output Total 540 ml 70 ml 130 ml Balance 70 ml 330 ml -130 ml Exam Respiratory: clear to auscultation Cardiovascular: other (Incision clean, no drainage. Chest tubes with minimal drainage) Musculoskeletal: No swelling Results Result Diagram: 11/08/16 0811/08/16 0800 Procedures Procedures Chest tubes removed AVI VIDALES MD Nov 08, 2016 11:44
--- NOTE | 2016-11-08 13:34 | PN ---
Date/Time of Note Date/Time of Note DATE: 11/08/16 TIME: 13:32 Assessment/Plan VTE Prophylaxis VTE Prophylaxis Intervention: LMWH Lines/Catheters [facility] Peripheral IV Urinary Cath still in place: No Assessment/Plan Chief Complaint/Hosp Course Assessment/Plan: 61 yo M with severe CAD admitted for CABG eval after LHC revealed sig L main disease, POD # 4 CABG PLAN: 1. CV: cards/CT surg following-status post cardiac bypass surgery yesterday postop day # 4 (see details below) for severe CAD -follow-up post operation recommendations -f/u rec's by cardiothoracic surgery team, follow-up their recommendations and CV recommendations -follow pulmonary recommendations. -Continue bb - for mild thrombocytopenia, monitor for any signs of bleeding (none presently) DVT prophx -contraindicated because of some mild thrombocytopenia Critical care time spent on patient care today equals 40 minutes. Problems: Subjective 24 Hr Interval Summary Free Text/Dictation Pt had CT's removed this AM. Worked with PT yesterday. Exam/Review of Systems Vital Signs Vitals Vital Signs Date Time Temp Pulse Resp B/P Pulse Ox O2 Delivery O2 Flow Rate FiO2 11/08/16 13:00 73 16 96/64 98 Room Air 11/08/16 08:00 2.0 11/08/16 08:00 98.4 11/07/16 06:11 27 Intake and Output 11/07/16 11/07/16 11/08/16 15:00 23:00 07:00 Intake Total 610 ml 400 ml Output Total 540 ml 70 ml 130 ml Balance 70 ml 330 ml -130 ml Exam No acute distress, sitting in chair in room S1, S2 heard resp nonlabored no gross abd distension no rashes no edema Results Result Diagram: 11/08/16 0800 11/08/16 0800 Results 24 hrs Laboratory Tests Test 11/07/16 17:31 11/07/16 20:32 11/08/16 08:00 11/08/16 08:07 Bedside Glucose 100 120 70 White Blood Count 9.4 Red Blood Count 3.11 L Hemoglobin 8.9 L Hematocrit 28.2 L Mean Corpuscular Volume 90.7 Mean Corpuscular Hemoglobin 28.6 L Mean Corpuscular Hemoglobin Concent 31.6 L Red Cell Distribution Width 13.5 Platelet Count 135 #L Mean Platelet Volume 10.9 H Neutrophils % 74.0 Lymphocytes % 13.4 L Monocytes % 9.7 Eosinophils % 1.5 Basophils % 0.3 Nucleated Red Blood Cells % 1.8 H Neutrophils # 6.9 Lymphocytes # 1.3 Monocytes # 0.9 Eosinophils # 0.1 Basophils # 0.0 Nucleated Red Blood Cells # 0.2 H Sodium Level 139 Potassium Level 4.1 Chloride Level 102 Carbon Dioxide Level 30 Anion Gap 11 Blood Urea Nitrogen 21 H Creatinine 0.71 Glucose Level 77 # Calcium Level 8.6 Phosphorus Level 3.2 Magnesium Level 2.0 Test 11/08/16 13:08 Bedside Glucose 93 Medications Medications Current Medications Atorvastatin Calcium (Lipitor) 40 mg HS PO Last administered on 11/07/16 20:33 ; Admin Dose 40 MG; Start 10/31/16 at 21:00 Metoprolol Tartrate (Lopressor) 25 mg BID PO Last administered on 11/07/16 20: 35; Admin Dose 25 MG; Start 10/31/16 at 21:00 Aspirin (Aspirin) 81 mg DAILY PO Last administered on 11/08/16 09:04; Admin Dose 81 MG; Start 11/01/16 at 09:00 Famotidine (Pepcid) 20 mg DAILY PO Last administered on 11/08/16 09:04; Admin Dose 20 MG; Start 11/03/16 at 18:00 Acetaminophen (Tylenol Tab) 650 mg Q6H PRN PO PAIN AND OR ELEVATED TEMP; Start 11/03/16 at 17:00 Ondansetron HCl (Zofran Inj) 4 mg Q6H PRN IV NAUSEA AND/OR VOMITING Last administered on 11/07/16 22:14; Admin Dose 4 MG; Start 11/03/16 at 17:00 Acetaminophen/ Hydrocodone Bitart ([place] (5/325)) 1 tab Q6H PRN PO PAIN LEVEL 8 -10 Last administered on 11/07/16 20:33; Admin Dose 1 TAB; Start 11/03/16 at 17 :00 Hydromorphone HCl (Dilaudid) 0.2 mg Q15M PRN IV PAIN LEVEL 1-5 Last administered on 11/07/16 22:15; Admin Dose 0.2 MG; Start 11/04/16 at 22:00 Hydromorphone HCl (Dilaudid) 0.4 mg Q15M PRN IV PAIN LEVEL 6-10 Last administered on 11/07/16 04:15; Admin Dose 0.4 MG; Start 11/04/16 at 22:00 Hydromorphone HCl (Dilaudid) 0.2 mg Q1H PRN IV PAIN LEVEL 1-5 Last administered on 11/08/16 11:30; Admin Dose 0.2 MG; Start 11/04/16 at 22:00 Hydromorphone HCl (Dilaudid) 0.4 mg Q1H PRN IV PAIN LEVEL 6-10; Start 11/04/16 at 22:00 Acetaminophen 650 mg 650 mg Q3H PRN [place] ELEVATED TEMPERATURE; Start 11/04/16 at 22:00 Magnesium Sulfate/ Dextrose (Magnesium Sulfate 1 Gm/D5W) 100 ml @ 100 mls/hr PRN PRN IVPB PENDING LAB VALUE Last administered on 11/05/16 06:21; Admin Dose 100 MLS/HR; Start 11/04/16 at 23:30 Diagnostic Test (Pha) (Accu-Chek) 1 ea 02 XX ; Start 11/07/16 at 02:00 Insulin Glargine (Lantus) 10 unit HS SC Last administered on 11/07/16 20:41; Admin Dose 10 UNIT; Start 11/06/16 at 21:00 Diagnostic Test (Pha) (Accu-Chek) 1 ea 02 XX ; Start 11/07/16 at 02:00 Miscellaneous Information 1 ea NOTE XX ; Start 11/06/16 at 14:30 Glucose (Glutose) 15 gm Q15M PRN PO DECREASED GLUCOSE; Start 11/06/16 at 14:30 Glucose (Glutose) 22.5 gm Q15M PRN PO DECREASED GLUCOSE; Start 11/06/16 at 14: 30 Dextrose (D50w Syringe) 25 ml Q15M PRN IV DECREASED GLUCOSE; Start 11/06/16 at 14:30 Dextrose (D50w Syringe) 50 ml Q15M PRN IV DECREASED GLUCOSE; Start 11/06/16 at 14:30 Glucagon (Glucagen) 1 mg Q15M PRN IM DECREASED GLUCOSE; Start 11/06/16 at 14:30 Glucose (Glutose) 15 gm Q15M PRN BUCCAL DECREASED GLUCOSE; Start 11/06/16 at 14 :30 Enoxaparin Sodium (Lovenox) 40 mg DAILY SC Last administered on 11/08/16t 09:05 ; Admin Dose 40 MG; Start 11/07/16 at 09:00 ANGELO FARMER Nov 08, 2016 13:34
--- NOTE | 2016-11-08 15:14 | CONS ---
Date/Time of Note Date/Time of Note DATE: 11/08/16 TIME: 15:12 Consult Date/Type/Reason Admit Date/Time Oct 31, 2016 at 11:41 Initial Consult Date 11/05/16 Type of Consultation: Pulm Subjective No events. On 2 L NC Objective Vital Signs Date Time Temp Pulse Resp B/P Pulse Ox O2 Delivery O2 Flow Rate FiO2 11/08/16 14:00 89 25 98/52 94 Room Air 11/08/16 08:00 2.0 11/08/16 08:00 98.4 11/07/16 06:11 27 Intake and Output 11/07/16 11/07/16 11/08/16 15:00 23:00 07:00 Intake Total 610 ml 400 ml Output Total 540 ml 70 ml 130 ml Balance 70 ml 330 ml -130 ml Exam HEENT: Neck supple; no JVD; no LAD CVS: RRR, S1 and S2 CHEST: Clear ABD: Soft, NT, + BS EXT: No c/c/e Results/Medications Result Diagram: 11/08/16 0800 11/08/16 0800 Results 24 hrs Laboratory Tests Test 11/07/16 17:31 11/07/16 20:32 11/08/16 08:00 11/08/16 08:07 Bedside Glucose 100 120 70 White Blood Count 9.4 Red Blood Count 3.11 L Hemoglobin 8.9 L Hematocrit 28.2 L Mean Corpuscular Volume 90.7 Mean Corpuscular Hemoglobin 28.6 L Mean Corpuscular Hemoglobin Concent 31.6 L Red Cell Distribution Width 13.5 Platelet Count 135 #L Mean Platelet Volume 10.9 H Neutrophils % 74.0 Lymphocytes % 13.4 L Monocytes % 9.7 Eosinophils % 1.5 Basophils % 0.3 Nucleated Red Blood Cells % 1.8 H Neutrophils # 6.9 Lymphocytes # 1.3 Monocytes # 0.9 Eosinophils # 0.1 Basophils # 0.0 Nucleated Red Blood Cells # 0.2 H Sodium Level 139 Potassium Level 4.1 Chloride Level 102 Carbon Dioxide Level 30 Anion Gap 11 Blood Urea Nitrogen 21 H Creatinine 0.71 Glucose Level 77 # Calcium Level 8.6 Phosphorus Level 3.2 Magnesium Level 2.0 Test 11/08/16 13:08 Bedside Glucose 93 Medications Current Medications Atorvastatin Calcium (Lipitor) 40 mg HS PO Last administered on 11/07/16t 20:33 ; Admin Dose 40 MG; Start 10/31/16 at 21:00 Metoprolol Tartrate (Lopressor) 25 mg BID PO Last administered on 11/07/16 20: 35; Admin Dose 25 MG; Start 10/31/16 at 21:00 Aspirin (Aspirin) 81 mg DAILY PO Last administered on 11/08/16 09:04; Admin Dose 81 MG; Start 11/01/16 at 09:00 Famotidine (Pepcid) 20 mg DAILY PO Last administered on 11/08/16 09:04; Admin Dose 20 MG; Start 11/03/16 at 18:00 Acetaminophen (Tylenol Tab) 650 mg Q6H PRN PO PAIN AND OR ELEVATED TEMP; Start 11/03/16 at 17:00 Ondansetron HCl (Zofran Inj) 4 mg Q6H PRN IV NAUSEA AND/OR VOMITING Last administered on 11/07/16 22:14; Admin Dose 4 MG; Start 11/03/16 at 17:00 Acetaminophen/ Hydrocodone Bitart ([place] (5/325)) 1 tab Q6H PRN PO PAIN LEVEL 8 -10 Last administered on 11/07/16 20:33; Admin Dose 1 TAB; Start 11/03/16 at 17 :00 Hydromorphone HCl (Dilaudid) 0.2 mg Q15M PRN IV PAIN LEVEL 1-5 Last administered on 11/07/16 22:15; Admin Dose 0.2 MG; Start 11/04/16 at 22:00 Hydromorphone HCl (Dilaudid) 0.4 mg Q15M PRN IV PAIN LEVEL 6-10 Last administered on 11/07/16 04:15; Admin Dose 0.4 MG; Start 11/04/16 at 22:00 Hydromorphone HCl (Dilaudid) 0.2 mg Q1H PRN IV PAIN LEVEL 1-5 Last administered on 11/08/16 11:30; Admin Dose 0.2 MG; Start 11/04/16 at 22:00 Hydromorphone HCl (Dilaudid) 0.4 mg Q1H PRN IV PAIN LEVEL 6-10; Start 11/04/16 at 22:00 Acetaminophen 650 mg 650 mg Q3H PRN [place] ELEVATED TEMPERATURE; Start 11/04/16 at 22:00 Magnesium Sulfate/ Dextrose (Magnesium Sulfate 1 Gm/D5W) 100 ml @ 100 mls/hr PRN PRN IVPB PENDING LAB VALUE Last administered on 11/05/16 06:21; Admin Dose 100 MLS/HR; Start 11/04/16 at 23:30 Diagnostic Test (Pha) (Accu-Chek) 1 ea 02 XX ; Start 11/07/16 at 02:00 Insulin Glargine (Lantus) 10 unit HS SC Last administered on 11/07/16 20:41; Admin Dose 10 UNIT; Start 11/06/16 at 21:00 Diagnostic Test (Pha) (Accu-Chek) 1 ea 02 XX ; Start 11/07/16 at 02:00 Miscellaneous Information 1 ea NOTE XX ; Start 11/06/16 at 14:30 Glucose (Glutose) 15 gm Q15M PRN PO DECREASED GLUCOSE; Start 11/06/16 at 14:30 Glucose (Glutose) 22.5 gm Q15M PRN PO DECREASED GLUCOSE; Start 11/06/16 at 14: 30 Dextrose (D50w Syringe) 25 ml Q15M PRN IV DECREASED GLUCOSE; Start 11/06/16 at 14:30 Dextrose (D50w Syringe) 50 ml Q15M PRN IV DECREASED GLUCOSE; Start 11/06/16 at 14:30 Glucagon (Glucagen) 1 mg Q15M PRN IM DECREASED GLUCOSE; Start 11/06/16 at 14:30 Glucose (Glutose) 15 gm Q15M PRN BUCCAL DECREASED GLUCOSE; Start 11/06/16 at 14 :30 Enoxaparin Sodium (Lovenox) 40 mg DAILY SC Last administered on 11/08/16 09:05 ; Admin Dose 40 MG; Start 11/07/16 at 09:00 Assessment/Plan Additional Assessment/Plan Doing well s/p CABG. Encourage early mobilization; aggressive ICS. VALERIA ROSE MD Nov 08, 2016 15:14
[2016-11-08] MEDS: ATORVASTATIN 40 MG TAB PO SCH (20:50)
[2016-11-08] MEDS ORDERED: INSULIN GLARGINE [LANtus] 3 ML PEN SC SCH (21:00)
[2016-11-09] VITALS (13 sets, daily range): BP systolic 99–122; BP diastolic 56–66; PULSE 58–78; RESP 16–20
[2016-11-09] MEDS: ACCU-CHEK XX SCH ×2 (02:00)
[2016-11-09] MEDS: INSULIN ASPART [NOVOLOG] 3 ML PEN SC SCH ×4 (07:55→21:00)
[2016-11-09] MEDS: FAMOTIDINE 20 MG TAB PO SCH (08:40)
[2016-11-09] MEDS: ASPIRIN 81 MG TAB PO SCH (08:41)
[2016-11-09] MEDS: METOPROLOL 25 MG TAB PO SCH ×2 (08:41→21:45)
[2016-11-09 09:07] LABS: BASOPHILS % 0.4 % (0.0-2.0); EOSINOPHILS # 0.3 10^3/ul (0.0-0.5); EOSINOPHILS % 3.1 % (0.0-7.0); HEMOGLOBIN 8.6 g/dl (14.0-18.0); LYMPHOCYTES # 1.4 10^3/ul (0.8-2.9); LYMPHOCYTES % 14.7 % (15.0-51.0); MEAN CORPUSCULAR HEMOGLOBIN 28.5 pg (29.0-33.0); MEAN CORPUSCULAR HGB CONC 31.9 g/dl (32.0-37.0); MEAN CORPUSCULAR VOLUME 89.4 fl (82.0-101.0); MEAN PLATELET VOLUME 10.3 fl (7.4-10.4); MONOCYTE # 1.1 10^3/ul (0.3-0.9); MONOCYTES % 11.8 % (0.0-11.0); NEUTROPHIL # 6.5 10^3/ul (1.6-7.5); NEUTROPHILS % 68.2 % (39.0-77.0); NUCLEATED RED BLOOD CELLS # 0.6 10^3/ul (0.0-0.0); NUCLEATED RED BLOOD CELLS% 5.8 /100WBC (0.0-0.0); PLATELET COUNT 166 10^3/UL (140-415); RED BLOOD COUNT 3.02 10^6/ul (4.70-6.10); RED CELL DISTRIBUTION WIDTH 13.6 % (11.5-14.5); WHITE BLOOD COUNT 9.5 10^3/ul (4.8-10.8)
[2016-11-09] MEDS: ENOXAPARIN 40 MG/0.4 ML SYG SC SCH (09:15)
[2016-11-09 09:43] LABS: CALCIUM 8.4 mg/dl (8.4-10.2); CREATININE 0.79 mg/dl (0.61-1.24); POTASSIUM 4.2 mmol/L (3.5-5.1)
--- NOTE | 2016-11-09 11:10 | PN ---
Date/Time of Note Date/Time of Note DATE: 11/09/16 TIME: 11:06 Assessment/Plan VTE Prophylaxis VTE Prophylaxis Intervention: LMWH Lines/Catheters [facility] ([facility] Saline Lock Urinary Cath still in place: No Assessment/Plan Chief Complaint/Hosp Course Assessment/Plan: 61 yo M with severe CAD admitted for CABG eval after LHC revealed sig L main disease, POD # 5 CABG PLAN: 1. CV: cards/CT surg following-status post cardiac bypass surgery yesterday postop day # 5 for severe CAD, recovering well, working with physical therapy -follow-up post operation recommendations -f/u rec's by cardiothoracic surgery team, follow-up their recommendations and CV recommendations -follow pulmonary recommendations. -Continue bb, aspirin, statin - for prior elevated sugars, fingersticks stable the last 48 hours, A1c 5.5, for now continue low-dose subcu insulin, likely will not need any insulin upon discharge DVT prophx - lmwh Problems: Subjective 24 Hr Interval Summary Free Text/Dictation Patient out of intensive care now, sitting in chair, no acute events overnight. Exam/Review of Systems Vital Signs Vitals Vital Signs Date Time Temp Pulse Resp B/P Pulse Ox O2 Delivery O2 Flow Rate FiO2 11/09/16 08:20 66 11/09/16 07:41 97.7 18 122/57 96 11/08/16 17:58 Room Air 11/08/16 17:24 21 11/08/16 08:00 2.0 Intake and Output 11/08/16 11/08/16 11/09/16 15:00 23:00 07:00 Intake Total 480 ml Output Total 0 ml Balance 480 ml Exam No acute distress, sitting in chair in room S1, S2 heard resp nonlabored no gross abd distension no rashes no edema Results Result Diagram: 11/09/16 0732 11/09/16 0732 Results 24 hrs Laboratory Tests Test 11/08/16 13:08 11/08/16 17:16 11/08/16 17:36 11/08/16 20:46 Bedside Glucose 93 64 L 84 109 Test 11/09/16 07:32 11/09/16 08:38 White Blood Count 9.5 Red Blood Count 3.02 L Hemoglobin 8.6 L Hematocrit 27.0 L Mean Corpuscular Volume 89.4 Mean Corpuscular Hemoglobin 28.5 L Mean Corpuscular Hemoglobin Concent 31.9 L Red Cell Distribution Width 13.6 Platelet Count 166 # Mean Platelet Volume 10.3 Neutrophils % 68.2 Lymphocytes % 14.7 L Monocytes % 11.8 H Eosinophils % 3.1 Basophils % 0.4 Nucleated Red Blood Cells % 5.8 H Neutrophils # 6.5 Lymphocytes # 1.4 Monocytes # 1.1 H Eosinophils # 0.3 Basophils # 0.0 Nucleated Red Blood Cells # 0.6 H Sodium Level 138 Potassium Level 4.2 Chloride Level 103 Carbon Dioxide Level 31 Anion Gap 8 Blood Urea Nitrogen 17 Creatinine 0.79 Glucose Level 81 Calcium Level 8.4 Phosphorus Level 3.0 Magnesium Level 2.0 Bedside Glucose 96 Medications Medications Current Medications Atorvastatin Calcium (Lipitor) 40 mg HS PO Last administered on 11/08/16 20:50 ; Admin Dose 40 MG; Start 10/31/16 at 21:00 Metoprolol Tartrate (Lopressor) 25 mg BID PO Last administered on 11/09/16 08: 41; Admin Dose 25 MG; Start 10/31/16 at 21:00 Aspirin (Aspirin) 81 mg DAILY PO Last administered on 11/09/16 08:41; Admin Dose 81 MG; Start 11/01/16 at 09:00 Famotidine (Pepcid) 20 mg DAILY PO Last administered on 11/09/16 08:40; Admin Dose 20 MG; Start 11/03/16 at 18:00 Acetaminophen (Tylenol Tab) 650 mg Q6H PRN PO PAIN AND OR ELEVATED TEMP; Start 11/03/16 at 17:00 Ondansetron HCl (Zofran Inj) 4 mg Q6H PRN IV NAUSEA AND/OR VOMITING Last administered on 11/07/16 22:14; Admin Dose 4 MG; Start 11/03/16 at 17:00 Acetaminophen/ Hydrocodone Bitart ([employer] (5/325)) 1 tab Q6H PRN PO PAIN LEVEL 8 -10 Last administered on 11/07/16 20:33; Admin Dose 1 TAB; Start 11/03/16 at 17 :00 Hydromorphone HCl (Dilaudid) 0.2 mg Q15M PRN IV PAIN LEVEL 1-5 Last administered on 11/07/16 22:15; Admin Dose 0.2 MG; Start 11/04/16 at 22:00 Hydromorphone HCl (Dilaudid) 0.4 mg Q15M PRN IV PAIN LEVEL 6-10 Last administered on 11/07/16 04:15; Admin Dose 0.4 MG; Start 11/04/16 at 22:00 Hydromorphone HCl (Dilaudid) 0.2 mg Q1H PRN IV PAIN LEVEL 1-5 Last administered on 11/08/16 21:57; Admin Dose 0.2 MG; Start 11/04/16 at 22:00 Hydromorphone HCl (Dilaudid) 0.4 mg Q1H PRN IV PAIN LEVEL 6-10; Start 11/04/16 at 22:00 Acetaminophen 650 mg 650 mg Q3H PRN [place] ELEVATED TEMPERATURE; Start 11/04/16 at 22:00 Magnesium Sulfate/ Dextrose (Magnesium Sulfate 1 Gm/D5W) 100 ml @ 100 mls/hr PRN PRN IVPB PENDING LAB VALUE Last administered on 11/05/16 06:21; Admin Dose 100 MLS/HR; Start 11/04/16 at 23:30 Diagnostic Test (Pha) (Accu-Chek) 1 ea 02 XX ; Start 11/07/16 at 02:00 Diagnostic Test (Pha) (Accu-Chek) 1 ea 02 XX ; Start 11/07/16 at 02:00 Miscellaneous Information 1 ea NOTE XX ; Start 11/06/16 at 14:30 Glucose (Glutose) 15 gm Q15M PRN PO DECREASED GLUCOSE; Start 11/06/16 at 14:30 Glucose (Glutose) 22.5 gm Q15M PRN PO DECREASED GLUCOSE; Start 11/06/16 at 14: 30 Dextrose (D50w Syringe) 25 ml Q15M PRN IV DECREASED GLUCOSE; Start 11/06/16 at 14:30 Dextrose (D50w Syringe) 50 ml Q15M PRN IV DECREASED GLUCOSE; Start 11/06/16 at 14:30 Glucagon (Glucagen) 1 mg Q15M PRN IM DECREASED GLUCOSE; Start 11/06/16 at 14:30 Glucose (Glutose) 15 gm Q15M PRN BUCCAL DECREASED GLUCOSE; Start 11/06/16 at 14 :30 Enoxaparin Sodium (Lovenox) 40 mg DAILY SC Last administered on 11/09/16 09:15 ; Admin Dose 40 MG; Start 11/07/16 at 09:00 Insulin Glargine (Lantus) 8 unit HS SC Last administered on 11/08/16t 21:12; Admin Dose 8 UNIT; Start 11/08/16 at 21:00 ANGELO FARMER Nov 09, 2016 11:10
--- NOTE | 2016-11-09 13:23 | CONS ---
Date/Time of Note Date/Time of Note DATE: 11/09/16 TIME: 13:21 Consult Date/Type/Reason Admit Date/Time Oct 31, 2016 at 11:41 Type of Consultation: CARDIOLOGY Subjective CARDIOLOGY FOLLOW UP NOTE (covering for DR WATSON) . Discussed with the staff and rhythm was reviewed. pt remains in NSR. NO AFIB pt s/p CABG 11/04/16. HE is extubated pt remains in NSR/ sinus tachy. his chest tubes removed 11/08. HE has mild chest wall tenderness only Subjective: General: NO acute distress HEENT: NC/AT. pupils are equal. round. NECK:. no stridor. CV: RRR. systolic murmur; no gallop or rubs. PULM: no wheezing or rhonchi. chest : s/p sternotomy.. GI: SOFT, NT, ND, no rebound or guarding Extremity: trace B/L LE edema. no clubbing. neuro: awake and alert. responds appropriately Psych: calm and pleasant rectal: deferred Objective Vital Signs Date Time Temp Pulse Resp B/P Pulse Ox O2 Delivery O2 Flow Rate FiO2 11/09/16 12:41 63 11/09/16 11:05 98.1 19 107/62 97 11/08/16 17:58 Room Air 11/08/16 17:24 21 11/08/16 08:00 2.0 Intake and Output 11/08/16 11/08/16 11/09/16 15:00 23:00 07:00 Intake Total 480 ml Output Total 0 ml Balance 480 ml Results/Medications Result Diagram: 11/09/16 0732 11/09/16 0732 Results 24 hrs Laboratory Tests Test 11/08/16 17:16 11/08/16 17:36 11/08/16 20:46 11/09/16 07:32 Bedside Glucose 64 L 84 109 White Blood Count 9.5 Red Blood Count 3.02 L Hemoglobin 8.6 L Hematocrit 27.0 L Mean Corpuscular Volume 89.4 Mean Corpuscular Hemoglobin 28.5 L Mean Corpuscular Hemoglobin Concent 31.9 L Red Cell Distribution Width 13.6 Platelet Count 166 # Mean Platelet Volume 10.3 Neutrophils % 68.2 Lymphocytes % 14.7 L Monocytes % 11.8 H Eosinophils % 3.1 Basophils % 0.4 Nucleated Red Blood Cells % 5.8 H Neutrophils # 6.5 Lymphocytes # 1.4 Monocytes # 1.1 H Eosinophils # 0.3 Basophils # 0.0 Nucleated Red Blood Cells # 0.6 H Sodium Level 138 Potassium Level 4.2 Chloride Level 103 Carbon Dioxide Level 31 Anion Gap 8 Blood Urea Nitrogen 17 Creatinine 0.79 Glucose Level 81 Calcium Level 8.4 Phosphorus Level 3.0 Magnesium Level 2.0 Test 11/09/16 08:38 11/09/16 11:40 Bedside Glucose 96 91 Medications Current Medications Atorvastatin Calcium (Lipitor) 40 mg HS PO Last administered on 11/08/16 20:50 ; Admin Dose 40 MG; Start 10/31/16 at 21:00 Metoprolol Tartrate (Lopressor) 25 mg BID PO Last administered on 11/09/16 08: 41; Admin Dose 25 MG; Start 10/31/16 at 21:00 Aspirin (Aspirin) 81 mg DAILY PO Last administered on 11/09/16 08:41; Admin Dose 81 MG; Start 11/01/16 at 09:00 Famotidine (Pepcid) 20 mg DAILY PO Last administered on 11/09/16 08:40; Admin Dose 20 MG; Start 11/03/16 at 18:00 Acetaminophen (Tylenol Tab) 650 mg Q6H PRN PO PAIN AND OR ELEVATED TEMP; Start 11/03/16 at 17:00 Ondansetron HCl (Zofran Inj) 4 mg Q6H PRN IV NAUSEA AND/OR VOMITING Last administered on 11/07/16 22:14; Admin Dose 4 MG; Start 11/03/16 at 17:00 Acetaminophen/ Hydrocodone Bitart ([place] (5/325)) 1 tab Q6H PRN PO PAIN LEVEL 8 -10 Last administered on 11/07/16 20:33; Admin Dose 1 TAB; Start 11/03/16 at 17 :00 Hydromorphone HCl (Dilaudid) 0.2 mg Q15M PRN IV PAIN LEVEL 1-5 Last administered on 11/07/16 22:15; Admin Dose 0.2 MG; Start 11/04/16 at 22:00 Hydromorphone HCl (Dilaudid) 0.4 mg Q15M PRN IV PAIN LEVEL 6-10 Last administered on 11/07/16 04:15; Admin Dose 0.4 MG; Start 11/04/16 at 22:00 Hydromorphone HCl (Dilaudid) 0.2 mg Q1H PRN IV PAIN LEVEL 1-5 Last administered on 11/08/16 21:57; Admin Dose 0.2 MG; Start 11/04/16 at 22:00 Hydromorphone HCl (Dilaudid) 0.4 mg Q1H PRN IV PAIN LEVEL 6-10; Start 11/04/16 at 22:00 Acetaminophen 650 mg 650 mg Q3H PRN [place] ELEVATED TEMPERATURE; Start 11/04/16 at 22:00 Magnesium Sulfate/ Dextrose (Magnesium Sulfate 1 Gm/D5W) 100 ml @ 100 mls/hr PRN PRN IVPB PENDING LAB VALUE Last administered on 11/05/16 06:21; Admin Dose 100 MLS/HR; Start 11/04/16 at 23:30 Diagnostic Test (Pha) (Accu-Chek) 1 ea 02 XX ; Start 11/07/16 at 02:00 Diagnostic Test (Pha) (Accu-Chek) 1 ea 02 XX ; Start 11/07/16 at 02:00 Miscellaneous Information 1 ea NOTE XX ; Start 11/06/16 at 14:30 Glucose (Glutose) 15 gm Q15M PRN PO DECREASED GLUCOSE; Start 11/06/16 at 14:30 Glucose (Glutose) 22.5 gm Q15M PRN PO DECREASED GLUCOSE; Start 11/06/16 at 14: 30 Dextrose (D50w Syringe) 25 ml Q15M PRN IV DECREASED GLUCOSE; Start 11/06/16 at 14:30 Dextrose (D50w Syringe) 50 ml Q15M PRN IV DECREASED GLUCOSE; Start 11/06/16 at 14:30 Glucagon (Glucagen) 1 mg Q15M PRN IM DECREASED GLUCOSE; Start 11/06/16 at 14:30 Glucose (Glutose) 15 gm Q15M PRN BUCCAL DECREASED GLUCOSE; Start 11/06/16 at 14 :30 Enoxaparin Sodium (Lovenox) 40 mg DAILY SC Last administered on 11/09/16 09:15 ; Admin Dose 40 MG; Start 11/07/16 at 09:00 Insulin Glargine (Lantus) 5 unit HS SC ; Start 11/09/16 at 21:00 Assessment/Plan Chief Complaint/Hosp Course Assessment: severe Obstructive coronary artery disease with left main involvement and Positive stress echo: s/p CABG Abnormal EKG s/p post op hypoxemic resp failure; Extubated now hx of HTN: anemia DM: Recommendation/plan: cont post op care off of pressors will monitor. cont chest tubes were removed per CT surgery. cont ASA STATIN betablocker as tolerated. monitor H/H and transfuse prn THANK YOU BEBETO JAMES MD [facility] Problems: BEBETO JAMES MD Nov 09, 2016 13:22
--- NOTE | 2016-11-09 17:22 | CONS ---
Date/Time of Note Date/Time of Note DATE: 11/09/16 TIME: 17:20 Consult Date/Type/Reason Admit Date/Time Oct 31, 2016 at 11:41 Initial Consult Date 11/05/16 Type of Consultation: pulm Subjective no events. doing well.. Objective Vital Signs Date Time Temp Pulse Resp B/P Pulse Ox O2 Delivery O2 Flow Rate FiO2 11/09/16 16:43 78 11/09/16 15:52 98.3 19 106/59 100 11/08/16 17:58 Room Air 11/08/16 17:24 21 11/08/16 08:00 2.0 Intake and Output 11/08/16 11/08/16 11/09/16 15:00 23:00 07:00 Intake Total 480 ml Output Total 0 ml Balance 480 ml Exam HEENT: Neck supple; no JVD; no LAD CVS: RRR, S1 and S2 CHEST: Clear ABD: Soft, NT, + BS EXT: No c/c/e Results/Medications Result Diagram: 11/09/16 0732 11/09/16 0732 Results 24 hrs Laboratory Tests Test 11/08/16 17:36 11/08/16 20:46 11/09/16 07:32 11/09/16 08:38 Bedside Glucose 84 109 96 White Blood Count 9.5 Red Blood Count 3.02 L Hemoglobin 8.6 L Hematocrit 27.0 L Mean Corpuscular Volume 89.4 Mean Corpuscular Hemoglobin 28.5 L Mean Corpuscular Hemoglobin Concent 31.9 L Red Cell Distribution Width 13.6 Platelet Count 166 # Mean Platelet Volume 10.3 Neutrophils % 68.2 Lymphocytes % 14.7 L Monocytes % 11.8 H Eosinophils % 3.1 Basophils % 0.4 Nucleated Red Blood Cells % 5.8 H Neutrophils # 6.5 Lymphocytes # 1.4 Monocytes # 1.1 H Eosinophils # 0.3 Basophils # 0.0 Nucleated Red Blood Cells # 0.6 H Sodium Level 138 Potassium Level 4.2 Chloride Level 103 Carbon Dioxide Level 31 Anion Gap 8 Blood Urea Nitrogen 17 Creatinine 0.79 Glucose Level 81 Calcium Level 8.4 Phosphorus Level 3.0 Magnesium Level 2.0 Test 11/09/16 11:40 Bedside Glucose 91 Medications Current Medications Atorvastatin Calcium (Lipitor) 40 mg HS PO Last administered on 11/08/16t 20:50 ; Admin Dose 40 MG; Start 10/31/16 at 21:00 Metoprolol Tartrate (Lopressor) 25 mg BID PO Last administered on 11/09/16 08: 41; Admin Dose 25 MG; Start 10/31/16 at 21:00 Aspirin (Aspirin) 81 mg DAILY PO Last administered on 11/09/16 08:41; Admin Dose 81 MG; Start 11/01/16 at 09:00 Famotidine (Pepcid) 20 mg DAILY PO Last administered on 11/09/16 08:40; Admin Dose 20 MG; Start 11/03/16 at 18:00 Acetaminophen (Tylenol Tab) 650 mg Q6H PRN PO PAIN AND OR ELEVATED TEMP; Start 11/03/16 at 17:00 Ondansetron HCl (Zofran Inj) 4 mg Q6H PRN IV NAUSEA AND/OR VOMITING Last administered on 11/07/16 22:14; Admin Dose 4 MG; Start 11/03/16 at 17:00 Acetaminophen/ Hydrocodone Bitart ([place] (5/325)) 1 tab Q6H PRN PO PAIN LEVEL 8 -10 Last administered on 11/07/16 20:33; Admin Dose 1 TAB; Start 11/03/16 at 17 :00 Hydromorphone HCl (Dilaudid) 0.2 mg Q15M PRN IV PAIN LEVEL 1-5 Last administered on 11/07/16 22:15; Admin Dose 0.2 MG; Start 11/04/16 at 22:00 Hydromorphone HCl (Dilaudid) 0.4 mg Q15M PRN IV PAIN LEVEL 6-10 Last administered on 11/07/16 04:15; Admin Dose 0.4 MG; Start 11/04/16 at 22:00 Hydromorphone HCl (Dilaudid) 0.2 mg Q1H PRN IV PAIN LEVEL 1-5 Last administered on 11/08/16 21:57; Admin Dose 0.2 MG; Start 11/04/16 at 22:00 Hydromorphone HCl (Dilaudid) 0.4 mg Q1H PRN IV PAIN LEVEL 6-10; Start 11/04/16 at 22:00 Acetaminophen 650 mg 650 mg Q3H PRN [place] ELEVATED TEMPERATURE; Start 11/04/16 at 22:00 Magnesium Sulfate/ Dextrose (Magnesium Sulfate 1 Gm/D5W) 100 ml @ 100 mls/hr PRN PRN IVPB PENDING LAB VALUE Last administered on 11/05/16 06:21; Admin Dose 100 MLS/HR; Start 11/04/16 at 23:30 Diagnostic Test (Pha) (Accu-Chek) 1 ea 02 XX ; Start 11/07/16 at 02:00 Diagnostic Test (Pha) (Accu-Chek) 1 ea 02 XX ; Start 11/07/16 at 02:00 Miscellaneous Information 1 ea NOTE XX ; Start 11/06/16 at 14:30 Glucose (Glutose) 15 gm Q15M PRN PO DECREASED GLUCOSE; Start 11/06/16 at 14:30 Glucose (Glutose) 22.5 gm Q15M PRN PO DECREASED GLUCOSE; Start 11/06/16 at 14: 30 Dextrose (D50w Syringe) 25 ml Q15M PRN IV DECREASED GLUCOSE; Start 11/06/16 at 14:30 Dextrose (D50w Syringe) 50 ml Q15M PRN IV DECREASED GLUCOSE; Start 11/06/16 at 14:30 Glucagon (Glucagen) 1 mg Q15M PRN IM DECREASED GLUCOSE; Start 11/06/16 at 14:30 Glucose (Glutose) 15 gm Q15M PRN BUCCAL DECREASED GLUCOSE; Start 11/06/16 at 14 :30 Enoxaparin Sodium (Lovenox) 40 mg DAILY SC Last administered on 11/09/16 09:15 ; Admin Dose 40 MG; Start 11/07/16 at 09:00 Insulin Glargine (Lantus) 5 unit HS SC ; Start 11/09/16 at 21:00 Assessment/Plan Additional Assessment/Plan IMP: 1 s/p CABG RECS: 1. Doing well s/p CABG. Encourage early mobilization; aggressive ICS. VALERIA ROSE MD Nov 09, 2016 17:22
--- NOTE | 2016-11-09 18:37 | RADRPT ---
PROCEDURE: XR Chest. CLINICAL INDICATION: Respiratory distress. Postoperative evaluation. TECHNIQUE: AP view of the chest was performed. COMPARISON: November 08, 2016 FINDINGS: CABG postsurgical changes are present. The [place] catheter, mediastinal drains, and left chest tube have been removed. There is no pneum othorax. The lungs are clear. No pulmonary edema or pleural effusion. No acute infiltrate. IMPRESSION: [place] catheter, mediastinal drain and left chest tube out. CABG postsurgical changes. No pneumot horax. No acute infiltrate or findings of acute fluid overload. RPTAT: QQ. .Meli Christy MD, MD Date Time Electronically viewed and signed by .Meli Christy MD, MD on 11/09/2016 18:37 .F/
[2016-11-09] MEDS ORDERED: morphine 4 MG/ML VIAL IV PRN (21:30)
[2016-11-09] MEDS: ATORVASTATIN 40 MG TAB PO SCH (21:38)
[2016-11-09] MEDS: ZOLPIDEM 5 MG TAB PO PRN (21:45)
[2016-11-09] MEDS: INSULIN GLARGINE [LANtus] 3 ML PEN SC SCH (21:50)
[2016-11-10] VITALS (12 sets, daily range): BP systolic 99–135; BP diastolic 56–65; PULSE 57–103; RESP 16–18
[2016-11-10] MEDS: ACCU-CHEK XX SCH ×2 (02:00)
[2016-11-10] MEDS: INSULIN ASPART [NOVOLOG] 3 ML PEN SC SCH ×4 (07:55→21:00)
[2016-11-10] MEDS: METOPROLOL 25 MG TAB PO SCH ×2 (07:56→20:47)
[2016-11-10] MEDS: ASPIRIN 81 MG TAB PO SCH (08:41)
[2016-11-10] MEDS: ENOXAPARIN 40 MG/0.4 ML SYG SC SCH (08:43)
[2016-11-10] MEDS: FAMOTIDINE 20 MG TAB PO SCH (08:43)
--- NOTE | 2016-11-10 09:41 | RADRPT ---
PROCEDURE: XR Chest. CLINICAL INDICATION: Shortness of breath. Chest tube removed. TECHNIQUE: Single frontal view. COMPARISON: 11/09/2016. FINDINGS: There is mild atelectasis at the lung bases with left worse than right. The lungs are otherwise dante r. The heart size is normal. There are sternal wires and mediastinal clips from previous CABG. Calcific ation is present in the aorta consistent with atherosclerosis. There are small bilateral pleural effusions with left larger than right. There is no pneumothorax. IMPRESSION: 1. Mild atelectasis at the lung bases with left worse than right. 2. Previous CABG. 3. Atherosclerosis. 4. Small bilateral pleural effusions with left larger than right. RPTAT: QQ .Juma Ryder MD, MD Date Time Electronically viewed and signed by .Juma Ryder MD, on 11/10/2016 09:40 .R/
[2016-11-10 10:21] LABS: BASOPHIL # 0.1 10^3/ul (0.0-0.1); BASOPHILS % 0.4 % (0.0-2.0); EOSINOPHILS # 0.2 10^3/ul (0.0-0.5); EOSINOPHILS % 1.8 % (0.0-7.0); HEMATOCRIT 29.1 % (42.0-52.0); HEMOGLOBIN 9.1 g/dl (14.0-18.0); LYMPHOCYTES # 1.1 10^3/ul (0.8-2.9); LYMPHOCYTES % 9.6 % (15.0-51.0); MEAN CORPUSCULAR HEMOGLOBIN 28.2 pg (29.0-33.0); MEAN CORPUSCULAR HGB CONC 31.3 g/dl (32.0-37.0); MEAN CORPUSCULAR VOLUME 90.1 fl (82.0-101.0); MONOCYTE # 1.1 10^3/ul (0.3-0.9); MONOCYTES % 9.3 % (0.0-11.0); NEUTROPHIL # 8.6 10^3/ul (1.6-7.5); NEUTROPHILS % 74.8 % (39.0-77.0); NUCLEATED RED BLOOD CELLS # 0.5 10^3/ul (0.0-0.0); NUCLEATED RED BLOOD CELLS% 4.3 /100WBC (0.0-0.0); PLATELET COUNT 210 10^3/UL (140-415); RED BLOOD COUNT 3.23 10^6/ul (4.70-6.10); RED CELL DISTRIBUTION WIDTH 14.2 % (11.5-14.5); WHITE BLOOD COUNT 11.5 10^3/ul (4.8-10.8)
--- NOTE | 2016-11-10 10:28 | PN ---
Date/Time of Note Date/Time of Note DATE: 11/10/16 TIME: 10:28 Assessment/Plan VTE Prophylaxis VTE Prophylaxis Intervention: LMWH Lines/Catheters IV [facility] Saline Lock Urinary Cath still in place: No Assessment/Plan Assessment/Plan 1. CAD s/p CABG - CT surgery and Cardiology on board. Recommendations appreciated - Continue post op care - Encouraged ambulation 2. SOB secondary to #1 - Ambulation - incentive spirometry - Pulmonology on board and recommendations appreciated. 3. HTN - stable 4. DM - A1c 5.5 5. Anemia - no signs of active bleeding - H/H stable Subjective 24 Hr Interval Summary Free Text/Dictation Patient seen and examined. Doing well but still experiencing SOB with ambulation. Does admit to tenderness at site of surgical incision but denies any chest pain, dizziness, nausea, vomiting, or abdominal issues. Exam/Review of Systems Vital Signs Vitals Vital Signs Date Time Temp Pulse Resp B/P Pulse Ox O2 Delivery O2 Flow Rate FiO2 11/10/16 08:15 60 11/10/16 07:51 98.2 17 99/57 100 11/08/16 17:58 Room Air 11/08/16 17:24 21 11/08/16 08:00 2.0 Intake and Output 11/09/16 11/09/16 11/10/16 15:00 23:00 07:00 Intake Total 800 ml 800 ml 320 ml Output Total 500 ml 150 ml Balance 300 ml 800 ml 170 ml Exam General: NAD, pleasant and cooperative Chest: well healing midline incision, no drainage or discharge CVS: regular rate and rhythm. no murmurs Lungs: CTA b/l. no wheezes or rhonchi Abd: soft, NT, ND, no rebound or guarding Ext: no edema, cyanosis, or clubbing Results Result Diagram: 11/10/16 1012 11/09/16 0732 Results 24 hrs Laboratory Tests Test 11/09/16 11:40 11/09/16 17:07 11/09/16 21:49 11/10/16 07:59 Bedside Glucose 91 94 102 108 Test 11/10/16 10:12 White Blood Count 11.5 #H Red Blood Count 3.23 L Hemoglobin 9.1 L Hematocrit 29.1 L Mean Corpuscular Volume 90.1 Mean Corpuscular Hemoglobin 28.2 L Mean Corpuscular Hemoglobin Concent 31.3 L Red Cell Distribution Width 14.2 Platelet Count 210 # Mean Platelet Volume 10.0 Neutrophils % 74.8 Lymphocytes % 9.6 L Monocytes % 9.3 Eosinophils % 1.8 Basophils % 0.4 Nucleated Red Blood Cells % 4.3 H Neutrophils # 8.6 H Lymphocytes # 1.1 Monocytes # 1.1 H Eosinophils # 0.2 Basophils # 0.1 Nucleated Red Blood Cells # 0.5 H Medications Medications Current Medications Atorvastatin Calcium (Lipitor) 40 mg HS PO Last administered on 11/09/16 21:38 ; Admin Dose 40 MG; Start 10/31/16 at 21:00 Metoprolol Tartrate (Lopressor) 25 mg BID PO Last administered on 11/09/16 21: 45; Admin Dose 25 MG; Start 10/31/16 at 21:00 Aspirin (Aspirin) 81 mg DAILY PO Last administered on 11/10/16 08:41; Admin Dose 81 MG; Start 11/01/16 at 09:00 Famotidine (Pepcid) 20 mg DAILY PO Last administered on 11/10/16 08:43; Admin Dose 20 MG; Start 11/03/16 at 18:00 Acetaminophen (Tylenol Tab) 650 mg Q6H PRN PO PAIN AND OR ELEVATED TEMP; Start 11/03/16 at 17:00 Ondansetron HCl (Zofran Inj) 4 mg Q6H PRN IV NAUSEA AND/OR VOMITING Last administered on 11/07/16 22:14; Admin Dose 4 MG; Start 11/03/16 at 17:00 Acetaminophen/ Hydrocodone Bitart ([place] (5/325)) 1 tab Q6H PRN PO PAIN LEVEL 8 -10 Last administered on 11/07/16 20:33; Admin Dose 1 TAB; Start 11/03/16 at 17 :00 Hydromorphone HCl (Dilaudid) 0.2 mg Q15M PRN IV PAIN LEVEL 1-5 Last administered on 11/07/16 22:15; Admin Dose 0.2 MG; Start 11/04/16 at 22:00 Hydromorphone HCl (Dilaudid) 0.4 mg Q15M PRN IV PAIN LEVEL 6-10 Last administered on 11/07/16 04:15; Admin Dose 0.4 MG; Start 11/04/16 at 22:00 Hydromorphone HCl (Dilaudid) 0.2 mg Q1H PRN IV PAIN LEVEL 1-5 Last administered on 11/08/16 21:57; Admin Dose 0.2 MG; Start 11/04/16 at 22:00 Hydromorphone HCl (Dilaudid) 0.4 mg Q1H PRN IV PAIN LEVEL 6-10; Start 11/04/16 at 22:00 Acetaminophen 650 mg 650 mg Q3H PRN [place] ELEVATED TEMPERATURE; Start 11/04/16 at 22:00 Magnesium Sulfate/ Dextrose (Magnesium Sulfate 1 Gm/D5W) 100 ml @ 100 mls/hr PRN PRN IVPB PENDING LAB VALUE Last administered on 11/05/16 06:21; Admin Dose 100 MLS/HR; Start 11/04/16 at 23:30 Diagnostic Test (Pha) (Accu-Chek) 1 ea 02 XX ; Start 11/07/16 at 02:00 Diagnostic Test (Pha) (Accu-Chek) 1 ea 02 XX ; Start 11/07/16 at 02:00 Miscellaneous Information 1 ea NOTE XX ; Start 11/06/16 at 14:30 Glucose (Glutose) 15 gm Q15M PRN PO DECREASED GLUCOSE; Start 11/06/16 at 14:30 Glucose (Glutose) 22.5 gm Q15M PRN PO DECREASED GLUCOSE; Start 11/06/16 at 14: 30 Dextrose (D50w Syringe) 25 ml Q15M PRN IV DECREASED GLUCOSE; Start 11/06/16 at 14:30 Dextrose (D50w Syringe) 50 ml Q15M PRN IV DECREASED GLUCOSE; Start 11/06/16 at 14:30 Glucagon (Glucagen) 1 mg Q15M PRN IM DECREASED GLUCOSE; Start 11/06/16 at 14:30 Glucose (Glutose) 15 gm Q15M PRN BUCCAL DECREASED GLUCOSE; Start 11/06/16 at 14 :30 Enoxaparin Sodium (Lovenox) 40 mg DAILY SC Last administered on 11/10/16 08:43 ; Admin Dose 40 MG; Start 11/07/16 at 09:00 Insulin Glargine (Lantus) 5 unit HS SC Last administered on 11/09/16 21:50; Admin Dose 5 UNIT; Start 11/09/16 at 21:00 Morphine Sulfate (morphine) 4 mg Q4H PRN IV PAIN; Start 11/09/16 at 21:30 ETHEL CANNON MD Nov 10, 2016 10:28
[2016-11-10 10:46] LABS: CALCIUM 8.4 mg/dl (8.4-10.2); CREATININE 0.74 mg/dl (0.61-1.24); POTASSIUM 4.2 mmol/L (3.5-5.1)
--- NOTE | 2016-11-10 18:44 | CONS ---
Date/Time of Note Date/Time of Note DATE: 11/10/16 TIME: 18:43 Consult Date/Type/Reason Admit Date/Time Oct 31, 2016 at 11:41 Type of Consultation: cardiology Subjective CARDIOLOGY FOLLOW UP NOTE (covering for DR WATSON) . Discussed with the staff and rhythm was reviewed. pt remains in NSR. NO AFIB pt s/p CABG 11/04/16 and extubated pt remains in NSR his chest tubes removed 11/08. HE has mild chest wall tenderness only Subjective: General: NO acute distress HEENT: NC/AT. pupils are equal. round. NECK:. no stridor. CV: RRR. systolic murmur; no gallop or rubs. PULM: no wheezing or rhonchi. chest : s/p sternotomy.. GI: SOFT, NT, ND, no rebound or guarding Extremity: trace B/L LE edema. no clubbing. neuro: awake and alert. responds appropriately Psych: calm and pleasant rectal: deferred Objective Vital Signs Date Time Temp Pulse Resp B/P Pulse Ox O2 Delivery O2 Flow Rate FiO2 11/10/16 16:26 90 11/10/16 15:50 98.2 16 120/56 100 11/08/16 17:58 Room Air 11/08/16 17:24 21 11/08/16 08:00 2.0 Intake and Output 11/09/16 11/09/16 11/10/16 15:00 23:00 07:00 Intake Total 800 ml 800 ml 320 ml Output Total 500 ml 150 ml Balance 300 ml 800 ml 170 ml Results/Medications Result Diagram: 11/10/16 1012 11/10/16 1012 Results 24 hrs Laboratory Tests Test 11/09/16 21:49 11/10/16 07:59 11/10/16 10:12 11/10/16 11:59 Bedside Glucose 102 108 106 White Blood Count 11.5 #H Red Blood Count 3.23 L Hemoglobin 9.1 L Hematocrit 29.1 L Mean Corpuscular Volume 90.1 Mean Corpuscular Hemoglobin 28.2 L Mean Corpuscular Hemoglobin Concent 31.3 L Red Cell Distribution Width 14.2 Platelet Count 210 # Mean Platelet Volume 10.0 Neutrophils % 74.8 Lymphocytes % 9.6 L Monocytes % 9.3 Eosinophils % 1.8 Basophils % 0.4 Nucleated Red Blood Cells % 4.3 H Neutrophils # 8.6 H Lymphocytes # 1.1 Monocytes # 1.1 H Eosinophils # 0.2 Basophils # 0.1 Nucleated Red Blood Cells # 0.5 H Sodium Level 140 Potassium Level 4.2 Chloride Level 106 Carbon Dioxide Level 29 Anion Gap 9 Blood Urea Nitrogen 14 Creatinine 0.74 Glucose Level 113 Calcium Level 8.4 Test 11/10/16 17:25 Bedside Glucose 94 Medications Current Medications Atorvastatin Calcium (Lipitor) 40 mg HS PO Last administered on 11/09/16 21:38 ; Admin Dose 40 MG; Start 10/31/16 at 21:00 Metoprolol Tartrate (Lopressor) 25 mg BID PO Last administered on 11/09/16 21: 45; Admin Dose 25 MG; Start 10/31/16 at 21:00 Aspirin (Aspirin) 81 mg DAILY PO Last administered on 11/10/16 08:41; Admin Dose 81 MG; Start 11/01/16 at 09:00 Famotidine (Pepcid) 20 mg DAILY PO Last administered on 11/10/16 08:43; Admin Dose 20 MG; Start 11/03/16 at 18:00 Acetaminophen (Tylenol Tab) 650 mg Q6H PRN PO PAIN AND OR ELEVATED TEMP; Start 11/03/16 at 17:00 Ondansetron HCl (Zofran Inj) 4 mg Q6H PRN IV NAUSEA AND/OR VOMITING Last administered on 11/07/16 22:14; Admin Dose 4 MG; Start 11/03/16 at 17:00 Acetaminophen/ Hydrocodone Bitart ([place] (5/325)) 1 tab Q6H PRN PO PAIN LEVEL 8 -10 Last administered on 11/07/16 20:33; Admin Dose 1 TAB; Start 11/03/16 at 17 :00 Hydromorphone HCl (Dilaudid) 0.2 mg Q15M PRN IV PAIN LEVEL 1-5 Last administered on 11/07/16 22:15; Admin Dose 0.2 MG; Start 11/04/16 at 22:00 Hydromorphone HCl (Dilaudid) 0.4 mg Q15M PRN IV PAIN LEVEL 6-10 Last administered on 11/07/16 04:15; Admin Dose 0.4 MG; Start 11/04/16 at 22:00 Hydromorphone HCl (Dilaudid) 0.2 mg Q1H PRN IV PAIN LEVEL 1-5 Last administered on 11/08/16 21:57; Admin Dose 0.2 MG; Start 11/04/16 at 22:00 Hydromorphone HCl (Dilaudid) 0.4 mg Q1H PRN IV PAIN LEVEL 6-10; Start 11/04/16 at 22:00 Acetaminophen 650 mg 650 mg Q3H PRN [place] ELEVATED TEMPERATURE; Start 11/04/16 at 22:00 Magnesium Sulfate/ Dextrose (Magnesium Sulfate 1 Gm/D5W) 100 ml @ 100 mls/hr PRN PRN IVPB PENDING LAB VALUE Last administered on 11/05/16 06:21; Admin Dose 100 MLS/HR; Start 11/04/16 at 23:30 Diagnostic Test (Pha) (Accu-Chek) 1 ea 02 XX ; Start 11/07/16 at 02:00 Diagnostic Test (Pha) (Accu-Chek) 1 ea 02 XX ; Start 11/07/16 at 02:00 Miscellaneous Information 1 ea NOTE XX ; Start 11/06/16 at 14:30 Glucose (Glutose) 15 gm Q15M PRN PO DECREASED GLUCOSE; Start 11/06/16 at 14:30 Glucose (Glutose) 22.5 gm Q15M PRN PO DECREASED GLUCOSE; Start 11/06/16 at 14: 30 Dextrose (D50w Syringe) 25 ml Q15M PRN IV DECREASED GLUCOSE; Start 11/06/16 at 14:30 Dextrose (D50w Syringe) 50 ml Q15M PRN IV DECREASED GLUCOSE; Start 11/06/16 at 14:30 Glucagon (Glucagen) 1 mg Q15M PRN IM DECREASED GLUCOSE; Start 11/06/16 at 14:30 Glucose (Glutose) 15 gm Q15M PRN BUCCAL DECREASED GLUCOSE; Start 11/06/16 at 14 :30 Enoxaparin Sodium (Lovenox) 40 mg DAILY SC Last administered on 11/10/16 08:43 ; Admin Dose 40 MG; Start 11/07/16 at 09:00 Insulin Glargine (Lantus) 5 unit HS SC Last administered on 11/09/16 21:50; Admin Dose 5 UNIT; Start 11/09/16 at 21:00 Morphine Sulfate (morphine) 4 mg Q4H PRN IV PAIN; Start 11/09/16 at 21:30 Assessment/Plan Chief Complaint/Hosp Course Assessment: severe Obstructive coronary artery disease with left main involvement and Positive stress echo: s/p CABG Abnormal EKG s/p post op hypoxemic resp failure; Extubated now hx of HTN: anemia DM: Recommendation/plan: cont post op care off of pressors will monitor. cont chest tubes were removed per CT surgery. cont ASA STATIN betablocker as tolerated. monitor H/H and transfuse prn THANK YOU BEBETO JAMES MD [facility] Problems: BEBETO JAMES MD Nov 10, 2016 18:44
--- NOTE | 2016-11-10 19:49 | PN ---
Date/Time of Note Date/Time of Note DATE: 11/10/16 TIME: 19:48 Assessment/Plan Lines/Catheters IV Catheter Type (from Nrsg): Saline Lock Coy in Place (from Nrsg): No Assessment/Plan Chief Complaint/Hosp Course SP CABG Extubated CT removed will ambulate pulm toilet Problems: Subjective 24 Hr Interval Summary Constitutional: improved Pain Control: mild Exam/Review of Systems Vital Signs Vitals Vital Signs Date Time Temp Pulse Resp B/P Pulse Ox O2 Delivery O2 Flow Rate FiO2 11/10/16 16:26 90 11/10/16 15:50 98.2 16 120/56 100 11/08/16 17:58 Room Air 11/08/16 17:24 21 11/08/16 08:00 2.0 Intake and Output 11/09/16 11/09/16 11/10/16 15:00 23:00 07:00 Intake Total 800 ml 800 ml 320 ml Output Total 500 ml 150 ml Balance 300 ml 800 ml 170 ml Exam Neck: non-tender, supple Respiratory: clear to auscultation, normal air movement Cardiovascular: nl pulses, regular rate and rhythm Gastrointestinal: nl liver, spleen, non-tender, soft Results Result Diagram: 11/10/16 1012 11/10/16 1012 SHLOMO HUGHES MD Nov 10, 2016 19:49
[2016-11-10] MEDS: ZOLPIDEM 5 MG TAB PO PRN (20:42)
[2016-11-10] MEDS: ATORVASTATIN 40 MG TAB PO SCH (20:46)
[2016-11-10] MEDS: INSULIN GLARGINE [LANtus] 3 ML PEN SC SCH (21:25)
[2016-11-11] VITALS (10 sets, daily range): BP systolic 99–127; BP diastolic 55–64; PULSE 72–102; RESP 17–20
[2016-11-11] MEDS: ACCU-CHEK XX SCH ×2 (02:00)
[2016-11-11] MEDS: INSULIN ASPART [NOVOLOG] 3 ML PEN SC SCH ×4 (07:55→20:09)
[2016-11-11] MEDS: ASPIRIN 81 MG TAB PO SCH (08:27)
[2016-11-11] MEDS: FAMOTIDINE 20 MG TAB PO SCH (08:27)
[2016-11-11] MEDS: ENOXAPARIN 40 MG/0.4 ML SYG SC SCH (08:32)
[2016-11-11] MEDS: METOPROLOL 25 MG TAB PO SCH ×2 (08:33→20:10)
--- NOTE | 2016-11-11 09:09 | RADRPT ---
PROCEDURE: Chest Radiograph. CLINICAL INDICATION: Chest tube TECHNIQUE: Single frontal chest radiograph. COMPARISON: Chest radiograph 11/10/2016 FINDINGS: The patient is status post sternotomy. Heart size is within normal limits. There is evidence of prio r CABG. There is improved aeration of the bilateral lung bases with resolution of right basilar ate lectasis/infiltrate and improved appearance of left basilar pleural / parenchymal disease. There is no definitive residual right pleural effusion. There is a residual small pleural effusion. The charan gricel are intact. IMPRESSION: 1. Improving bibasilar pleural / parenchymal disease, nearly completely resolved on the right. RPTAT: KK .Shabbir Garcia MD, MD Date Time Electronically viewed and signed by .Shabbir Garcia MD, on 11/11/2016 09:08 .B/
--- NOTE | 2016-11-11 12:14 | CONS ---
Date/Time of Note Date/Time of Note DATE: 11/11/16 TIME: 12:13 Consult Date/Type/Reason Admit Date/Time Oct 31, 2016 at 11:41 Initial Consult Date 11/05/16 Type of Consultation: Pulm Subjective No new events comfortable, mild exertional dyspnea. Objective Vital Signs Date Time Temp Pulse Resp B/P Pulse Ox O2 Delivery O2 Flow Rate FiO2 11/11/16 11:09 98.7 92 17 99/58 98 11/11/16 02:35 21 11/08/16 17:58 Room Air 11/08/16 08:00 2.0 Intake and Output 11/10/16 11/10/16 11/11/16 15:00 23:00 07:00 Intake Total 620 ml Output Total 550 ml Balance 70 ml Results/Medications Result Diagram: 11/10/16 1012 11/10/16 1012 Results 24 hrs Laboratory Tests Test 11/10/16 17:25 11/10/16 21:17 11/11/16 02:01 11/11/16 08:24 Bedside Glucose 94 133 98 83 Test 11/11/16 12:02 Bedside Glucose 102 Medications Current Medications Atorvastatin Calcium (Lipitor) 40 mg HS PO Last administered on 11/10/16 20:46 ; Admin Dose 40 MG; Start 10/31/16 at 21:00 Metoprolol Tartrate (Lopressor) 25 mg BID PO Last administered on 11/10/16 20: 47; Admin Dose 25 MG; Start 10/31/16 at 21:00 Aspirin (Aspirin) 81 mg DAILY PO Last administered on 11/11/16 08:27; Admin Dose 81 MG; Start 11/01/16 at 09:00 Famotidine (Pepcid) 20 mg DAILY PO Last administered on 11/11/16 08:27; Admin Dose 20 MG; Start 11/03/16 at 18:00 Acetaminophen (Tylenol Tab) 650 mg Q6H PRN PO PAIN AND OR ELEVATED TEMP; Start 11/03/16 at 17:00 Ondansetron HCl (Zofran Inj) 4 mg Q6H PRN IV NAUSEA AND/OR VOMITING Last administered on 11/07/16 22:14; Admin Dose 4 MG; Start 11/03/16 at 17:00 Acetaminophen/ Hydrocodone Bitart ([place] (5/325)) 1 tab Q6H PRN PO PAIN LEVEL 8 -10 Last administered on 11/07/16 20:33; Admin Dose 1 TAB; Start 11/03/16 at 17 :00 Hydromorphone HCl (Dilaudid) 0.2 mg Q15M PRN IV PAIN LEVEL 1-5 Last administered on 11/07/16 22:15; Admin Dose 0.2 MG; Start 11/04/16 at 22:00 Hydromorphone HCl (Dilaudid) 0.4 mg Q15M PRN IV PAIN LEVEL 6-10 Last administered on 11/07/16 04:15; Admin Dose 0.4 MG; Start 11/04/16 at 22:00 Hydromorphone HCl (Dilaudid) 0.2 mg Q1H PRN IV PAIN LEVEL 1-5 Last administered on 11/08/16 21:57; Admin Dose 0.2 MG; Start 11/04/16 at 22:00 Hydromorphone HCl (Dilaudid) 0.4 mg Q1H PRN IV PAIN LEVEL 6-10; Start 11/04/16 at 22:00 Acetaminophen 650 mg 650 mg Q3H PRN [place] ELEVATED TEMPERATURE; Start 11/04/16 at 22:00 Magnesium Sulfate/ Dextrose (Magnesium Sulfate 1 Gm/D5W) 100 ml @ 100 mls/hr PRN PRN IVPB PENDING LAB VALUE Last administered on 11/05/16 06:21; Admin Dose 100 MLS/HR; Start 11/04/16 at 23:30 Diagnostic Test (Pha) (Accu-Chek) 1 ea 02 XX ; Start 11/07/16 at 02:00 Diagnostic Test (Pha) (Accu-Chek) 1 ea 02 XX ; Start 11/07/16 at 02:00 Miscellaneous Information 1 ea NOTE XX ; Start 11/06/16 at 14:30 Glucose (Glutose) 15 gm Q15M PRN PO DECREASED GLUCOSE; Start 11/06/16 at 14:30 Glucose (Glutose) 22.5 gm Q15M PRN PO DECREASED GLUCOSE; Start 11/06/16 at 14: 30 Dextrose (D50w Syringe) 25 ml Q15M PRN IV DECREASED GLUCOSE; Start 11/06/16 at 14:30 Dextrose (D50w Syringe) 50 ml Q15M PRN IV DECREASED GLUCOSE; Start 11/06/16 at 14:30 Glucagon (Glucagen) 1 mg Q15M PRN IM DECREASED GLUCOSE; Start 11/06/16 at 14:30 Glucose (Glutose) 15 gm Q15M PRN BUCCAL DECREASED GLUCOSE; Start 11/06/16 at 14 :30 Enoxaparin Sodium (Lovenox) 40 mg DAILY SC Last administered on 11/11/16 08:32 ; Admin Dose 40 MG; Start 11/07/16 at 09:00 Insulin Glargine (Lantus) 5 unit HS SC Last administered on 11/10/16 21:25; Admin Dose 5 UNIT; Start 11/09/16 at 21:00 Morphine Sulfate (morphine) 4 mg Q4H PRN IV PAIN; Start 11/09/16 at 21:30 Assessment/Plan Chief Complaint/Hosp Course Assessment 1. s/p CABG 2. resolving hypoxemia. Plan 1. cardiac recs 2. Dc planning ok from pulm standpoint,. Problems: MARY ELLEN BLACKMON MD, [facility] Nov 11, 2016 12:14
[2016-11-11 12:31] LABS: ABNORMAL IP MESSAGE 1; BASOPHIL # 0.1 10^3/ul (0.0-0.1); BASOPHILS % 0.5 % (0.0-2.0); EOSINOPHILS # 0.2 10^3/ul (0.0-0.5); EOSINOPHILS % 1.6 % (0.0-7.0); HEMATOCRIT 31.3 % (42.0-52.0); HEMOGLOBIN 9.5 g/dl (14.0-18.0); LYMPHOCYTES # 1.4 10^3/ul (0.8-2.9); LYMPHOCYTES % 11.8 % (15.0-51.0); MEAN CORPUSCULAR HEMOGLOBIN 27.9 pg (29.0-33.0); MEAN CORPUSCULAR HGB CONC 30.4 g/dl (32.0-37.0); MEAN CORPUSCULAR VOLUME 92.1 fl (82.0-101.0); MEAN PLATELET VOLUME 9.4 fl (7.4-10.4); MONOCYTES % 8.6 % (0.0-11.0); NEUTROPHIL # 8.6 10^3/ul (1.6-7.5); NEUTROPHILS % 71.9 % (39.0-77.0); NUCLEATED RED BLOOD CELLS # 0.3 10^3/ul (0.0-0.0); NUCLEATED RED BLOOD CELLS% 2.4 /100WBC (0.0-0.0); PLATELET COUNT 239 10^3/UL (140-415); POSITIVE DIFF @See below; RED CELL DISTRIBUTION WIDTH 15.2 % (11.5-14.5)
[2016-11-11 12:46] LABS: CALCIUM 8.4 mg/dl (8.4-10.2); CREATININE 0.79 mg/dl (0.61-1.24)
--- NOTE | 2016-11-11 13:35 | PN ---
Date/Time of Note Date/Time of Note DATE: 11/11/16 TIME: 13:33 Assessment/Plan VTE Prophylaxis VTE Prophylaxis Intervention: heparin Lines/Catheters IV [facility] [place] Urinary Cath still in place: No Assessment/Plan Assessment/Plan 1. CAD s/p CABG - CT surgery and Cardiology on board. Recommendations appreciated - Continue post op care - Encouraged ambulation 2. SOB secondary to #1 - Ambulation - incentive spirometry - Pulmonology on board and recommendations appreciated. Okay for d/c planning from their standpoint 3. HTN - stable. SBP in the 90s which is concerning patient but does not appear symptomatic 4. DM - A1c 5.5 5. Anemia - no signs of active bleeding - H/H stable 6. Disposition - Continue with post op care per Cardiology and CT surgery - Will touch base on d/c planning - Working with PT daily and will touch base on placement recommendations Subjective 24 Hr Interval Summary Free Text/Dictation Patient states he is feeling well but still experiencing mild dyspnea on exertion. He is also concerned the medications causing his bp to run on the lower side. He does have slight dizziness, but denies any LOC, chest pain, nausea, vomiting, or abdominal issues. Exam/Review of Systems Vital Signs Vitals Vital Signs Date Time Temp Pulse Resp B/P Pulse Ox O2 Delivery O2 Flow Rate FiO2 11/11/16 12:00 87 11/11/16 11:09 98.7 17 99/58 98 11/11/16 02:35 21 11/08/16 17:58 Room Air 11/08/16 08:00 2.0 Intake and Output 11/10/16 11/10/16 11/11/16 14:59 22:59 06:59 Intake Total 620 ml Output Total 550 ml Balance 70 ml Exam General: NAD, pleasant and cooperative Chest: well healing midline incision, no drainage or discharge CVS: regular rate and rhythm. no murmurs Lungs: CTA b/l. no wheezes or rhonchi Abd: soft, NT, ND, no rebound or guarding Ext: no edema, cyanosis, or clubbing Results Result Diagram: 11/11/16 1152 11/11/16 1152 Results 24 hrs Laboratory Tests Test 11/10/16 17:25 11/10/16 21:17 11/11/16 02:01 11/11/16 08:24 Bedside Glucose 94 133 98 83 Test 11/11/16 11:52 11/11/16 12:02 White Blood Count 12.0 H Red Blood Count 3.40 L Hemoglobin 9.5 L Hematocrit 31.3 L Mean Corpuscular Volume 92.1 Mean Corpuscular Hemoglobin 27.9 L Mean Corpuscular Hemoglobin Concent 30.4 L Red Cell Distribution Width 15.2 H Platelet Count 239 Mean Platelet Volume 9.4 Neutrophils % 71.9 Lymphocytes % 11.8 L Monocytes % 8.6 Eosinophils % 1.6 Basophils % 0.5 Nucleated Red Blood Cells % 2.4 H Neutrophils # 8.6 H Lymphocytes # 1.4 Monocytes # 1.0 H Eosinophils # 0.2 Basophils # 0.1 Nucleated Red Blood Cells # 0.3 H Sodium Level 139 Potassium Level 4.0 Chloride Level 108 Carbon Dioxide Level 26 Anion Gap 9 Blood Urea Nitrogen 12 Creatinine 0.79 Glucose Level 105 Calcium Level 8.4 Bedside Glucose 102 Medications Medications Current Medications Atorvastatin Calcium (Lipitor) 40 mg HS PO Last administered on 11/10/16 20:46 ; Admin Dose 40 MG; Start 10/31/16 at 21:00 Metoprolol Tartrate (Lopressor) 25 mg BID PO Last administered on 11/10/16 20: 47; Admin Dose 25 MG; Start 10/31/16 at 21:00 Aspirin (Aspirin) 81 mg DAILY PO Last administered on 11/11/16 08:27; Admin Dose 81 MG; Start 11/01/16 at 09:00 Famotidine (Pepcid) 20 mg DAILY PO Last administered on 11/11/16 08:27; Admin Dose 20 MG; Start 11/03/16 at 18:00 Acetaminophen (Tylenol Tab) 650 mg Q6H PRN PO PAIN AND OR ELEVATED TEMP; Start 11/03/16 at 17:00 Ondansetron HCl (Zofran Inj) 4 mg Q6H PRN IV NAUSEA AND/OR VOMITING Last administered on 11/07/16 22:14; Admin Dose 4 MG; Start 11/03/16 at 17:00 Acetaminophen/ Hydrocodone Bitart ([place] (5/325)) 1 tab Q6H PRN PO PAIN LEVEL 8 -10 Last administered on 11/07/16 20:33; Admin Dose 1 TAB; Start 11/03/16 at 17 :00 Hydromorphone HCl (Dilaudid) 0.2 mg Q15M PRN IV PAIN LEVEL 1-5 Last administered on 11/07/16 22:15; Admin Dose 0.2 MG; Start 11/04/16 at 22:00 Hydromorphone HCl (Dilaudid) 0.4 mg Q15M PRN IV PAIN LEVEL 6-10 Last administered on 11/07/16 04:15; Admin Dose 0.4 MG; Start 11/04/16 at 22:00 Hydromorphone HCl (Dilaudid) 0.2 mg Q1H PRN IV PAIN LEVEL 1-5 Last administered on 11/08/16 21:57; Admin Dose 0.2 MG; Start 11/04/16 at 22:00 Hydromorphone HCl (Dilaudid) 0.4 mg Q1H PRN IV PAIN LEVEL 6-10; Start 11/04/16 at 22:00 Acetaminophen 650 mg 650 mg Q3H PRN [place] ELEVATED TEMPERATURE; Start 11/04/16 at 22:00 Magnesium Sulfate/ Dextrose (Magnesium Sulfate 1 Gm/D5W) 100 ml @ 100 mls/hr PRN PRN IVPB PENDING LAB VALUE Last administered on 11/05/16 06:21; Admin Dose 100 MLS/HR; Start 11/04/16 at 23:30 Diagnostic Test (Pha) (Accu-Chek) 1 ea 02 XX ; Start 11/07/16 at 02:00 Diagnostic Test (Pha) (Accu-Chek) 1 ea 02 XX ; Start 11/07/16 at 02:00 Miscellaneous Information 1 ea NOTE XX ; Start 11/06/16 at 14:30 Glucose (Glutose) 15 gm Q15M PRN PO DECREASED GLUCOSE; Start 11/06/16 at 14:30 Glucose (Glutose) 22.5 gm Q15M PRN PO DECREASED GLUCOSE; Start 11/06/16 at 14: 30 Dextrose (D50w Syringe) 25 ml Q15M PRN IV DECREASED GLUCOSE; Start 11/06/16 at 14:30 Dextrose (D50w Syringe) 50 ml Q15M PRN IV DECREASED GLUCOSE; Start 11/06/16 at 14:30 Glucagon (Glucagen) 1 mg Q15M PRN IM DECREASED GLUCOSE; Start 11/06/16 at 14:30 Glucose (Glutose) 15 gm Q15M PRN BUCCAL DECREASED GLUCOSE; Start 11/06/16 at 14 :30 Enoxaparin Sodium (Lovenox) 40 mg DAILY SC Last administered on 11/11/16 08:32 ; Admin Dose 40 MG; Start 11/07/16 at 09:00 Insulin Glargine (Lantus) 5 unit HS SC Last administered on 11/10/16 21:25; Admin Dose 5 UNIT; Start 11/09/16 at 21:00 Morphine Sulfate (morphine) 4 mg Q4H PRN IV PAIN; Start 11/09/16 at 21:30 ETHEL CANNON MD Nov 11, 2016 13:35
[2016-11-11 13:37] LABS: ANISOCYTOSIS 1+ (0-0); BASOPHILS % (M) 1 % (0-2); EOSINOPHILS % (M) 1 % (0-7); ERYTHROBLAST% (NRBC) (M) 4 % (0-0); METAMYELOCYTES %M 1 % (0-0); MICROCYTOSIS 1+ (0-0); MONOCYTES % (M) 8 % (0-11); MYELOCYTES % (M) 1 % (0-0); PLATELET ESTIMATE NORMAL; POIKILOCYTOSIS 3+ (0-0); POLYCHROMASIA 3+ (0-0)
--- NOTE | 2016-11-11 15:24 | CONS ---
Date/Time of Note Date/Time of Note DATE: 11/11/16 TIME: 15:22 Consult Date/Type/Reason Admit Date/Time Oct 31, 2016 at 11:41 Type of Consultation: cardiology Subjective CARDIOLOGY FOLLOW UP NOTE (covering for DR WATSON) . Discussed with the staff and rhythm was reviewed. pt remains in NSR. NO AFIB pt remains in NSR his chest tubes removed 11/08. HE has mild chest wall tenderness only he is walking Subjective: General: NO acute distress HEENT: NC/AT. pupils are equal. round. NECK:. no stridor. CV: RRR. systolic murmur; no gallop or rubs. PULM: no wheezing or rhonchi. chest : s/p sternotomy.. GI: SOFT, NT, ND, no rebound or guarding Extremity: trace B/L LE edema. no clubbing. neuro: awake and alert. responds appropriately Psych: calm and pleasant rectal: deferred Objective Vital Signs Date Time Temp Pulse Resp B/P Pulse Ox O2 Delivery O2 Flow Rate FiO2 11/11/16 12:00 87 11/11/16 11:09 98.7 17 99/58 98 11/11/16 02:35 21 11/08/16 17:58 Room Air 11/08/16 08:00 2.0 Intake and Output 11/10/16 11/10/16 11/11/16 15:00 23:00 07:00 Intake Total 620 ml Output Total 550 ml Balance 70 ml Results/Medications Result Diagram: 11/11/16 1152 11/11/16 1152 Results 24 hrs Laboratory Tests Test 11/10/16 17:25 11/10/16 21:17 11/11/16 02:01 11/11/16 08:24 Bedside Glucose 94 133 98 83 Test 11/11/16 11:52 11/11/16 12:02 White Blood Count 12.0 H Red Blood Count 3.40 L Hemoglobin 9.5 L Hematocrit 31.3 L Mean Corpuscular Volume 92.1 Mean Corpuscular Hemoglobin 27.9 L Mean Corpuscular Hemoglobin Concent 30.4 L Red Cell Distribution Width 15.2 H Platelet Count 239 Mean Platelet Volume 9.4 Neutrophils % 71.9 Segmented Neutrophils % (Manual) 70 Band Neutrophils % (Manual) 2 Lymphocytes % 11.8 L Lymphocytes % (Manual) 15 Monocytes % 8.6 Monocytes % (Manual) 8 Eosinophils % 1.6 Eosinophils % (Manual) 1 Basophils % 0.5 Basophils % (Manual) 1 Metamyelocytes % (manual) 1 H Myelocytes % (Manual) 1 H Nucleated Red Blood Cells % 4 H Neutrophils # 8.6 H Neutrophils # (Manual) 8.4 H Band Neutrophils # 0.2 Absolute Lymphocytes (Manual) 1.8 Lymphocytes # 1.4 Monocytes # 1.0 H Absolute Monocytes (Manual) 0.9 Eosinophils # 0.2 Basophils # 0.1 Basophils # (Manual) 0.1 H Metamyelocytes # 0.1 H Myelocytes # 0.1 H Nucleated Red Blood Cells # 0.3 H Platelet Estimate NORMAL Polychromasia 3+ Poikilocytosis 3+ Anisocytosis 1+ Microcytosis 1+ Sodium Level 139 Potassium Level 4.0 Chloride Level 108 Carbon Dioxide Level 26 Anion Gap 9 Blood Urea Nitrogen 12 Creatinine 0.79 Glucose Level 105 Calcium Level 8.4 Bedside Glucose 102 Medications Current Medications Atorvastatin Calcium (Lipitor) 40 mg HS PO Last administered on 11/10/16 20:46 ; Admin Dose 40 MG; Start 10/31/16 at 21:00 Metoprolol Tartrate (Lopressor) 25 mg BID PO Last administered on 11/10/16 20: 47; Admin Dose 25 MG; Start 10/31/16 at 21:00 Aspirin (Aspirin) 81 mg DAILY PO Last administered on 11/11/16 08:27; Admin Dose 81 MG; Start 11/01/16 at 09:00 Famotidine (Pepcid) 20 mg DAILY PO Last administered on 11/11/16 08:27; Admin Dose 20 MG; Start 11/03/16 at 18:00 Acetaminophen (Tylenol Tab) 650 mg Q6H PRN PO PAIN AND OR ELEVATED TEMP; Start 11/03/16 at 17:00 Ondansetron HCl (Zofran Inj) 4 mg Q6H PRN IV NAUSEA AND/OR VOMITING Last administered on 11/07/16 22:14; Admin Dose 4 MG; Start 11/03/16 at 17:00 Acetaminophen/ Hydrocodone Bitart ([place] (5/325)) 1 tab Q6H PRN PO PAIN LEVEL 8 -10 Last administered on 11/07/16 20:33; Admin Dose 1 TAB; Start 11/03/16 at 17 :00 Hydromorphone HCl (Dilaudid) 0.2 mg Q15M PRN IV PAIN LEVEL 1-5 Last administered on 11/07/16 22:15; Admin Dose 0.2 MG; Start 11/04/16 at 22:00 Hydromorphone HCl (Dilaudid) 0.4 mg Q15M PRN IV PAIN LEVEL 6-10 Last administered on 11/07/16 04:15; Admin Dose 0.4 MG; Start 11/04/16 at 22:00 Hydromorphone HCl (Dilaudid) 0.2 mg Q1H PRN IV PAIN LEVEL 1-5 Last administered on 11/08/16 21:57; Admin Dose 0.2 MG; Start 11/04/16 at 22:00 Hydromorphone HCl (Dilaudid) 0.4 mg Q1H PRN IV PAIN LEVEL 6-10; Start 11/04/16 at 22:00 Acetaminophen 650 mg 650 mg Q3H PRN [place] ELEVATED TEMPERATURE; Start 11/04/16 at 22:00 Magnesium Sulfate/ Dextrose (Magnesium Sulfate 1 Gm/D5W) 100 ml @ 100 mls/hr PRN PRN IVPB PENDING LAB VALUE Last administered on 11/05/16 06:21; Admin Dose 100 MLS/HR; Start 11/04/16 at 23:30 Diagnostic Test (Pha) (Accu-Chek) 1 ea 02 XX ; Start 11/07/16 at 02:00 Diagnostic Test (Pha) (Accu-Chek) 1 ea 02 XX ; Start 11/07/16 at 02:00 Miscellaneous Information 1 ea NOTE XX ; Start 11/06/16 at 14:30 Glucose (Glutose) 15 gm Q15M PRN PO DECREASED GLUCOSE; Start 11/06/16 at 14:30 Glucose (Glutose) 22.5 gm Q15M PRN PO DECREASED GLUCOSE; Start 11/06/16 at 14: 30 Dextrose (D50w Syringe) 25 ml Q15M PRN IV DECREASED GLUCOSE; Start 11/06/16 at 14:30 Dextrose (D50w Syringe) 50 ml Q15M PRN IV DECREASED GLUCOSE; Start 11/06/16 at 14:30 Glucagon (Glucagen) 1 mg Q15M PRN IM DECREASED GLUCOSE; Start 11/06/16 at 14:30 Glucose (Glutose) 15 gm Q15M PRN BUCCAL DECREASED GLUCOSE; Start 11/06/16 at 14 :30 Enoxaparin Sodium (Lovenox) 40 mg DAILY SC Last administered on 11/11/16 08:32 ; Admin Dose 40 MG; Start 11/07/16 at 09:00 Insulin Glargine (Lantus) 5 unit HS SC Last administered on 11/10/16 21:25; Admin Dose 5 UNIT; Start 11/09/16 at 21:00 Morphine Sulfate (morphine) 4 mg Q4H PRN IV PAIN; Start 11/09/16 at 21:30 Assessment/Plan Chief Complaint/Hosp Course Assessment: severe Obstructive coronary artery disease with left main involvement and Positive stress echo: s/p CABG Abnormal EKG s/p post op hypoxemic resp failure; Extubated now hx of HTN: anemia DM: Recommendation/plan: cont post op care off of pressors will monitor. cont chest tubes were removed per CT surgery. cont ASA STATIN betablocker as tolerated. dc planning when ok with IM / CT surgery THANK YOU BEBETO JAMES MD [facility] Problems: BEBETO JAMES MD Nov 11, 2016 15:24
[2016-11-11] MEDS: ATORVASTATIN 40 MG TAB PO SCH (20:10)
[2016-11-11] MEDS: HYDROCODONE/APAP (5/325) TAB PO PRN (20:15)
[2016-11-11] MEDS: INSULIN GLARGINE [LANtus] 3 ML PEN SC SCH (20:21)
[2016-11-12] VITALS (11 sets, daily range): BP systolic 95–123; BP diastolic 53–68; PULSE 67–90; RESP 17–20
[2016-11-12] MEDS: ACCU-CHEK XX SCH ×2 (02:00)
[2016-11-12] MEDS: INSULIN ASPART [NOVOLOG] 3 ML PEN SC SCH ×4 (07:55→21:00)
--- NOTE | 2016-11-12 08:25 | CONS ---
Date/Time of Note Date/Time of Note DATE: 11/12/16 TIME: 08:24 Consult Date/Type/Reason Admit Date/Time Oct 31, 2016 at 11:41 Type of Consultation: cardiology Subjective CARDIOLOGY FOLLOW UP NOTE (covering for DR WATSON) . Discussed with the staff and rhythm was reviewed. pt remains in NSR. NO AFIB his chest tubes removed 11/08. HE has no significant chest wall pain he is walking Subjective: General: NO acute distress HEENT: NC/AT. pupils are equal. round. NECK:. no stridor. CV: RRR. systolic murmur; no gallop or rubs. PULM: no wheezing or rhonchi. chest : s/p sternotomy.. GI: SOFT, NT, ND, no rebound or guarding Extremity: trace B/L LE edema. no clubbing. neuro: awake and alert. responds appropriately Psych: calm and pleasant rectal: deferred Objective Vital Signs Date Time Temp Pulse Resp B/P Pulse Ox O2 Delivery O2 Flow Rate FiO2 11/12/16 08:01 98.2 92 20 110/53 98 11/11/16 02:35 21 11/08/16 17:58 Room Air 11/08/16 08:00 2.0 Intake and Output 11/11/16 11/11/16 11/12/16 15:00 23:00 07:00 Intake Total 950 ml 300 ml Balance 950 ml 300 ml Results/Medications Result Diagram: 11/11/16 1152 11/11/16 1152 Results 24 hrs Laboratory Tests Test 11/11/16 11:52 11/11/16 12:02 11/11/16 17:15 11/11/16 19:52 White Blood Count 12.0 H Red Blood Count 3.40 L Hemoglobin 9.5 L Hematocrit 31.3 L Mean Corpuscular Volume 92.1 Mean Corpuscular Hemoglobin 27.9 L Mean Corpuscular Hemoglobin Concent 30.4 L Red Cell Distribution Width 15.2 H Platelet Count 239 Mean Platelet Volume 9.4 Neutrophils % 71.9 Segmented Neutrophils % (Manual) 70 Band Neutrophils % (Manual) 2 Lymphocytes % 11.8 L Lymphocytes % (Manual) 15 Monocytes % 8.6 Monocytes % (Manual) 8 Eosinophils % 1.6 Eosinophils % (Manual) 1 Basophils % 0.5 Basophils % (Manual) 1 Metamyelocytes % (manual) 1 H Myelocytes % (Manual) 1 H Nucleated Red Blood Cells % 4 H Neutrophils # 8.6 H Neutrophils # (Manual) 8.4 H Band Neutrophils # 0.2 Absolute Lymphocytes (Manual) 1.8 Lymphocytes # 1.4 Monocytes # 1.0 H Absolute Monocytes (Manual) 0.9 Eosinophils # 0.2 Basophils # 0.1 Basophils # (Manual) 0.1 H Metamyelocytes # 0.1 H Myelocytes # 0.1 H Nucleated Red Blood Cells # 0.3 H Platelet Estimate NORMAL Polychromasia 3+ Poikilocytosis 3+ Anisocytosis 1+ Microcytosis 1+ Sodium Level 139 Potassium Level 4.0 Chloride Level 108 Carbon Dioxide Level 26 Anion Gap 9 Blood Urea Nitrogen 12 Creatinine 0.79 Glucose Level 105 Calcium Level 8.4 Bedside Glucose 102 95 136 Test 11/12/16 08:20 Bedside Glucose 89 Medications Current Medications Atorvastatin Calcium (Lipitor) 40 mg HS PO Last administered on 11/11/16 20:10 ; Admin Dose 40 MG; Start 10/31/16 at 21:00 Metoprolol Tartrate (Lopressor) 25 mg BID PO Last administered on 11/11/16 20: 10; Admin Dose 25 MG; Start 10/31/16 at 21:00 Aspirin (Aspirin) 81 mg DAILY PO Last administered on 11/11/16 08:27; Admin Dose 81 MG; Start 11/01/16 at 09:00 Famotidine (Pepcid) 20 mg DAILY PO Last administered on 11/11/16 08:27; Admin Dose 20 MG; Start 11/03/16 at 18:00 Acetaminophen (Tylenol Tab) 650 mg Q6H PRN PO PAIN AND OR ELEVATED TEMP; Start 11/03/16 at 17:00 Ondansetron HCl (Zofran Inj) 4 mg Q6H PRN IV NAUSEA AND/OR VOMITING Last administered on 11/07/16 22:14; Admin Dose 4 MG; Start 11/03/16 at 17:00 Acetaminophen/ Hydrocodone Bitart ([place] (5/325)) 1 tab Q6H PRN PO PAIN LEVEL 8 -10 Last administered on 11/11/16 20:15; Admin Dose 1 TAB; Start 11/03/16 at 17 :00 Hydromorphone HCl (Dilaudid) 0.2 mg Q15M PRN IV PAIN LEVEL 1-5 Last administered on 11/07/16 22:15; Admin Dose 0.2 MG; Start 11/04/16 at 22:00 Hydromorphone HCl (Dilaudid) 0.4 mg Q15M PRN IV PAIN LEVEL 6-10 Last administered on 11/07/16 04:15; Admin Dose 0.4 MG; Start 11/04/16 at 22:00 Hydromorphone HCl (Dilaudid) 0.2 mg Q1H PRN IV PAIN LEVEL 1-5 Last administered on 11/08/16 21:57; Admin Dose 0.2 MG; Start 11/04/16 at 22:00 Hydromorphone HCl (Dilaudid) 0.4 mg Q1H PRN IV PAIN LEVEL 6-10; Start 11/04/16 at 22:00 Acetaminophen 650 mg 650 mg Q3H PRN [place] ELEVATED TEMPERATURE; Start 11/04/16 at 22:00 Magnesium Sulfate/ Dextrose (Magnesium Sulfate 1 Gm/D5W) 100 ml @ 100 mls/hr PRN PRN IVPB PENDING LAB VALUE Last administered on 11/05/16 06:21; Admin Dose 100 MLS/HR; Start 11/04/16 at 23:30 Diagnostic Test (Pha) (Accu-Chek) 1 ea 02 XX ; Start 11/07/16 at 02:00 Diagnostic Test (Pha) (Accu-Chek) 1 ea 02 XX ; Start 11/07/16 at 02:00 Miscellaneous Information 1 ea NOTE XX ; Start 11/06/16 at 14:30 Glucose (Glutose) 15 gm Q15M PRN PO DECREASED GLUCOSE; Start 11/06/16 at 14:30 Glucose (Glutose) 22.5 gm Q15M PRN PO DECREASED GLUCOSE; Start 11/06/16 at 14: 30 Dextrose (D50w Syringe) 25 ml Q15M PRN IV DECREASED GLUCOSE; Start 11/06/16 at 14:30 Dextrose (D50w Syringe) 50 ml Q15M PRN IV DECREASED GLUCOSE; Start 11/06/16 at 14:30 Glucagon (Glucagen) 1 mg Q15M PRN [place] DECREASED GLUCOSE; Start 11/06/16 at 14:30 Glucose (Glutose) 15 gm Q15M PRN BUCCAL DECREASED GLUCOSE; Start 11/06/16 at 14 :30 Enoxaparin Sodium (Lovenox) 40 mg DAILY SC Last administered on 11/11/16t 08:32 ; Admin Dose 40 MG; Start 11/07/16 at 09:00 Morphine Sulfate (morphine) 4 mg Q4H PRN IV PAIN; Start 11/09/16 at 21:30 Assessment/Plan Chief Complaint/Hosp Course Assessment: CAD: s/p CABG Abnormal EKG s/p post op hypoxemic resp failure; Extubated now hx of HTN: anemia DM: Recommendation/plan: cont post op care cont ASA STATIN betablocker as tolerated. dc planning when ok with IM / CT surgery outpt cardiology follow up with DR Castillo THANK YOU BEBETO JAMES MD [facility] Problems: BEBETO JAMES MD Nov 12, 2016 08:25
[2016-11-12] MEDS: FAMOTIDINE 20 MG TAB PO SCH (08:53)
[2016-11-12] MEDS: ASPIRIN 81 MG TAB PO SCH (08:53)
[2016-11-12] MEDS: METOPROLOL 25 MG TAB PO SCH ×2 (08:54→21:11)
[2016-11-12] MEDS: ENOXAPARIN 40 MG/0.4 ML SYG SC SCH (09:00)
--- NOTE | 2016-11-12 09:08 | PN ---
Date/Time of Note Date/Time of Note DATE: 11/12/16 TIME: 09:08 Assessment/Plan VTE Prophylaxis VTE Prophylaxis Intervention: LMWH Lines/Catheters [facility]from [facility] Saline Lock Urinary Cath still in place: No Assessment/Plan Assessment/Plan 1. CAD s/p CABG - Patient doing well and ambulating around room with slight dyspnea and lightheadedness but states tolerable - CT surgery and Cardiology on board. Recommendations appreciated - Continue post op care - Encouraged ambulation - Will await CT surgery recommendations for d/c planning - Cleared by Cardiology and Pulmonology for d/c home. Patient plans to see his Senior Power Scheduler next Thursday 2. SOB secondary to #1 - Ambulation - incentive spirometry - Pulmonology on board and recommendations appreciated. Okay for d/c planning from their standpoint 3. HTN - stable. SBP in the 100-110s 4. DM - A1c 5.5 - Counseled patient on diet control - Will not need to be started on any medications 5. Anemia - no signs of active bleeding - H/H stable 6. Disposition - Awaiting CT surgery clearance for d/c home Subjective 24 Hr Interval Summary Free Text/Dictation Patient doing well and still experiencing slight dyspnea with exertion but states its tolerable. Denies any new complaints and no acute overnight events. Voiced concerns about his LLE and wounds from chest tubes that appear to be healing well. Encouraged to use compression stockings during the day to help with LLE swelling. Also concerned about bruising of abdominal area due to Lovenox. AM dose held. Exam/Review of Systems Vital Signs Vitals Vital Signs Date Time Temp Pulse Resp B/P Pulse Ox O2 Delivery O2 Flow Rate FiO2 11/12/16 08:31 90 11/12/16 08:01 98.2 20 110/53 98 11/11/16 02:35 21 11/08/16 17:58 Room Air 11/08/16 08:00 2.0 Intake and Output 11/11/16 11/11/16 11/12/16 15:00 23:00 07:00 Intake Total 950 ml 300 ml Balance 950 ml 300 ml Exam General: NAD, pleasant and cooperative Chest: well healing midline incision, no drainage or discharge CVS: regular rate and rhythm. no murmurs Lungs: CTA b/l. no wheezes or rhonchi Abd: soft, NT, ND, no rebound or guarding. healing incisions from chest tubes with no signs of infection Ext: no cyanosis, or clubbing. Swelling of LLE with tenderness to palpation at site of incision. pulses intact. Results Result Diagram: 11/11/16 1152 11/11/16 1152 Results 24 hrs Laboratory Tests Test 11/11/16 11:52 11/11/16 12:02 11/11/16 17:15 11/11/16 19:52 White Blood Count 12.0 H Red Blood Count 3.40 L Hemoglobin 9.5 L Hematocrit 31.3 L Mean Corpuscular Volume 92.1 Mean Corpuscular Hemoglobin 27.9 L Mean Corpuscular Hemoglobin Concent 30.4 L Red Cell Distribution Width 15.2 H Platelet Count 239 Mean Platelet Volume 9.4 Neutrophils % 71.9 Segmented Neutrophils % (Manual) 70 Band Neutrophils % (Manual) 2 Lymphocytes % 11.8 L Lymphocytes % (Manual) 15 Monocytes % 8.6 Monocytes % (Manual) 8 Eosinophils % 1.6 Eosinophils % (Manual) 1 Basophils % 0.5 Basophils % (Manual) 1 Metamyelocytes % (manual) 1 H Myelocytes % (Manual) 1 H Nucleated Red Blood Cells % 4 H Neutrophils # 8.6 H Neutrophils # (Manual) 8.4 H Band Neutrophils # 0.2 Absolute Lymphocytes (Manual) 1.8 Lymphocytes # 1.4 Monocytes # 1.0 H Absolute Monocytes (Manual) 0.9 Eosinophils # 0.2 Basophils # 0.1 Basophils # (Manual) 0.1 H Metamyelocytes # 0.1 H Myelocytes # 0.1 H Nucleated Red Blood Cells # 0.3 H Platelet Estimate NORMAL Polychromasia 3+ Poikilocytosis 3+ Anisocytosis 1+ Microcytosis 1+ Sodium Level 139 Potassium Level 4.0 Chloride Level 108 Carbon Dioxide Level 26 Anion Gap 9 Blood Urea Nitrogen 12 Creatinine 0.79 Glucose Level 105 Calcium Level 8.4 Bedside Glucose 102 95 136 Test 11/12/16 08:20 Bedside Glucose 89 Medications Medications Current Medications Atorvastatin Calcium (Lipitor) 40 mg HS PO Last administered on 11/11/16 20:10 ; Admin Dose 40 MG; Start 10/31/16 at 21:00 Metoprolol Tartrate (Lopressor) 25 mg BID PO Last administered on 11/12/16 08: 54; Admin Dose 25 MG; Start 10/31/16 at 21:00 Aspirin (Aspirin) 81 mg DAILY PO Last administered on 11/12/16 08:53; Admin Dose 81 MG; Start 11/01/16 at 09:00 Famotidine (Pepcid) 20 mg DAILY PO Last administered on 11/12/16 08:53; Admin Dose 20 MG; Start 11/03/16 at 18:00 Acetaminophen (Tylenol Tab) 650 mg Q6H PRN PO PAIN AND OR ELEVATED TEMP; Start 11/03/16 at 17:00 Ondansetron HCl (Zofran Inj) 4 mg Q6H PRN IV NAUSEA AND/OR VOMITING Last administered on 11/07/16 22:14; Admin Dose 4 MG; Start 11/03/16 at 17:00 Acetaminophen/ Hydrocodone Bitart ([place] (5/325)) 1 tab Q6H PRN PO PAIN LEVEL 8 -10 Last administered on 11/11/16 20:15; Admin Dose 1 TAB; Start 11/03/16 at 17 :00 Hydromorphone HCl (Dilaudid) 0.2 mg Q15M PRN IV PAIN LEVEL 1-5 Last administered on 11/07/16 22:15; Admin Dose 0.2 MG; Start 11/04/16 at 22:00 Hydromorphone HCl (Dilaudid) 0.4 mg Q15M PRN IV PAIN LEVEL 6-10 Last administered on 11/07/16 04:15; Admin Dose 0.4 MG; Start 11/04/16 at 22:00 Hydromorphone HCl (Dilaudid) 0.2 mg Q1H PRN IV PAIN LEVEL 1-5 Last administered on 11/08/16 21:57; Admin Dose 0.2 MG; Start 11/04/16 at 22:00 Hydromorphone HCl (Dilaudid) 0.4 mg Q1H PRN IV PAIN LEVEL 6-10; Start 11/04/16 at 22:00 Acetaminophen 650 mg 650 mg Q3H PRN [place] ELEVATED TEMPERATURE; Start 11/04/16 at 22:00 Magnesium Sulfate/ Dextrose (Magnesium Sulfate 1 Gm/D5W) 100 ml @ 100 mls/hr PRN PRN IVPB PENDING LAB VALUE Last administered on 11/05/16 06:21; Admin Dose 100 MLS/HR; Start 11/04/16 at 23:30 Diagnostic Test (Pha) (Accu-Chek) 1 ea 02 XX ; Start 11/07/16 at 02:00 Diagnostic Test (Pha) (Accu-Chek) 1 ea 02 XX ; Start 11/07/16 at 02:00 Miscellaneous Information 1 ea NOTE XX ; Start 11/06/16 at 14:30 Glucose (Glutose) 15 gm Q15M PRN PO DECREASED GLUCOSE; Start 11/06/16 at 14:30 Glucose (Glutose) 22.5 gm Q15M PRN PO DECREASED GLUCOSE; Start 11/06/16 at 14: 30 Dextrose (D50w Syringe) 25 ml Q15M PRN IV DECREASED GLUCOSE; Start 11/06/16 at 14:30 Dextrose (D50w Syringe) 50 ml Q15M PRN IV DECREASED GLUCOSE; Start 11/06/16 at 14:30 Glucagon (Glucagen) 1 mg Q15M PRN IM DECREASED GLUCOSE; Start 11/06/16 at 14:30 Glucose (Glutose) 15 gm Q15M PRN BUCCAL DECREASED GLUCOSE; Start 11/06/16 at 14 :30 Enoxaparin Sodium (Lovenox) 40 mg DAILY SC Last administered on 11/11/16t 08:32 ; Admin Dose 40 MG; Start 11/07/16 at 09:00 Morphine Sulfate (morphine) 4 mg Q4H PRN IV PAIN; Start 11/09/16 at 21:30 ETHEL CANNON MD Nov 12, 2016 09:08
[2016-11-12 11:00] LABS: ABNORMAL IP MESSAGE 1; BASOPHILS % 0.4 % (0.0-2.0); EOSINOPHILS # 0.3 10^3/ul (0.0-0.5); EOSINOPHILS % 2.3 % (0.0-7.0); HEMATOCRIT 30.8 % (42.0-52.0); HEMOGLOBIN 9.3 g/dl (14.0-18.0); LYMPHOCYTES # 1.1 10^3/ul (0.8-2.9); LYMPHOCYTES % 10.1 % (15.0-51.0); MEAN CORPUSCULAR HEMOGLOBIN 27.6 pg (29.0-33.0); MEAN CORPUSCULAR HGB CONC 30.2 g/dl (32.0-37.0); MEAN CORPUSCULAR VOLUME 91.4 fl (82.0-101.0); MEAN PLATELET VOLUME 9.1 fl (7.4-10.4); MONOCYTE # 0.9 10^3/ul (0.3-0.9); NEUTROPHIL # 8.2 10^3/ul (1.6-7.5); NUCLEATED RED BLOOD CELLS # 0.1 10^3/ul (0.0-0.0); NUCLEATED RED BLOOD CELLS% 1.2 /100WBC (0.0-0.0); PLATELET COUNT 267 10^3/UL (140-415); POSITIVE DIFF @See below; RED BLOOD COUNT 3.37 10^6/ul (4.70-6.10); RED CELL DISTRIBUTION WIDTH 15.3 % (11.5-14.5); WHITE BLOOD COUNT 11.1 10^3/ul (4.8-10.8)
[2016-11-12 11:17] LABS: INR 1.05; PROTIME 13.7 Sec (12.2-14.2); PT RATIO 1.1
[2016-11-12 11:20] LABS: CALCIUM 8.8 mg/dl (8.4-10.2); CREATININE 0.76 mg/dl (0.61-1.24); POTASSIUM 4.5 mmol/L (3.5-5.1)
[2016-11-12] MEDS: ATORVASTATIN 40 MG TAB PO SCH (21:10)
[2016-11-13] VITALS (13 sets, daily range): BP systolic 89–170; BP diastolic 52–62; PULSE 72–84; RESP 17–20
[2016-11-13] MEDS: ZOLPIDEM 5 MG TAB PO PRN (01:01)
[2016-11-13] MEDS: ACCU-CHEK XX SCH ×2 (02:35)
[2016-11-13] MEDS: INSULIN ASPART [NOVOLOG] 3 ML PEN SC SCH ×4 (07:55→21:00)
--- NOTE | 2016-11-13 08:05 | CONS ---
Date/Time of Note Date/Time of Note DATE: 11/13/16 TIME: 08:04 Consult Date/Type/Reason Admit Date/Time Oct 31, 2016 at 11:41 Type of Consultation: cardiology Subjective CARDIOLOGY FOLLOW UP NOTE (covering for DR WATSON) . Discussed with the staff and rhythm was reviewed. pt remains in NSR. NO AFIB his chest tubes removed 11/08. HE has no significant chest wall pain he has mild DORADO. Subjective: General: NO acute distress HEENT: NC/AT. pupils are equal. round. NECK:. no stridor. CV: RRR. systolic murmur; no gallop or rubs. PULM: no wheezing or rhonchi. chest : s/p sternotomy.. GI: SOFT, NT, ND, no rebound or guarding Extremity: trace B/L LE edema. no clubbing. neuro: awake and alert. responds appropriately Psych: calm and pleasant rectal: deferred Objective Vital Signs Date Time Temp Pulse Resp B/P Pulse Ox O2 Delivery O2 Flow Rate FiO2 11/13/16 07:45 98.3 83 20 106/55 96 11/11/16 02:35 21 Intake and Output 11/12/16 11/12/16 11/13/16 15:00 23:00 07:00 Intake Total 950 ml 250 ml Balance 950 ml 250 ml Results/Medications Result Diagram: 11/12/16 1046 11/12/16 1046 Results 24 hrs Laboratory Tests Test 11/12/16 08:20 11/12/16 10:46 11/12/16 12:27 11/12/16 17:59 Bedside Glucose 89 106 90 White Blood Count 11.1 H Red Blood Count 3.37 L Hemoglobin 9.3 L Hematocrit 30.8 L Mean Corpuscular Volume 91.4 Mean Corpuscular Hemoglobin 27.6 L Mean Corpuscular Hemoglobin Concent 30.2 L Red Cell Distribution Width 15.3 H Platelet Count 267 Mean Platelet Volume 9.1 Neutrophils % 74.0 Lymphocytes % 10.1 L Monocytes % 8.0 Eosinophils % 2.3 Basophils % 0.4 Nucleated Red Blood Cells % 1.2 H Neutrophils # 8.2 H Lymphocytes # 1.1 Monocytes # 0.9 Eosinophils # 0.3 Basophils # 0.0 Nucleated Red Blood Cells # 0.1 H Prothrombin Time 13.7 Prothrombin Time Ratio 1.1 INR International Normalized Ratio 1.05 Sodium Level 136 Potassium Level 4.5 Chloride Level 103 Carbon Dioxide Level 27 Anion Gap 11 Blood Urea Nitrogen 13 Creatinine 0.76 Glucose Level 148 # Calcium Level 8.8 Test 11/12/16 21:08 Bedside Glucose 118 Medications Current Medications Atorvastatin Calcium (Lipitor) 40 mg HS PO Last administered on 11/12/16 21:10 ; Admin Dose 40 MG; Start 10/31/16 at 21:00 Metoprolol Tartrate (Lopressor) 25 mg BID PO Last administered on 11/12/16 21: 11; Admin Dose 25 MG; Start 10/31/16 at 21:00 Aspirin (Aspirin) 81 mg DAILY PO Last administered on 11/12/16 08:53; Admin Dose 81 MG; Start 11/01/16 at 09:00 Famotidine (Pepcid) 20 mg DAILY PO Last administered on 11/12/16 08:53; Admin Dose 20 MG; Start 11/03/16 at 18:00 Acetaminophen (Tylenol Tab) 650 mg Q6H PRN PO PAIN AND OR ELEVATED TEMP; Start 11/03/16 at 17:00 Ondansetron HCl (Zofran Inj) 4 mg Q6H PRN IV NAUSEA AND/OR VOMITING Last administered on 11/07/16 22:14; Admin Dose 4 MG; Start 11/03/16 at 17:00 Acetaminophen/ Hydrocodone Bitart ([place] (5/325)) 1 tab Q6H PRN PO PAIN LEVEL 8 -10 Last administered on 11/11/16 20:15; Admin Dose 1 TAB; Start 11/03/16 at 17 :00 Hydromorphone HCl (Dilaudid) 0.2 mg Q15M PRN IV PAIN LEVEL 1-5 Last administered on 11/07/16 22:15; Admin Dose 0.2 MG; Start 11/04/16 at 22:00 Hydromorphone HCl (Dilaudid) 0.4 mg Q15M PRN IV PAIN LEVEL 6-10 Last administered on 11/07/16 04:15; Admin Dose 0.4 MG; Start 11/04/16 at 22:00 Hydromorphone HCl (Dilaudid) 0.2 mg Q1H PRN IV PAIN LEVEL 1-5 Last administered on 11/08/16 21:57; Admin Dose 0.2 MG; Start 11/04/16 at 22:00 Hydromorphone HCl (Dilaudid) 0.4 mg Q1H PRN IV PAIN LEVEL 6-10; Start 11/04/16 at 22:00 Acetaminophen 650 mg 650 mg Q3H PRN [place] ELEVATED TEMPERATURE; Start 11/04/16 at 22:00 Magnesium Sulfate/ Dextrose (Magnesium Sulfate 1 Gm/D5W) 100 ml @ 100 mls/hr PRN PRN IVPB PENDING LAB VALUE Last administered on 11/05/16 06:21; Admin Dose 100 MLS/HR; Start 11/04/16 at 23:30 Diagnostic Test (Pha) (Accu-Chek) 1 ea 02 XX Last administered on 11/13/16 02: 35; Admin Dose 1 EA; Start 11/07/16 at 02:00 Diagnostic Test (Pha) (Accu-Chek) 1 ea 02 XX Last administered on 11/13/16 02: 35; Admin Dose 1 EA; Start 11/07/16 at 02:00 Miscellaneous Information 1 ea NOTE XX ; Start 11/06/16 at 14:30 Glucose (Glutose) 15 gm Q15M PRN PO DECREASED GLUCOSE; Start 11/06/16 at 14:30 Glucose (Glutose) 22.5 gm Q15M PRN PO DECREASED GLUCOSE; Start 11/06/16 at 14: 30 Dextrose (D50w Syringe) 25 ml Q15M PRN IV DECREASED GLUCOSE; Start 11/06/16 at 14:30 Dextrose (D50w Syringe) 50 ml Q15M PRN IV DECREASED GLUCOSE; Start 11/06/16 at 14:30 Glucagon (Glucagen) 1 mg Q15M PRN IM DECREASED GLUCOSE; Start 11/06/16 at 14:30 Glucose (Glutose) 15 gm Q15M PRN BUCCAL DECREASED GLUCOSE; Start 11/06/16 at 14 :30 Enoxaparin Sodium (Lovenox) 40 mg DAILY SC Last administered on 11/11/16 08:32 ; Admin Dose 40 MG; Start 11/07/16 at 09:00 Morphine Sulfate (morphine) 4 mg Q4H PRN IV PAIN; Start 11/09/16 at 21:30 Assessment/Plan Chief Complaint/Hosp Course Assessment: CAD: s/p CABG Abnormal EKG s/p post op hypoxemic resp failure; Extubated now hx of HTN: anemia DM: Recommendation/plan: cont post op care cont ASA STATIN betablocker as tolerated. dc planning when ok with CT surgery outpt cardiology follow up with DR Castillo THANK YOU BEBETO JAMES MD [facility] Problems: BEBETO JAMES MD Nov 13, 2016 08:05
[2016-11-13] MEDS: FAMOTIDINE 20 MG TAB PO SCH (08:52)
[2016-11-13] MEDS: METOPROLOL 25 MG TAB PO SCH ×2 (08:52→21:04)
[2016-11-13] MEDS: ASPIRIN 81 MG TAB PO SCH (08:52)
[2016-11-13] MEDS: ENOXAPARIN 40 MG/0.4 ML SYG SC SCH (09:00)
--- NOTE | 2016-11-13 10:26 | PN ---
Date/Time of Note Date/Time of Note DATE: 11/13/16 TIME: 10:26 Assessment/Plan VTE Prophylaxis VTE Prophylaxis Intervention: other Lines/Catheters IV Catheter Type (from Nrs): Saline Lock Urinary Cath still in place: No Assessment/Plan Assessment/Plan 1. CAD s/p CABG - Patient doing well and ambulating around room - CT surgery and Cardiology on board. Recommendations appreciated - Continue post op care - Encouraged ambulation - Will await CT surgery recommendations for d/c planning - Cleared by Cardiology and Pulmonology for d/c home. Patient plans to see his School Psychologist next Thursday. - Still experiencing discomfort LLE with numbness at site of incision which has been preventing him from sleeping. Will try gabapentin 300mg qHS 2. SOB secondary to #1 - Ambulation - incentive spirometry - Pulmonology on board and recommendations appreciated. Okay for d/c planning from their standpoint. Will need to follow up for outpt PFTs 3. HTN - stable. SBP in the 100-110s 4. DM - A1c 5.5 - Counseled patient on diet control - Will not need to be started on any medications 5. Anemia - no signs of active bleeding - H/H stable 6. Disposition - Awaiting CT surgery clearance for d/c home Subjective 24 Hr Interval Summary Free Text/Dictation patient doing well and trying to ambulate often with FWW. Concerned about incision sites and pain LLQ. No acute overnight events. Exam/Review of Systems Vital Signs Vitals Vital Signs Date Time Temp Pulse Resp B/P Pulse Ox O2 Delivery O2 Flow Rate FiO2 11/13/16 08:23 77 11/13/16 07:45 98.3 20 106/55 96 11/11/16 02:35 21 Intake and Output 11/12/16 11/12/16 11/13/16 15:00 23:00 07:00 Intake Total 950 ml 250 ml Balance 950 ml 250 ml Exam General: NAD, pleasant and cooperative Chest: well healing midline incision, no drainage or discharge CVS: regular rate and rhythm. no murmurs Lungs: CTA b/l. no wheezes or rhonchi Abd: soft, NT, ND, no rebound or guarding. healing incisions from chest tubes with no signs of infection Ext: no cyanosis, or clubbing. improving swelling of LLE with tenderness to palpation at site of incision. pulses intact. Results Result Diagram: 11/12/16 1046 11/12/16 1046 Results 24 hrs Laboratory Tests Test 11/12/16 10:46 11/12/16 12:27 11/12/16 17:59 11/12/16 21:08 White Blood Count 11.1 H Red Blood Count 3.37 L Hemoglobin 9.3 L Hematocrit 30.8 L Mean Corpuscular Volume 91.4 Mean Corpuscular Hemoglobin 27.6 L Mean Corpuscular Hemoglobin Concent 30.2 L Red Cell Distribution Width 15.3 H Platelet Count 267 Mean Platelet Volume 9.1 Neutrophils % 74.0 Lymphocytes % 10.1 L Monocytes % 8.0 Eosinophils % 2.3 Basophils % 0.4 Nucleated Red Blood Cells % 1.2 H Neutrophils # 8.2 H Lymphocytes # 1.1 Monocytes # 0.9 Eosinophils # 0.3 Basophils # 0.0 Nucleated Red Blood Cells # 0.1 H Prothrombin Time 13.7 Prothrombin Time Ratio 1.1 INR International Normalized Ratio 1.05 Sodium Level 136 Potassium Level 4.5 Chloride Level 103 Carbon Dioxide Level 27 Anion Gap 11 Blood Urea Nitrogen 13 Creatinine 0.76 Glucose Level 148 # Calcium Level 8.8 Bedside Glucose 106 90 118 Test 11/13/16 08:11 Bedside Glucose 97 Medications Medications Current Medications Atorvastatin Calcium (Lipitor) 40 mg HS PO Last administered on 11/12/16 21:10 ; Admin Dose 40 MG; Start 10/31/16 at 21:00 Metoprolol Tartrate (Lopressor) 25 mg BID PO Last administered on 11/13/16 08: 52; Admin Dose 25 MG; Start 10/31/16 at 21:00 Aspirin (Aspirin) 81 mg DAILY PO Last administered on 11/13/16 08:52; Admin Dose 81 MG; Start 11/01/16 at 09:00 Famotidine (Pepcid) 20 mg DAILY PO Last administered on 11/13/16 08:52; Admin Dose 20 MG; Start 11/03/16 at 18:00 Acetaminophen (Tylenol Tab) 650 mg Q6H PRN PO PAIN AND OR ELEVATED TEMP; Start 11/03/16 at 17:00 Ondansetron HCl (Zofran Inj) 4 mg Q6H PRN IV NAUSEA AND/OR VOMITING Last administered on 11/07/16 22:14; Admin Dose 4 MG; Start 11/03/16 at 17:00 Acetaminophen/ Hydrocodone Bitart ([place] (5/325)) 1 tab Q6H PRN PO PAIN LEVEL 8 -10 Last administered on 11/11/16 20:15; Admin Dose 1 TAB; Start 11/03/16 at 17 :00 Hydromorphone HCl (Dilaudid) 0.2 mg Q15M PRN IV PAIN LEVEL 1-5 Last administered on 11/07/16 22:15; Admin Dose 0.2 MG; Start 11/04/16 at 22:00 Hydromorphone HCl (Dilaudid) 0.4 mg Q15M PRN IV PAIN LEVEL 6-10 Last administered on 11/07/16 04:15; Admin Dose 0.4 MG; Start 11/04/16 at 22:00 Hydromorphone HCl (Dilaudid) 0.2 mg Q1H PRN IV PAIN LEVEL 1-5 Last administered on 11/08/16 21:57; Admin Dose 0.2 MG; Start 11/04/16 at 22:00 Hydromorphone HCl (Dilaudid) 0.4 mg Q1H PRN IV PAIN LEVEL 6-10; Start 11/04/16 at 22:00 Acetaminophen 650 mg 650 mg Q3H PRN [place] ELEVATED TEMPERATURE; Start 11/04/16 at 22:00 Magnesium Sulfate/ Dextrose (Magnesium Sulfate 1 Gm/D5W) 100 ml @ 100 mls/hr PRN PRN IVPB PENDING LAB VALUE Last administered on 11/05/16 06:21; Admin Dose 100 MLS/HR; Start 11/04/16 at 23:30 Diagnostic Test (Pha) (Accu-Chek) 1 ea 02 XX Last administered on 11/13/16 02: 35; Admin Dose 1 EA; Start 11/07/16 at 02:00 Diagnostic Test (Pha) (Accu-Chek) 1 ea 02 XX Last administered on 11/13/16 02: 35; Admin Dose 1 EA; Start 11/07/16 at 02:00 Miscellaneous Information 1 ea NOTE XX ; Start 11/06/16 at 14:30 Glucose (Glutose) 15 gm Q15M PRN PO DECREASED GLUCOSE; Start 11/06/16 at 14:30 Glucose (Glutose) 22.5 gm Q15M PRN PO DECREASED GLUCOSE; Start 11/06/16 at 14: 30 Dextrose (D50w Syringe) 25 ml Q15M PRN IV DECREASED GLUCOSE; Start 11/06/16 at 14:30 Dextrose (D50w Syringe) 50 ml Q15M PRN IV DECREASED GLUCOSE; Start 11/06/16 at 14:30 Glucagon (Glucagen) 1 mg Q15M PRN IM DECREASED GLUCOSE; Start 11/06/16 at 14:30 Glucose (Glutose) 15 gm Q15M PRN BUCCAL DECREASED GLUCOSE; Start 11/06/16 at 14 :30 Enoxaparin Sodium (Lovenox) 40 mg DAILY SC Last administered on 11/11/16t 08:32 ; Admin Dose 40 MG; Start 11/07/16 at 09:00 Morphine Sulfate (morphine) 4 mg Q4H PRN IV PAIN; Start 11/09/16 at 21:30 ETHEL CANNON MD Nov 13, 2016 10:26
[2016-11-13 11:13] LABS: BASOPHIL # 0.1 10^3/ul (0.0-0.1); BASOPHILS % 0.5 % (0.0-2.0); EOSINOPHILS # 0.3 10^3/ul (0.0-0.5); EOSINOPHILS % 2.3 % (0.0-7.0); HEMATOCRIT 31.5 % (42.0-52.0); HEMOGLOBIN 9.7 g/dl (14.0-18.0); LYMPHOCYTES # 1.3 10^3/ul (0.8-2.9); LYMPHOCYTES % 11.4 % (15.0-51.0); MEAN CORPUSCULAR HEMOGLOBIN 28.1 pg (29.0-33.0); MEAN CORPUSCULAR HGB CONC 30.8 g/dl (32.0-37.0); MEAN CORPUSCULAR VOLUME 91.3 fl (82.0-101.0); MEAN PLATELET VOLUME 9.1 fl (7.4-10.4); MONOCYTE # 0.9 10^3/ul (0.3-0.9); MONOCYTES % 8.1 % (0.0-11.0); NEUTROPHIL # 8.1 10^3/ul (1.6-7.5); NEUTROPHILS % 73.1 % (39.0-77.0); NUCLEATED RED BLOOD CELLS # 0.1 10^3/ul (0.0-0.0); NUCLEATED RED BLOOD CELLS% 0.6 /100WBC (0.0-0.0); PLATELET COUNT 281 10^3/UL (140-415); RED BLOOD COUNT 3.45 10^6/ul (4.70-6.10); RED CELL DISTRIBUTION WIDTH 15.3 % (11.5-14.5)
[2016-11-13 11:42] LABS: CALCIUM 8.7 mg/dl (8.4-10.2); CREATININE 0.71 mg/dl (0.61-1.24); POTASSIUM 4.2 mmol/L (3.5-5.1)
--- NOTE | 2016-11-13 13:38 | PN ---
DATE: 11/13/2016 REASON FOR FOLLOW UP: Respiratory distress. SUBJECTIVE DATA: Patient remains stable this morning. No new events. OBJECTIVE DATA: VITAL SIGNS: Vital signs remain within normal limits. He is currently on room air O2 without significant desaturation. HEART: S1, S2. No added sounds or murmurs. CHEST: Diminished air entry bilaterally. ABDOMEN: Soft, nontender. No guarding or rebound. EXTREMITIES: No clubbing, cyanosis or edema. NEUROLOGIC: Noted to be grossly intact. No focal deficits. ASSESSMENT: 1. Status post coronary artery bypass graft surgery. 2. Resolving hypoxemia. 3. Resolving deconditioning. PLAN: 1. Continue incentive spirometry. 2. Discharge okay from pulmonary standpoint. 3. Outpatient pulmonary function testing and follow up with me. Dictated By: Magen Rosario MD /laura/kat /Document#: [id number]
[2016-11-13] MEDS ORDERED: GABAPENTIN 300 MG CAP PO SCH (21:00)
[2016-11-13] MEDS: ATORVASTATIN 40 MG TAB PO SCH (21:03)
[2016-11-14] VITALS (9 sets, daily range): BP systolic 89–107; BP diastolic 45–59; PULSE 70–92; RESP 18–20
[2016-11-14] MEDS: INSULIN ASPART [NOVOLOG] 3 ML PEN SC SCH ×2 (07:55→11:50)
[2016-11-14] MEDS ORDERED: GABA300C16 PO (09:25)
[2016-11-14] MEDS ORDERED: ASPI81TA3 PO (09:25)
[2016-11-14] MEDS ORDERED: ATOR40TA68 PO (09:25)
[2016-11-14] MEDS ORDERED: METO-448 PO (09:25)
--- NOTE | 2016-11-14 09:25 | PDOCDIS ---
Discharge Instructions DIAGNOSIS Discharge Diagnosis Coronary artery disease s/p CABG CONDITION Patient Condition: Good HOME CARE INSTRUCTIONS: Diet Instructions: Low Fat /CholesterolSpecial Diet: 1800 debra ADA ACTIVITY: Activity Restrictions: Slowly Increase Activity Avoid heavy lifting Do not operate Machinery Avoid Heavy Housework FOLLOW UP/APPOINTMENTS Follow-up Plan 1. Please follow up with your Courtroom Deputy, Dr. Devries, CT Surgeon, Dr. Oleary, and Pecan Cleaner Dr Rosario in the next week. 2. Take all medications as prescribed 3. Take Gabapentin 300mg at night for nerve pain and you can be titrated up. Please ask your PCP to assist with increasing medication dose 4. Follow a low sodium, low cholesterol diet. Best to increase intake of fruits and vegetables and lean protein 5. You will need to be cleared to drive by your PCP or one of the physicians you are following up with 6. If you experiencing chest pain, shortness of breath, loss of consciousness, or any other concerning symptoms, return to the ED REFERRALS Other Referrals Magen Rosario MD Specialty: Pecan Cleaner Office Address [address] [place] [address] Office Hayden Oleary MD Specialty: Cardiothoracic Surgery Office Address [address] [place] [address] Office Jeffrey Devries MD Specialty: Interventional Cardiology Office Address [address] [place] [address] Office SCHOOL/WORK RELEASE School/Work Release Comment: May return to work when cleared by Courtroom Deputy or CT surgeon ETHEL CANNON MD Nov 14, 2016 09:25
[2016-11-14] MEDS ORDERED: DOCU-144 PO (09:35)
--- NOTE | 2016-11-14 09:50 | PN ---
Date/Time of Note Date/Time of Note DATE: 11/14/16 TIME: 09:50 Assessment/Plan VTE Prophylaxis VTE Prophylaxis Intervention: anti-embolic stocking Lines/Catheters IV Catheter Type (from Nrs): Saline Lock Urinary Cath still in place: No Assessment/Plan Assessment/Plan 1. CAD s/p CABG - Patient doing well and ambulating around room with no issues - CT surgery and Cardiology on board. Recommendations appreciated. Will need to follow up as outpatient in 1 week - Cleared by CT surgery, Cardiology and Pulmonology for d/c home. 2. LLE neuropathy - Improving on Gabapentin 300mg qhs. Advised to follow up with PCP for dose titration 3. SOB secondary to #1 - Ambulation - incentive spirometry - Pulmonology on board and recommendations appreciated. Okay for d/c planning from their standpoint. Will need to follow up for outpt PFTs 4. HTN - stable 5. DM - A1c 5.5 - Counseled patient on diet control - no medications needed 6. Anemia - no signs of active bleeding - H/H stable 7. Disposition - Cleared for discharge home by specialists. Subjective 24 Hr Interval Summary Free Text/Dictation Patient doing well and states slept really well last night. Believes the Gabapentin is starting to help his LE discomfort. Denies any new events and ready for discharge home. Exam/Review of Systems Vital Signs Vitals Vital Signs Date Time Temp Pulse Resp B/P Pulse Ox O2 Delivery O2 Flow Rate FiO2 11/14/16 08:27 92 11/14/16 07:42 98.3 20 98/49 96 11/11/16 02:35 21 Intake and Output 11/13/16 11/13/16 11/14/16 15:00 23:00 07:00 Intake Total 1100 ml 400 ml Balance 1100 ml 400 ml Exam General: NAD, pleasant, awake and alert Chest: well healing midline incision, no drainage or discharge CVS: regular rate and rhythm. no murmurs Lungs: CTA b/l. no wheezes or rhonchi Abd: soft, NT, ND, no rebound or guarding. healing incisions from chest tubes with no signs of infection Ext: no cyanosis, or clubbing. improving swelling of LLE with tenderness to palpation at site of incision Results Result Diagram: 11/13/16 1102 11/13/16 1102 Results 24 hrs Laboratory Tests Test 11/13/16 11:02 11/13/16 12:52 11/13/16 17:43 11/13/16 21:00 White Blood Count 11.0 H Red Blood Count 3.45 L Hemoglobin 9.7 L Hematocrit 31.5 L Mean Corpuscular Volume 91.3 Mean Corpuscular Hemoglobin 28.1 L Mean Corpuscular Hemoglobin Concent 30.8 L Red Cell Distribution Width 15.3 H Platelet Count 281 Mean Platelet Volume 9.1 Neutrophils % 73.1 Lymphocytes % 11.4 L Monocytes % 8.1 Eosinophils % 2.3 Basophils % 0.5 Nucleated Red Blood Cells % 0.6 H Neutrophils # 8.1 H Lymphocytes # 1.3 Monocytes # 0.9 Eosinophils # 0.3 Basophils # 0.1 Nucleated Red Blood Cells # 0.1 H Sodium Level 138 Potassium Level 4.2 Chloride Level 105 Carbon Dioxide Level 27 Anion Gap 10 Blood Urea Nitrogen 13 Creatinine 0.71 Glucose Level 99 # Calcium Level 8.7 Bedside Glucose 104 94 104 Test 11/14/16 08:25 Bedside Glucose 95 Medications Medications Current Medications Atorvastatin Calcium (Lipitor) 40 mg HS PO Last administered on 11/13/16 21:03 ; Admin Dose 40 MG; Start 10/31/16 at 21:00 Metoprolol Tartrate (Lopressor) 25 mg BID PO Last administered on 11/13/16 21: 04; Admin Dose 25 MG; Start 10/31/16 at 21:00 Aspirin (Aspirin) 81 mg DAILY PO Last administered on 11/13/16 08:52; Admin Dose 81 MG; Start 11/01/16 at 09:00 Famotidine (Pepcid) 20 mg DAILY PO Last administered on 11/13/16 08:52; Admin Dose 20 MG; Start 11/03/16 at 18:00 Acetaminophen (Tylenol Tab) 650 mg Q6H PRN PO PAIN AND OR ELEVATED TEMP; Start 11/03/16 at 17:00 Ondansetron HCl (Zofran Inj) 4 mg Q6H PRN IV NAUSEA AND/OR VOMITING Last administered on 11/07/16 22:14; Admin Dose 4 MG; Start 11/03/16 at 17:00 Acetaminophen/ Hydrocodone Bitart ([place] (5/325)) 1 tab Q6H PRN PO PAIN LEVEL 8 -10 Last administered on 11/11/16 20:15; Admin Dose 1 TAB; Start 11/03/16 at 17 :00 Hydromorphone HCl (Dilaudid) 0.2 mg Q15M PRN IV PAIN LEVEL 1-5 Last administered on 11/07/16 22:15; Admin Dose 0.2 MG; Start 11/04/16 at 22:00 Hydromorphone HCl (Dilaudid) 0.4 mg Q15M PRN IV PAIN LEVEL 6-10 Last administered on 11/07/16 04:15; Admin Dose 0.4 MG; Start 11/04/16 at 22:00 Hydromorphone HCl (Dilaudid) 0.2 mg Q1H PRN IV PAIN LEVEL 1-5 Last administered on 11/08/16 21:57; Admin Dose 0.2 MG; Start 11/04/16 at 22:00 Hydromorphone HCl (Dilaudid) 0.4 mg Q1H PRN IV PAIN LEVEL 6-10; Start 11/04/16 at 22:00 Acetaminophen 650 mg 650 mg Q3H PRN SC ELEVATED TEMPERATURE; Start 11/04/16 at 22:00 Magnesium Sulfate/ Dextrose (Magnesium Sulfate 1 Gm/D5W) 100 ml @ 100 mls/hr PRN PRN IVPB PENDING LAB VALUE Last administered on 11/05/16 06:21; Admin Dose 100 MLS/HR; Start 11/04/16 at 23:30 Miscellaneous Information 1 ea NOTE XX ; Start 11/06/16 at 14:30 Glucose (Glutose) 15 gm Q15M PRN PO DECREASED GLUCOSE; Start 11/06/16 at 14:30 Glucose (Glutose) 22.5 gm Q15M PRN PO DECREASED GLUCOSE; Start 11/06/16 at 14: 30 Dextrose (D50w Syringe) 25 ml Q15M PRN IV DECREASED GLUCOSE; Start 11/06/16 at 14:30 Dextrose (D50w Syringe) 50 ml Q15M PRN IV DECREASED GLUCOSE; Start 11/06/16 at 14:30 Glucagon (Glucagen) 1 mg Q15M PRN IM DECREASED GLUCOSE; Start 11/06/16 at 14:30 Glucose (Glutose) 15 gm Q15M PRN BUCCAL DECREASED GLUCOSE; Start 11/06/16 at 14 :30 Enoxaparin Sodium (Lovenox) 40 mg DAILY SC Last administered on 11/11/16 08:32 ; Admin Dose 40 MG; Start 11/07/16 at 09:00 Morphine Sulfate (morphine) 4 mg Q4H PRN IV PAIN; Start 11/09/16 at 21:30 Gabapentin (Neurontin) 300 mg QHS PO Last administered on 11/13/16 21:03; Admin Dose 300 MG; Start 11/13/16 at 21:00 ETHEL CANNON MD Nov 14, 2016 09:50
[2016-11-14] MEDS: FAMOTIDINE 20 MG TAB PO SCH (10:00)
[2016-11-14] MEDS ORDERED: DOCUSATE SODIUM 100 MG CAP PO SCH (10:00)
[2016-11-14] MEDS: ASPIRIN 81 MG TAB PO SCH (10:00)
[2016-11-14] MEDS: METOPROLOL 25 MG TAB PO SCH (10:06)
[2016-11-14] MEDS: ENOXAPARIN 40 MG/0.4 ML SYG SC SCH (10:16)
--- NOTE | 2016-11-14 16:18 | DS ---
Date/Time of Note Date/Time of Note DATE: 11/14/16 TIME: 16:18 Discharge Summary Admission/Discharge Info Admit Date/Time Oct 31, 2016 at 11:41 Discharge Date/Time Discharge Diagnosis 1. Obstructive coronary artery disease with left main involvement s/p CABG 2. HTN 3. Hypoxic respiratory failure- resolved 4. DM 5. Anemia Patient Condition: Good Consults Cardiology- Dr. Robison/ Dr Devries CT Surgery- Dr. Oleary Pulmonology- Dr. Rosario Procedures 1. left heart catheterization 2. CABG 3. intubation Hx of Present Illness CC direct admit from labor relations worker for CABG eval HPI 61 yo M lifelong nonsmoker with pmhx HL admitted for CABG eval after [facility] today showed sig L main disease. 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 Cath today as above. Pt currently without chest pain, SOB or leg swelling Hospital Course Patient was taken to labor relations worker by [employer] and found to have obstructive coronary artery disease with left main involvement. CT surgeon was consulted with plans for coronary artery bypass grafting. After surgery patient was admitted to the ICU for close monitoring and ventilator support. Pulmonology was consulted for vent management. He intially had [address], was placed on insulin drip and pressor support as recommended by cardiothoracic surgery team. Patients condition was improving and was able to be extubated, weaned off pressor support, chest tubes were removed, and he was taken off insulin drip. Patient was experiencing thrombocytopenia which was monitored and resolved. Patient was working well with physical therapy and continued post op care. Patient was experiencing pain at site of left vein graft and started on Gabapentin which helped with neuropathy. Patient was doing well and dyspnea with ambulation greatly improved. His surgical incisions were healing well and patient was able to be discharged home in good condition with follows up within one week with specialists. Home Meds Active Scripts Docusate Sodium* (Colace*) 100 Mg Capsule, 100 MG PO BID Y for CONSTIPATION for 30 Days, #60 CAP Prov:ETHEL CANNON MD 11/14/16 Gabapentin* (Gabapentin*) 300 Mg Capsule, 300 MG PO QHS for 30 Days, #30 CAP Prov:ETHEL CANNON MD 11/14/16 Aspirin (Aspirin) 81 Mg Chew, 81 MG PO DAILY for 30 Days, #30 TAB Prov:ETHEL CANNON MD 11/14/16 Metoprolol Tartrate* (Lopressor*) 25 Mg Tab, 25 MG PO BID for 30 Days, #60 TAB Prov:ETHEL CANNON MD 11/14/16 Atorvastatin* (Atorvastatin*) 40 Mg Tablet, 40 MG PO HS for 30 Days, #30 TAB Prov:ETHEL CANNON MD 11/14/16 Follow-up Plan 1. 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 Devries, CT Surgeon, Dr. Oleary, and [facility] Family Services Worker Dr Rosario in the next week. 2. Take all medications as prescribed 3. Take Gabapentin 300mg at night for nerve pain and you can be titrated up. Please ask your PCP to assist with increasing medication dose 4. Follow a low sodium, low cholesterol diet. Best to increase intake of fruits and vegetables and lean protein 5. You will need to be cleared to drive by your PCP or one of the physicians you are following up with 6. If you experiencing chest pain, shortness of breath, loss of consciousness, or any other concerning symptoms, return to the ED Primary Care Provider Not On Staff Doctor Time spent on discharge: > 30 minutes Pending Labs Laboratory Tests Test 11/13/16 17:43 11/13/16 21:00 11/14/16 08:25 11/14/16 12:55 Bedside Glucose 94mg/dL (70-220) 104mg/dL (70-220) 95mg/dL (70-220) 83mg/dL (70-220) ETHEL CANNON MD Nov 14, 2016 16:18
--- NOTE | 2016-11-14 17:29 | CONS ---
Date/Time of Note Date/Time of Note DATE: 11/14/16 TIME: 17:29 Consult Date/Type/Reason Admit Date/Time Oct 31, 2016 at 11:41 Type of Consultation: cardiology Subjective CARDIOLOGY FOLLOW UP NOTE (covering for DR WATSON) . Discussed with the staff and rhythm was reviewed. pt remains in NSR. NO AFIB HE has no significant chest wall pain no new cardiac events. . Subjective: General: NO acute distress HEENT: NC/AT. pupils are equal. round. NECK:. no stridor. CV: RRR. systolic murmur; no gallop or rubs. PULM: no wheezing or rhonchi. chest : s/p sternotomy.. GI: SOFT, NT, ND, no rebound or guarding Extremity: trace B/L LE edema. no clubbing. neuro: awake and alert. responds appropriately Psych: calm and pleasant rectal: deferred Objective Vital Signs Date Time Temp Pulse Resp B/P Pulse Ox O2 Delivery O2 Flow Rate FiO2 11/14/16 16:30 80 11/14/16 15:26 97.5 20 107/59 100 11/11/16 02:35 21 Intake and Output 11/13/16 11/13/16 11/14/16 15:00 23:00 07:00 Intake Total 1100 ml 400 ml Balance 1100 ml 400 ml Results/Medications Result Diagram: 11/13/16 1102 11/13/16 1102 Results 24 hrs Laboratory Tests Test 11/13/16 17:43 11/13/16 21:00 11/14/16 08:25 11/14/16 12:55 Bedside Glucose 94 104 95 83 Medications Current Medications Atorvastatin Calcium (Lipitor) 40 mg HS PO Last administered on 11/13/16 21:03 ; Admin Dose 40 MG; Start 10/31/16 at 21:00 Metoprolol Tartrate (Lopressor) 25 mg BID PO Last administered on 11/14/16 10: 06; Admin Dose 25 MG; Start 10/31/16 at 21:00 Aspirin (Aspirin) 81 mg DAILY PO Last administered on 11/14/16 10:00; Admin Dose 81 MG; Start 11/01/16 at 09:00 Famotidine (Pepcid) 20 mg DAILY PO Last administered on 11/14/16 10:00; Admin Dose 20 MG; Start 11/03/16 at 18:00 Acetaminophen (Tylenol Tab) 650 mg Q6H PRN PO PAIN AND OR ELEVATED TEMP; Start 11/03/16 at 17:00 Ondansetron HCl (Zofran Inj) 4 mg Q6H PRN IV NAUSEA AND/OR VOMITING Last administered on 11/07/16 22:14; Admin Dose 4 MG; Start 11/03/16 at 17:00 Acetaminophen/ Hydrocodone Bitart ([place] (5/325)) 1 tab Q6H PRN PO PAIN LEVEL 8 -10 Last administered on 11/11/16 20:15; Admin Dose 1 TAB; Start 11/03/16 at 17 :00 Hydromorphone HCl (Dilaudid) 0.2 mg Q15M PRN IV PAIN LEVEL 1-5 Last administered on 11/07/16 22:15; Admin Dose 0.2 MG; Start 11/04/16 at 22:00 Hydromorphone HCl (Dilaudid) 0.4 mg Q15M PRN IV PAIN LEVEL 6-10 Last administered on 11/07/16 04:15; Admin Dose 0.4 MG; Start 11/04/16 at 22:00 Hydromorphone HCl (Dilaudid) 0.2 mg Q1H PRN IV PAIN LEVEL 1-5 Last administered on 11/08/16 21:57; Admin Dose 0.2 MG; Start 11/04/16 at 22:00 Hydromorphone HCl (Dilaudid) 0.4 mg Q1H PRN IV PAIN LEVEL 6-10; Start 11/04/16 at 22:00 Acetaminophen 650 mg 650 mg Q3H PRN CO ELEVATED TEMPERATURE; Start 11/04/16 at 22:00 Magnesium Sulfate/ Dextrose (Magnesium Sulfate 1 Gm/D5W) 100 ml @ 100 mls/hr PRN PRN IVPB PENDING LAB VALUE Last administered on 11/05/16 06:21; Admin Dose 100 MLS/HR; Start 11/04/16 at 23:30 Miscellaneous Information 1 ea NOTE XX ; Start 11/06/16 at 14:30 Glucose (Glutose) 15 gm Q15M PRN PO DECREASED GLUCOSE; Start 11/06/16 at 14:30 Glucose (Glutose) 22.5 gm Q15M PRN PO DECREASED GLUCOSE; Start 11/06/16 at 14: 30 Dextrose (D50w Syringe) 25 ml Q15M PRN IV DECREASED GLUCOSE; Start 11/06/16 at 14:30 Dextrose (D50w Syringe) 50 ml Q15M PRN IV DECREASED GLUCOSE; Start 11/06/16 at 14:30 Glucagon (Glucagen) 1 mg Q15M PRN IM DECREASED GLUCOSE; Start 11/06/16 at 14:30 Glucose (Glutose) 15 gm Q15M PRN BUCCAL DECREASED GLUCOSE; Start 11/06/16 at 14 :30 Enoxaparin Sodium (Lovenox) 40 mg DAILY SC Last administered on 11/14/16 10:16 ; Admin Dose 40 MG; Start 11/07/16 at 09:00 Morphine Sulfate (morphine) 4 mg Q4H PRN IV PAIN; Start 11/09/16 at 21:30 Gabapentin (Neurontin) 300 mg QHS PO Last administered on 11/13/16 21:03; Admin Dose 300 MG; Start 11/13/16 at 21:00 Docusate Sodium (Colace) 100 mg BID PO Last administered on 11/14/16 12:53; Admin Dose 100 MG; Start 11/14/16 at 10:00 Assessment/Plan Chief Complaint/Hosp Course Assessment: CAD: s/p CABG Abnormal EKG s/p post op hypoxemic resp failure; Extubated now hx of HTN: anemia DM: Recommendation/plan: cont post op care cont ASA STATIN betablocker as tolerated. dc planning when ok with CT surgery outpt cardiology follow up with DR Castillo THANK YOU BEBETO JAMES MD [facility] Problems: BEBETO JAMES MD Nov 14, 2016 17:29
== END 2016-11-14 17:29 | disposition home or self-care (01) | DRG 233 ==
LOC: SDS 08:32 → MS4 11:41 → SDS 15:55 → ICU 11-04 10:28 → TEL 11-08 17:47
PROVIDERS: ADMIT Internal Medicine; ATTEND Hospitalist
PROC: 4A023N7 Measurement of Cardiac Sampling and Pressure, Left Heart, Percutaneous Approach (ICD-10-PCS; 2016-10-31)
PROC: B211YZZ Fluoroscopy of Multiple Coronary Arteries using Other Contrast (ICD-10-PCS; 2016-10-31)
PROC: 02100Z9 Bypass Coronary Artery, One Artery from Left Internal Mammary, Open Approach (ICD-10-PCS; 2016-11-04)
PROC: 06BQ4ZZ Excision of Left Saphenous Vein, Percutaneous Endoscopic Approach (ICD-10-PCS; 2016-11-04)
PROC: 5A1221Z Performance of Cardiac Output, Continuous (ICD-10-PCS; 2016-11-04)
PROC: 30233R1 Transfusion of Nonautologous Platelets into Peripheral Vein, Percutaneous Approach (ICD-10-PCS; 2016-11-04)
PROC: 30233N1 Transfusion of Nonautologous Red Blood Cells into Peripheral Vein, Percutaneous Approach (ICD-10-PCS; 2016-11-04)
PROC: 30233K1 Transfusion of Nonautologous Frozen Plasma into Peripheral Vein, Percutaneous Approach (ICD-10-PCS; 2016-11-04)
PROC: 30233M1 Transfusion of Nonautologous Plasma Cryoprecipitate into Peripheral Vein, Percutaneous Approach (ICD-10-PCS; 2016-11-04)
PROC: 30233N1 Transfusion of Nonautologous Red Blood Cells into Peripheral Vein, Percutaneous Approach (ICD-10-PCS; 2016-11-04)
PROC: 021309W Bypass Coronary Artery, Four or More Arteries from Aorta with Autologous Venous Tissue, Open Approach (ICD-10-PCS; principal; 2016-11-04 11:00)
DX: I25.10 Atherosclerotic heart disease of native coronary artery without angina pectoris (principal); J95.821 Acute postprocedural respiratory failure; D69.6 Thrombocytopenia, unspecified; I10 Essential (primary) hypertension; E78.5 Hyperlipidemia, unspecified; I49.3 Ventricular premature depolarization; I95.81 Postprocedural hypotension; G62.9 Polyneuropathy, unspecified; Y83.2 Surgical operation with anastomosis, bypass or graft as the cause of abnormal reaction of the patient, or of later complication, without mention of misadventure at the time of the procedure; E11.9 Type 2 diabetes mellitus without complications; Y92.238 Other place in hospital as the place of occurrence of the external cause
CPT/HCPCS: 36430; 36592; 36600; 71010; 80048; 80053; 80061; 82550; 82553; 82803; 82962; 83036; 83605; 83735; 83880; 84100; 84484; 85014; 85025; 85610; 85730; 86644; 86850; 86900; 86901; 86920; 86945; 87040; 93005; 93306; 93312; 93325; 93458; 93880; 94002; 94003; 94770; 97116; 97162; 97530; J1940; C1887; C9250; J0131; J0171; J0690; J1170; J1265; J1644; J1650; J1815; J2001; J2150; J2250; J2260; J2270; J2370; J2405; J2440; J2720; J3010; J3370; J3475; J3480; J7030; J7060; J7070; J7189; P9016; P9035; P9045; P9047; P9059; Q9967

== ENCOUNTER 2017-03-01 10:29 | Emergency (ER) | END 2017-03-01 11:30 | disposition home or self-care (01) ==

== ENCOUNTER 2017-04-09 08:00 | Day surgery (SDC) | END 2017-04-09 13:55 | disposition home or self-care (01) ==